=== PATIENT | female | born 1940 | race Caucasian/White ===

== ENCOUNTER → 2016-07-24 | Outpatient (CLI) | payer OTHER ==
[~2016-07-24] MED LIST: CALC500T64 PO; CALCTAB5 PO; CHOL1CAP57 PO; CLIN300C2 PO; CRAN1CAP15 PO; DIGE1CAP7 PO; HYOS1TAB PO; MULTTAB58 PO; OMEGA XL PO; [UNRECOGNIZED DRUG - OTHER]; [UNRECOGNIZED DRUG - OTHER] PO
[2016-07-24 12:43] LABS: BASO % 1.4 %; BASO ABS # 0.08 K/uL (0-0.2); COMPLETE YES; EOS % 3.4 %; HEMATOCRIT 43.1 % (37-47); IG% 0.2 %; LYMPH % 31.7 %; LYMPH ABS # 1.87 K/uL (1.2-3.4); MEAN CELL VOLUME 91.1 fL (80-100); MEAN CORPUSCULAR HGB CONC 32.9 g/dl (32-36); MEAN PLATELET VOLUME 10.2 fL (7.4-10.4); NEUT % 54.3 %; PLATELET COUNT 299 K/uL (130-400); RED BLOOD COUNT 4.73 M/uL (4.2-5.4)
[2016-07-24 14:28] LABS: ALB/GLOB RATIO 1.2 (0.9-2); ALKALINE PHOSPHATASE 74 U/L (45-117); ALT/SGPT 25 U/L (12-78); AST/SGOT 18 U/L (15-37); BLOOD UREA NITROGEN 11 mg/dl (7-18); BUN/CREATININE RATIO 10.8 (10-20); CALCIUM 9.3 mg/dl (8.5-10.1); CARBON DIOXIDE 25 mmol/L (21-32); CHLORIDE 112 mmol/L (98-107); GLUCOSE 99 mg/dl (70-99); POTASSIUM 4.5 mmol/L (3.5-5.1); SODIUM 145 mmol/L (136-145)
--- NOTE | 2016-07-31 10:29 | CODING QUERY MEDICAL NECESSITY ---
CQSUPPORTING DIAGNOSIS NEEDED A supporting diagnosis is required for the test/procedure performed on this patient in order for us to be reimbursed by the patient's insurance. Please provide a supporting diagnosis for the following test/procedure listed below next to the test name along with your signature. *If there is no additional diagnosis for this patient that would support the following test/procedure please document that below next to the test/procedure. Test(s)/Procedure(s) that require a supporting diagnosis: DOS 07/24/16 VITAMIN D VITAMIN B12 Provider Signature: Date: Thank you Shanda [facility] Once completed, please kindly fax back to [phone] For questions please call [phone]
== END | disposition home or self-care (01) ==
LOC: C.LABPVFM 09:51
PROVIDERS: ATTEND Family Medicine
DX: K21.9 Gastro-esophageal reflux disease without esophagitis (principal); R53.83 Other fatigue; E55.9 Vitamin D deficiency, unspecified; M25.50 Pain in unspecified joint

== ENCOUNTER → 2016-11-09 | Outpatient (CLI) | payer OTHER ==
[2016-11-09 12:47] LABS: BASO % 1.4 %; BASO ABS # 0.07 K/uL (0-0.2); COMPLETE YES; EOS % 2.5 %; HEMATOCRIT 43.5 % (37-47); IG% 0.2 %; LYMPH % 34.4 %; LYMPH ABS # 1.67 K/uL (1.2-3.4); MEAN CORPUSCULAR HEMOGLOBIN 29.5 pg (25-34); MEAN CORPUSCULAR HGB CONC 32.4 g/dl (32-36); MONO % 9.7 %; NEUT % 51.8 %; PLATELET COUNT 325 K/uL (130-400); RED BLOOD COUNT 4.78 M/uL (4.2-5.4); WHITE BLOOD COUNT 4.86 K/uL (4.8-10.8)
[2016-11-09 13:09] LABS: ALT/SGPT 20 U/L (12-78); AST/SGOT 17 U/L (15-37); BLOOD UREA NITROGEN 14 mg/dl (7-18); BUN/CREATININE RATIO 11.4 (10-20); CALCIUM 9.3 mg/dl (8.5-10.1); CARBON DIOXIDE 25 mmol/L (21-32); CHLORIDE 109 mmol/L (98-107); GLUCOSE 100 mg/dl (70-99); POTASSIUM 4.1 mmol/L (3.5-5.1); SODIUM 140 mmol/L (136-145)
[2016-11-09 13:20] LABS: ALB/GLOB RATIO 1.2 (0.9-2); ALKALINE PHOSPHATASE 76 U/L (45-117)
[2016-11-13 03:57] LABS: EPSTEIN BARR VIR CAPSID IGG <18.00 U/ML
--- NOTE | 2016-11-20 13:11 | CODING QUERY MEDICAL NECESSITY ---
SUPPORTING DIAGNOSIS NEEDED A supporting diagnosis is required for the test/procedure performed on this patient in order for us to be reimbursed by the patient's insurance. Please provide a supporting diagnosis for the following test/procedure listed below next to the test name along with your signature. *If there is no additional diagnosis for this patient that would support the following test/procedure please document that below next to the test/procedure. Test(s)/Procedure(s) that require a supporting diagnosis: * VITAMIN B12 DIAGNOSIS: Provider Signature: Date: Thank you Jacqueline [place] [facility] Once completed, please kindly fax back to [phone] For questions please call [phone]
== END | disposition home or self-care (01) ==
LOC: C.LABPVFM 15:14
PROVIDERS: ATTEND Neuromusculoskeletal Medicine & OMM
DX: R53.83 Other fatigue (principal); E55.9 Vitamin D deficiency, unspecified; R59.1 Generalized enlarged lymph nodes

== ENCOUNTER 2016-12-03 13:49 | Emergency (ER) | payer OTHER ==
[~2016-12-03] VITALS: Ht 160 cm; Wt 88.0 kg
[~2016-12-03 13:49] MED LIST changes: -CLIN300C2 PO; -HYOS1TAB PO; -[UNRECOGNIZED DRUG - OTHER]
[2016-12-03 13:58] VITALS: TEMP 36.5; Ht 160 cm; Wt 88.0 kg
[2016-12-03] MEDS ORDERED: SODIUM CHLORIDE 0.9% 1000ML 1,000 ML IV STA (14:35)
[2016-12-03] MEDS ORDERED: OPTIRAY 320 IV PRN (14:45)
[2016-12-03 15:04] LABS: BASO % 1.1 %; BASO ABS # 0.07 K/uL (0-0.2); COMPLETE YES; EOS % 2.5 %; HEMATOCRIT 41.5 % (37-47); IG% 0.2 %; LYMPH % 30.2 %; LYMPH ABS # 1.96 K/uL (1.2-3.4); MEAN CELL VOLUME 89.6 fL (80-100); MEAN CORPUSCULAR HGB CONC 33.5 g/dl (32-36); MEAN PLATELET VOLUME 9.2 fL (7.4-10.4); MONO % 9.3 %; NEUT % 56.7 %; PLATELET COUNT 273 K/uL (130-400); RED BLOOD COUNT 4.63 M/uL (4.2-5.4); WHITE BLOOD COUNT 6.48 K/uL (4.8-10.8)
[2016-12-03 15:35] LABS: ALT/SGPT 19 U/L (12-78); AST/SGOT 15 U/L (15-37); BLOOD UREA NITROGEN 13 mg/dl (7-18); BUN/CREATININE RATIO 12.8 (10-20); CALCIUM 9.2 mg/dl (8.5-10.1); CARBON DIOXIDE 24 mmol/L (21-32); CHLORIDE 109 mmol/L (98-107); GLUCOSE 87 mg/dl (70-99); SODIUM 142 mmol/L (136-145)
[2016-12-03 15:38] LABS: ALKALINE PHOSPHATASE 75 U/L (45-117)
[2016-12-03] MEDS ORDERED: HYOS1TAB PO (15:46)
[2016-12-03] MEDS ORDERED: [UNRECOGNIZED DRUG - OTHER] (15:46)
[2016-12-03] MEDS ORDERED: CLIN300C2 PO (15:46)
--- NOTE | 2016-12-03 16:41 | DIAGNOSTIC IMAGING REPORT ---
CT OF THE ABDOMEN AND PELVIS WITH CONTRAST CLINICAL HISTORY: Right lower quadrant abdominal pain. COMPARISON STUDY: CT of the abdomen and pelvis July 07, 2013 and abdominal ultrasound January 26, 2015. TECHNIQUE: Following IV administration of 120 mL of Optiray-320, axial images of the abdomen and pelvis were obtained from the lung bases to the proximal femurs. Images were reviewed in the axial, sagittal, and coronal planes. IV contrast was administered without complication. A dose lowering technique was utilized adhering to the principles of ALARA. CT DOSE: 913.07 mGy.cm FINDINGS: A 1.4 cm hypodense splenic lesion is unchanged since CT of July 07, 2013. This is benign given stability. There is no biliary ductal dilatation status post cholecystectomy. No pancreatic ductal dilatation is present. The adrenal glands are unremarkable. There are bilateral parapelvic cysts. The caliber and wall thickness of small and large bowel are normal. The appendix is normal. There is colonic diverticulosis without evidence for acute diverticulitis. No lymphadenopathy is present. There are no suspicious osseous lesions. Bilateral fat-containing inguinal hernias are present. There is no ascites. No abscess is present. IMPRESSION: 1. No acute process within the abdomen or pelvis. Normal appendix. 2. Colonic diverticulosis without evidence for acute diverticulitis. Electronically signed by: Rony Becerril M.D. 12/03/2016 4:40 PM Dictated Date/Time: 12/03/2016 4:33 PM
[2016-12-03 16:42] VITALS: BP 126/78; PULSE 67; O2SAT 96
[2016-12-03 16:54] LABS: URINE APPEARANCE CLEAR (CLEAR); URINE BILIRUBIN NEG (NEG); URINE COLOR YELLOW; URINE NITRITE NEG (NEG); URINE PH 6.5 (4.5-7.5); URINE SPECIFIC GRAVITY 1.009 (1.000-1.030); UROBILINOGEN NEG (NEG); ZZUR CULT IF INDIC CLEAN CATCH NO
[2016-12-03 17:00] LABS: MANUAL MICROSCOPIC REQUIRED? YES; REVIEW REQ? NO
[2016-12-03] MEDS ORDERED: MAGNESIUM CITRATE 296 ML/BTL PO ONE (17:00)
[2016-12-03 17:11] LABS: URINE BACTERIA NEG (NEG); URINE RBC 0-4 /hpf (0-4)
--- NOTE | 2016-12-03 19:51 | EMERGENCY ROOM VISIT NOTE ---
History Report prepared by Nickolas: Hany Montes Under the Supervision of: Dr. Mauro Munoz D.O. First contact with patient: 13:57 Chief Complaint: ABDOMINAL PAIN Stated Complaint: ABDOMINAL PAIN- UNPREDICTABLE BOWEL MOVEMENTS Nursing Triage Summary: abdominal pain and constipation History of Present Illness The patient is a 76 year old female who presents to the Emergency Room with complaints of constant abdominal pain starting three days ago. The patient states that she has been constipated recently, and she states that three days ago she preformed a fleet enema, and she had only a small bowel movement. She states her last bowel movement before that was four days prior to that. She states that she had a bowel movement yesterday as well. She states that she has been having a dry cough and nausea with the constipation, and she has been taking MiraLAX every night and a muscle relaxer. The patient states that she has similar episodes about once per month for the past couple of years. She has a history of a cholecystectomy, and she states that she still has her appendix. Pt denies headache, change in vision, fevers, chest pain, shortness of breath, vomiting, diarrhea, pain with urination, and melena. Source of History: patient Onset: three days ago Position: abdomen Timing: constant Associated Symptoms: + cough, + nausea Note: Associated symptoms: constipation Review of Systems See HPI for pertinent positives & negatives. A total of 10 systems reviewed and were otherwise negative. Past Medical & Surgical Medical Problems: (1) Cholecystectomy (2) Pulmonary emboli Surgical Problems: (1) H/O: hysterectomy Social History Smoking Status: Never Smoker Marital Status: Housing Status: lives with family Current/Historical Medications Scheduled Clindamycin Hcl (Cleocin), 300 MG PO QID Scheduled PRN Hyoscyamine Sulfate (Levsin), 0.125 MG PO for Muscle Spasms Allergies Coded Allergies: Clarithromycin (Verified Allergy, Unknown, GI UPSET, 12/03/16) Metronidazole (Verified Allergy, Unknown, GI UPSET, 12/03/16) Penicillins (Verified Allergy, Unknown, AMPICILLIN, 12/03/16) Tetracycline (Verified Allergy, Unknown, 12/03/16) Physical Exam Vital Signs Date Time Temp Pulse Resp B/P (MAP) Pulse Ox O2 Delivery O2 Flow Rate FiO2 12/03/16 16:42 67 18 126/78 96 Room Air 12/03/16 13:58 36.5 91 16 139/98 98 Room Air Physical Exam GENERAL: Ambulating throughout the room, in minimal distress, non-toxic. EYE EXAM: normal conjunctiva OROPHARYNX: no exudate, no erythema, lips, buccal mucosa, and tongue normal and mucous membranes are moist NECK: supple, no nuchal rigidity, no adenopathy, non-tender LUNGS: Clear to auscultation. Normal chest wall mechanics HEART: no murmurs, S1 normal and S2 normal ABDOMEN: Minimal tenderness in the right lower quadrant. Abdomen soft, normo- active bowel sounds, no masses, no rebound or guarding. BACK: Back is symmetrical on inspection and there is no deformity, no midline tenderness, no CVA tenderness. SKIN: no rashes and no bruising UPPER EXTREMITIES: upper extremities are grossly normal. LOWER EXTREMITIES: No pitting edema. NEURO EXAM: Normal sensorium, cranial nerves II-XII grossly intact, normal speech, no gross weakness of arms, no gross weakness of legs. Gross sensation intact. Medical Decision & Procedures ER Provider Diagnostic Interpretation: Radiology results as stated below per my review and the radiologist's interpretation: CT OF THE ABDOMEN AND PELVIS WITH CONTRAST CLINICAL HISTORY: Right lower quadrant abdominal pain. COMPARISON STUDY: CT of the abdomen and pelvis July 07, 2013 and abdominal ultrasound January 26, 2015. TECHNIQUE: Following IV administration of 120 mL of Optiray-320, axial images of the abdomen and pelvis were obtained from the lung bases to the proximal femurs. Images were reviewed in the axial, sagittal, and coronal planes. IV contrast was administered without complication. A dose lowering technique was utilized adhering to the principles of ALARA. CT DOSE: 913.07 mGy.cm FINDINGS: A 1.4 cm hypodense splenic lesion is unchanged since CT of July 07, 2013. This is benign given stability. There is no biliary ductal dilatation status post cholecystectomy. No pancreatic ductal dilatation is present. The adrenal glands are unremarkable. There are bilateral parapelvic cysts. The caliber and wall thickness of small and large bowel are normal. The appendix is normal. There is colonic diverticulosis without evidence for acute diverticulitis. No lymphadenopathy is present. There are no suspicious osseous lesions. Bilateral fat-containing inguinal hernias are present. There is no ascites. No abscess is present. IMPRESSION: 1. No acute process within the abdomen or pelvis. Normal appendix. 2. Colonic diverticulosis without evidence for acute diverticulitis. Electronically signed by: Rony Becerril M.D. 12/03/2016 4:40 PM Dictated Date/Time: 12/03/2016 4:33 PM Laboratory Results 12/03/16 14:50 Red Blood Count 4.63, Mean Corpuscular Volume 89.6, Mean Corpuscular Hemoglobin 30.0, Mean Corpuscular Hemoglobin Concent 33.5, Mean Platelet Volume 9.2, Neutrophils (%) (Auto) 56.7, Lymphocytes (%) (Auto) 30.2, Monocytes (%) (Auto) 9.3, Eosinophils (%) (Auto) 2.5, Basophils (%) (Auto) 1.1, Neutrophils # (Auto) 3.68, Lymphocytes # (Auto) 1.96, Monocytes # (Auto) 0.60, Eosinophils # (Auto) 0.16, Basophils # (Auto) 0.07 12/03/16 14:50 Test 12/03/16 14:50 12/03/16 15:50 White Blood Count 6.48 K/uL (4.8-10.8) Red Blood Count 4.63 M/uL (4.2-5.4) Hemoglobin 13.9 g/dL (12.0-16.0) Hematocrit 41.5 % (37-47) Mean Corpuscular Volume 89.6 fL (80-100) Mean Corpuscular Hemoglobin 30.0 pg (25-34) Mean Corpuscular Hemoglobin Concent 33.5 g/dl (32-36) Platelet Count 273 K/uL (130-400) Mean Platelet Volume 9.2 fL (7.4-10.4) Neutrophils (%) (Auto) 56.7 % Lymphocytes (%) (Auto) 30.2 % Monocytes (%) (Auto) 9.3 % Eosinophils (%) (Auto) 2.5 % Basophils (%) (Auto) 1.1 % Neutrophils # (Auto) 3.68 K/uL (1.4-6.5) Lymphocytes # (Auto) 1.96 K/uL (1.2-3.4) Monocytes # (Auto) 0.60 K/uL (0.11-0.59) Eosinophils # (Auto) 0.16 K/uL (0-0.5) Basophils # (Auto) 0.07 K/uL (0-0.2) RDW Standard Deviation 44.6 fL (36.4-46.3) RDW Coefficient of Variation 13.5 % (11.5-14.5) Immature Granulocyte % (Auto) 0.2 % Immature Granulocyte # (Auto) 0.01 K/uL (0.00-0.02) Anion Gap 9.0 mmol/L (3-11) Est Creatinine Clear Calc Drug Dose 50.3 ml/min Estimated GFR () 63.4 Estimated GFR (Non- 54.7 BUN/Creatinine Ratio 12.8 (10-20) Calcium Level 9.2 mg/dl (8.5-10.1) Total Bilirubin 0.5 mg/dl (0.2-1) Direct Bilirubin < 0.1 mg/dl (0-0.2) Aspartate Amino Transf (AST/SGOT) 15 U/L (15-37) Alanine Aminotransferase (ALT/SGPT) 19 U/L (12-78) Alkaline Phosphatase 75 U/L (45-117) Total Protein 6.6 gm/dl (6.4-8.2) Albumin 3.6 gm/dl (3.4-5.0) Lipase 147 U/L (73-393) Urine Color YELLOW Urine Appearance CLEAR (CLEAR) Urine pH 6.5 (4.5-7.5) Urine Specific [place] 1.009 (1.000-1.030) Urine Protein NEG (NEG) Urine Glucose (UA) NEG (NEG) Urine Ketones NEG (NEG) Urine Occult Blood NEG (NEG) Urine Nitrite NEG (NEG) Urine Bilirubin NEG (NEG) Urine Urobilinogen NEG (NEG) Urine Leukocyte Esterase NEG (NEG) Urine WBC (Auto) /hpf (0-5) Urine RBC (Auto) /hpf (0-4) Urine Hyaline Casts (Auto) /lpf (0-5) Urine Epithelial Cells (Auto) /lpf (0-5) Urine Bacteria (Auto) (NEG) Urine RBC 0-4 /hpf (0-4) Urine WBC 1-5 /hpf (0-5) Urine Epithelial Cells 0-5 /lpf (0-5) Urine Bacteria NEG (NEG) Laboratory results per my review. Medications Administered Medications (Trade) Dose Ordered Sig/Franco Route Start Time Stop Time Status Last Admin Dose Admin Sodium Chloride 1,000 ml @ 999 mls/hr Q1H1M STAT IV 12/03/16 14:35 12/03/16 15:35 DC 12/03/16 14:53 999 MLS/HR Magnesium Citrate (Citrate Of Magnesia Soln) 296 ml ONE ONCE PO 12/03/16 17:00 12/03/16 17:01 DC 12/03/16 17:00 296 ML ED Course ED COURSE: Vital signs were reviewed and showed situational hypertension. The patients medical record was reviewed The above diagnostic studies were performed and reviewed. ED treatments and interventions as stated above. 1440: The patient was evaluated in room B9. A complete history and physical examination was performed. 1435: Sodium Chloride 1000 ml @ 999 mls/hr IV 1700: Magnesium Citrate 296ml PO 1705: Upon reevaluation, the patient is doing well.I discussed my findings with the patient and she understands and agrees with the treatment plan. Based on the patients age, coexisting illnesses, exam and lab findings the decision to treat as an outpatient was made. The patient remained stable while under my care. The patient appeared well at the time of discharge. Medical Decision Differential diagnoses includes but is not limited to gastritis, peptic ulcer disease, GERD, gallbladder disease, pancreatitis, small bowel obstruction, acute coronary syndrome, pericarditis, ischemic bowel, irritable bowel disease, irritable bowel syndrome, appendicitis, diverticulitis, malignancy, hernia, urinary tract infection, torsion, /ectopic , perforation, trauma, infectious. Patient is a 76-year-old female who presents to ER for abdominal pain in the right lower quadrant. She notes that she gets these pains about once a month. Symptoms started Saturday after using 2 fleets enemas. Patient did have a small bowel movement. Does have a previous cholecystectomy. CBC along with all BMP, LFTs, bilirubin and lipase is unremarkable. UA was negative. CT of abdomen and pelvis was unremarkable. A she was updated regards to her findings. She is discharged with mag citrate and discharged to follow-up with PCP. She did decline any pain meds that she is feeling better in the ER. Discussed with Pt concerning signs and symptoms to watch out for. Pt was instructed to follow up with their PCP and discussed with the patient their option to return to the ED at anytime for persistent or worsening symptoms. The appropriate anticipatory guidance and out-patient management, including indications for return to the emergency department, were explained at length to the patient and understood. Medication Reconcilliation Current Medication List: was personally reviewed by me Blood Pressure Screening Patient's blood pressure: Elevated blood pressure Blood pressure disposition: Elevated BP felt to be situational Impression Primary Impression: Diffuse abdominal pain Additional Impression: Constipation Scribe Attestation The scribe's documentation has been prepared under my direction and personally reviewed by me in its entirety. I confirm that the note above accurately reflects all work, treatment, procedures, and medical decision making performed by me. Departure Information Dispostion Home / Self-Care Referrals No Doctor, Assigned (PCP) Forms Call Back Authorization, HOME CARE DOCUMENTATION FORM, IMPORTANT VISIT INFORMATION Patient Instructions Abdominal Pain - [facility], ED Constipation, [facility] Additional Instructions Please follow up with your primary care doctor with in the next 24 hours. Any worsening of your symptoms, please return to the ED immediately. This includes any fevers greater than 100.4, worsening pain, chest pain, shortness breath, persistent nausea, vomiting, unable to eat or drink, or any other concerning signs or symptoms from your standpoint. Please take the bottle of mag citrate along with 2 glasses of water. If No bowel movement within 12 hours please take 250 g of MiraLAX and mix with 64 ounces of Gatorade. Please drink 8 ounces every 15-30 minutes until it is completely gone and or you have a bowel movement. Problem Qualifiers Additional Impression: Constipation Constipation type: unspecified constipation type Qualified Codes: K59.00 - Constipation, unspecified
== END 2016-12-03 17:10 | disposition home or self-care (01) ==
LOC: C.EDB 13:50
DX: K59.00 Constipation, unspecified (principal); Z90.49 Acquired absence of other specified parts of digestive tract; Z86.711 Personal history of pulmonary embolism; Z90.710 Acquired absence of both cervix and uterus

== ENCOUNTER → 2017-03-05 | Outpatient (CLI) | payer OTHER ==
[~2017-03-05] MED LIST changes: -CALC500T64 PO; -CALCTAB5 PO; -CHOL1CAP57 PO; +CLIN300C2 PO; -CRAN1CAP15 PO; -DIGE1CAP7 PO; +HYOS1TAB PO; -MULTTAB58 PO; -OMEGA XL PO; -[UNRECOGNIZED DRUG - OTHER] PO
== END | disposition home or self-care (01) ==
LOC: C.LABPVFM 09:32
PROVIDERS: ATTEND Family Medicine
DX: S40.262A Insect bite (nonvenomous) of left shoulder, initial encounter (principal); W57.XXXA Bitten or stung by nonvenomous insect and other nonvenomous arthropods, initial encounter

== ENCOUNTER → 2017-07-11 | Outpatient (CLI) | payer OTHER ==
[2017-07-11 18:28] LABS: ALBUMIN 3.7 gm/dl (3.4-5.0); ALT/SGPT 20 U/L (12-78); AST/SGOT 17 U/L (15-37); BLOOD UREA NITROGEN 14 mg/dl (7-18); CARBON DIOXIDE 26 mmol/L (21-32); CREATININE 1.19 mg/dl (0.60-1.20); GLUCOSE 117 mg/dl (70-99); SODIUM 142 mmol/L (136-145)
[2017-07-11 18:31] LABS: ALKALINE PHOSPHATASE 70 U/L (45-117)
== END | disposition home or self-care (01) ==
LOC: C.LABPVFM 12:03
PROVIDERS: ATTEND Family Medicine
DX: R03.0 Elevated blood-pressure reading, without diagnosis of hypertension (principal)

== ENCOUNTER 2017-09-27 16:25 | Emergency (ER) | payer OTHER ==
[~2017-09-27] VITALS: Ht 161.3 cm; Wt 83.8 kg
[2017-09-27 16:31] VITALS: TEMP 36.4; Ht 161.3 cm; Wt 83.8 kg
[2017-09-27] MEDS ORDERED: MECLIZINE HCL 25 MG TAB PO STA (17:33)
[2017-09-27] MEDS ORDERED: SODIUM CHLORIDE 0.9% 1000ML 1,000 ML IV ONE (17:36)
[2017-09-27 17:55] LABS: BASO % 1.1 %; BASO ABS # 0.07 K/uL (0-0.2); EOS % 2.7 %; EOS ABS # 0.18 K/uL (0-0.5); HEMATOCRIT 42.2 % (37-47); HEMOGLOBIN 14.2 g/dL (12.0-16.0); IG# 0.01 K/uL (0.00-0.02); LYMPH % 23.3 %; LYMPH ABS # 1.55 K/uL (1.2-3.4); MEAN CELL VOLUME 89.6 fL (80-100); MEAN CORPUSCULAR HEMOGLOBIN 30.1 pg (25-34); MEAN CORPUSCULAR HGB CONC 33.6 g/dl (32-36); MEAN PLATELET VOLUME 9.7 fL (7.4-10.4); MONO % 10.1 %; MONO ABS # 0.67 K/uL (0.11-0.59); NEUT % 62.6 %; NEUT ABS # 4.17 K/uL (1.4-6.5); PLATELET COUNT 272 K/uL (130-400); RED CELL DISTRIBUTION WIDTH CV 13.7 % (11.5-14.5); RED CELL DISTRIBUTION WIDTH SD 45.3 fL (36.4-46.3); WHITE BLOOD COUNT 6.65 K/uL (4.8-10.8)
[2017-09-27] MEDS ORDERED: OPTIRAY 320 IV PRN (18:00)
[2017-09-27 18:19] VITALS: O2SAT 98
[2017-09-27 18:22] LABS: ALBUMIN 3.7 gm/dl (3.4-5.0); ALKALINE PHOSPHATASE 71 U/L (45-117); ALT/SGPT 23 U/L (12-78); AST/SGOT 17 U/L (15-37); BLOOD UREA NITROGEN 14 mg/dl (7-18); CALCIUM 8.8 mg/dl (8.5-10.1); CARBON DIOXIDE 24 mmol/L (21-32); CREATININE 1.07 mg/dl (0.60-1.20); GLUCOSE 94 mg/dl (70-99); SODIUM 140 mmol/L (136-145); TOTAL PROTEIN 6.7 gm/dl (6.4-8.2)
--- NOTE | 2017-09-27 19:13 | DIAGNOSTIC IMAGING REPORT ---
CT OF THE HEAD WITHOUT CONTRAST CLINICAL HISTORY: Weakness. Dizziness. COMPARISON STUDY: Head CT June 03, 2015. TECHNIQUE: Helical axial images of the head were obtained without IV contrast. Automated exposure control was utilized for the study. A dose lowering technique was utilized adhering to the principles of ALARA. FINDINGS: No acute intracranial hemorrhage, midline shift or mass effect is present. Ventricular system is normal. Basilar cisterns are patent. There are no extra-axial collections. There are no findings to suggest acute dural sinus thrombosis or acute territorial infarct. Mild white matter hypodensity suggests small vessel disease. There are no significant calvarial abnormalities. Visualized portions of the sinuses and mastoid air cells are clear. IMPRESSION: No acute intracranial findings. Electronically signed by: Rony Becerril M.D. 09/27/2017 7:12 PM Dictated Date/Time: 09/27/2017 7:10 PM
--- NOTE | 2017-09-27 19:18 | DIAGNOSTIC IMAGING REPORT ---
CT ANGIOGRAPHY OF THE NECK WITH CONTRAST CLINICAL HISTORY: Dizziness. Neck pain. Weakness. COMPARISON STUDY: Carotid ultrasound May 04, 2013. Technique: CT angiography of the carotid and vertebral arteries was obtained using [employer] 320 IV and 3D reconstruction on an independent workstation. NASCET criteria was utilized. A dose lowering technique was utilized adhering to the principles of ALARA. Findings: Lung apices are clear. There is no cervical lymphadenopathy. A subcentimeter right lobe thyroid nodule is noted. Epiglottis is normal. No mucosal lesion is identified although these may be occult by CT. Parotid and submandibular glands are normal. The bilateral common carotid, internal carotid and vertebral arteries are patent. There is no stenosis or dissection within the major vessels of the neck. The CTA of the head will be reported separately. IMPRESSION: Unremarkable CTA of the neck. No stenosis or dissection. Electronically signed by: Rony Becerril M.D. 09/27/2017 7:17 PM Dictated Date/Time: 09/27/2017 7:12 PM
--- NOTE | 2017-09-27 19:22 | DIAGNOSTIC IMAGING REPORT ---
CTA ANGIOGRAPHY OF THE HEAD CLINICAL HISTORY: Dizziness. Weakness. COMPARISON STUDY: CTA of the head March 15, 2012. TECHNIQUE: Helical axial images of the head were obtained following uneventful intravenous administration of 115 cc of Optiray 320. A dose lowering technique was utilized adhering to the principles of ALARA. CT DOSE: 1056.17 mGy.cm FINDINGS: Please note that the CTA of the neck will be reported separately. The bilateral M1, 2, A1 and A2 segments are patent. Posterior circulation is intact. No intracranial aneurysm or dissection is noted. There is no abrupt vessel cut off. No intraluminal thrombus is identified. The CT of the head will be reported separately. Ventricular system is normal. Basilar cisterns are patent. There are no extra-axial collections. IMPRESSION: Unremarkable CTA of the head. Electronically signed by: Rony Becerril M.D. 09/27/2017 7:21 PM Dictated Date/Time: 09/27/2017 7:18 PM
[2017-09-27] MEDS ORDERED: KETOROLAC TROMETHAMINE 30 MG/ML VIAL IV STA (19:51)
[2017-09-27] MEDS ORDERED: ONDANSETRON INJ 2 MG/ML 2 ML VIAL IV STA (20:34)
--- NOTE | 2017-09-27 21:48 | DIAGNOSTIC IMAGING REPORT ---
MRI OF THE BRAIN WITHOUT CONTRAST CLINICAL HISTORY: Headache, dizzy and vomiting. COMPARISON STUDY: MRI of the brain September 11, [address]/CTA of the head performed earlier today. TECHNIQUE: Utilizing a 1.5 Molly magnet and dedicated coil, multiplanar, multiecho imaging of the brain was performed without IV contrast. FINDINGS: There are no foci of restricted diffusion to suggest acute infarct. No acute intracranial hemorrhage, midline shift or mass effect is present. Brain volume is normal for age. Ventricular system is unremarkable. Basilar cisterns are patent. There are no extra-axial collections. Flow-voids for the major intracranial vessels are present. No intracranial masses are identified on this unenhanced exam. White matter T2 hyperintense foci suggest mild small vessel disease. Orbits are unremarkable. Sinuses are clear. IMPRESSION: No acute intracranial findings. Electronically signed by: Rony Becerril M.D. 09/27/2017 9:46 PM Dictated Date/Time: 09/27/2017 9:43 PM
--- NOTE | 2017-09-27 22:05 | EMERGENCY ROOM VISIT NOTE ---
History Report prepared by Nickolas: María Elena Zhu Under the Supervision of: Dr. Nile Chavez M.D. First contact with patient: 17:14 Chief Complaint: DIZZY Stated Complaint: REFERRED BY DR FOR CAT SCAN, DIZZINESS,NECK PAIN History of Present Illness The patient is a 77 year old female who presents to the Emergency Room with complaints of intermittent dizziness starting a month ago. The patient states that 3 weeks ago she went to her PCP for a fullness feeling in her ears that intermittently is a shooting pain. She states that with the ear pain, she has had positional dizziness and a headache. She describes the headache as a pressure. She reports the her PCP did not do anything. She notes that she saw her chiropractor shortly after who recommended she see a therapist for vestibular therapy. The patient states that she had her first session 2 days ago. She states that the therapy made her vomit, but after seemed to help her dizziness. She states that yesterday she took it easy, but this morning she woke up without any balance. She notes that she has tried taking Tylenol with some relief. She notes that she was given medications for vertigo, but since it is mainly positional, she has not taken them. The patient complains of neck pain , nausea, pain in her right eye, seeing prisms in her bilateral eyes, and intermittent complete vision loss in her right eye. She notes that she last had vision loss last a month ago and it lasted for 15 minutes. The patient denies recent falls, numbness, weakness, fever, vomiting, loss of appetite, and use of a blood thinner. Source of History: patient Onset: a month ago Quality: other (dizziness) Timing: intermittent Modifying Factors (Worsening): other (positional) Modifying Factors (Relieving): tylenol, other (vestibular therapy) Associated Symptoms: + headache, + neck pain, + nausea, No fevers, No vomiting, No weakness, No numbness Note: The patient complains of ear pain, pain in her right eye, seeing prisms in her bilateral eyes, and intermittent complete vision loss in her right eye. The patient denies loss of appetite. Review of Systems See HPI for pertinent positives and negatives. A total of ten systems were reviewed and were otherwise negative. Past Medical & Surgical Medical Problems: (1) Cholecystectomy (2) Pulmonary emboli Surgical Problems: (1) H/O: hysterectomy Family History No pertinent family history Social History Smoking Status: Never Smoker Marital Status: Housing Status: lives with family Current/Historical Medications Scheduled Clindamycin Hcl (Cleocin), 300 MG PO QID Scheduled PRN Hyoscyamine Sulfate (Levsin), 0.125 MG PO for Muscle Spasms Allergies Coded Allergies: Penicillins (Verified Allergy, Unknown, AMPICILLIN, 12/03/16) Tetracycline (Verified Allergy, Unknown, 12/03/16) Clarithromycin (Unverified Adverse Reaction, Unknown, GI UPSET, 09/27/17) Metronidazole (Unverified Adverse Reaction, Unknown, GI UPSET, 09/27/17) Physical Exam Vital Signs Date Time Temp Pulse Resp B/P (MAP) Pulse Ox O2 Delivery O2 Flow Rate FiO2 09/27/17 22:47 72 16 130/78 96 09/27/17 21:37 62 18 150/83 98 Room Air 09/27/17 20:00 63 17 163/80 98 Room Air 09/27/17 19:46 61 16 153/83 96 Room Air 09/27/17 18:41 63 09/27/17 18:19 98 Room Air 09/27/17 18:19 75 143/79 99 71 147/82 79 135/83 09/27/17 16:31 36.4 75 17 156/95 97 Room Air Physical Exam GENERAL: Awake, alert, well-appearing, in no distress HENT: Normocephalic, atraumatic. Oropharynx unremarkable. EYES: Normal conjunctiva. Sclera non-icteric. NECK: Supple. No nuchal rigidity. RESPIRATORY: Clear to auscultation. No wheezes. Normal respiratory effort. CARDIAC: Normal rate. Normal rhythm. Extremities warm and well perfused. GI: Soft, non-distended. No tenderness to palpation. No rebound or guarding. No masses. RECTAL: Deferred. MUSCULOSKELETAL: Atraumatic. Chest examination reveals no tenderness. The back is symmetrical on inspection without obvious abnormality. There is no CVA tenderness to palpation. LOWER EXTREMITIES: Calves are equal size bilaterally and non-tender. No edema NEURO: Normal sensorium. No sensory or motor deficits noted. SKIN: Warm and dry. No rash or jaundice noted. Medical Decision & Procedures ER Provider Diagnostic Interpretation: Radiology results as stated below per my review and radiologist interpretation: CT ANGIOGRAPHY OF THE NECK WITH CONTRAST CLINICAL HISTORY: Dizziness. Neck pain. Weakness. COMPARISON STUDY: Carotid ultrasound May 04, 2013. Technique: CT angiography of the carotid and vertebral arteries was obtained using Optiray 320 IV and 3D reconstruction on an independent workstation. NASCET criteria was utilized. A dose lowering technique was utilized adhering to the principles of ALARA. Findings: Lung apices are clear. There is no cervical lymphadenopathy. A subcentimeter right lobe thyroid nodule is noted. Epiglottis is normal. No mucosal lesion is identified although these may be occult by CT. Parotid and submandibular glands are normal. The bilateral common carotid, internal carotid and vertebral arteries are patent. There is no stenosis or dissection within the major vessels of the neck. The CTA of the head will be reported separately. IMPRESSION: Unremarkable CTA of the neck. No stenosis or dissection. Electronically signed by: Rony Becerril M.D. 09/27/2017 7:17 PM Dictated Date/Time: 09/27/2017 7:12 PM CTA ANGIOGRAPHY OF THE HEAD CLINICAL HISTORY: Dizziness. Weakness. COMPARISON STUDY: CTA of the head March 15, 2012. TECHNIQUE: Helical axial images of the head were obtained following uneventful intravenous administration of 115 cc of Optiray 320. A dose lowering technique was utilized adhering to the principles of ALARA. CT DOSE: 1056.17 mGy.cm FINDINGS: Please note that the CTA of the neck will be reported separately. The bilateral M1, 2, A1 and A2 segments are patent. Posterior circulation is intact. No intracranial aneurysm or dissection is noted. There is no abrupt vessel cut off. No intraluminal thrombus is identified. The CT of the head will be reported separately. Ventricular system is normal. Basilar cisterns are patent. There are no extra-axial collections. IMPRESSION: Unremarkable CTA of the head. Electronically signed by: Rony Becerril M.D. 09/27/2017 7:21 PM Dictated Date/Time: 09/27/2017 7:[address] OF THE HEAD WITHOUT CONTRAST CLINICAL HISTORY: Weakness. Dizziness. COMPARISON STUDY: Head CT June 03, 2015. TECHNIQUE: Helical axial images of the head were obtained without IV contrast. Automated exposure control was utilized for the study. A dose lowering technique was utilized adhering to the principles of ALARA. FINDINGS: No acute intracranial hemorrhage, midline shift or mass effect is present. Ventricular system is normal. Basilar cisterns are patent. There are no extra-axial collections. There are no findings to suggest acute dural sinus thrombosis or acute territorial infarct. Mild white matter hypodensity suggests small vessel disease. There are no significant calvarial abnormalities. Visualized portions of the sinuses and mastoid air cells are clear. IMPRESSION: No acute intracranial findings. Electronically signed by: Rony Becerril M.D. 09/27/2017 7:12 PM Dictated Date/Time: 09/27/2017 7:10 PM MRI OF THE BRAIN WITHOUT CONTRAST CLINICAL HISTORY: Headache, dizzy and vomiting. COMPARISON STUDY: MRI of the brain September 11, [address]/CTA of the head performed earlier today. TECHNIQUE: Utilizing a 1.5 Molly magnet and dedicated coil, multiplanar, multiecho imaging of the brain was performed without IV contrast. FINDINGS: There are no foci of restricted diffusion to suggest acute infarct. No acute intracranial hemorrhage, midline shift or mass effect is present. Brain volume is normal for age. Ventricular system is unremarkable. Basilar cisterns are patent. There are no extra-axial collections. Flow-voids for the major intracranial vessels are present. No intracranial masses are identified on this unenhanced exam. White matter T2 hyperintense foci suggest mild small vessel disease. Orbits are unremarkable. Sinuses are clear. IMPRESSION: No acute intracranial findings. Electronically signed by: Rony Becerril M.D. 09/27/2017 9:46 PM Dictated Date/Time: 09/27/2017 9:43 PM Laboratory Results 09/27/17 17:44 Red Blood Count 4.71, Mean Corpuscular Volume 89.6, Mean Corpuscular Hemoglobin 30.1, Mean Corpuscular Hemoglobin Concent 33.6, Mean Platelet Volume 9.7, Neutrophils (%) (Auto) 62.6, Lymphocytes (%) (Auto) 23.3, Monocytes (%) (Auto) 10.1, Eosinophils (%) (Auto) 2.7, Basophils (%) (Auto) 1.1, Neutrophils # (Auto ) 4.17, Lymphocytes # (Auto) 1.55, Monocytes # (Auto) 0.67, Eosinophils # (Auto ) 0.18, Basophils # (Auto) 0.07 09/27/17 17:44 Test 09/27/17 17:44 09/27/17 18:25 White Blood Count 6.65 K/uL (4.8-10.8) Red Blood Count 4.71 M/uL (4.2-5.4) Hemoglobin 14.2 g/dL (12.0-16.0) Hematocrit 42.2 % (37-47) Mean Corpuscular Volume 89.6 fL (80-100) Mean Corpuscular Hemoglobin 30.1 pg (25-34) Mean Corpuscular Hemoglobin Concent 33.6 g/dl (32-36) Platelet Count 272 K/uL (130-400) Mean Platelet Volume 9.7 fL (7.4-10.4) Neutrophils (%) (Auto) 62.6 % Lymphocytes (%) (Auto) 23.3 % Monocytes (%) (Auto) 10.1 % Eosinophils (%) (Auto) 2.7 % Basophils (%) (Auto) 1.1 % Neutrophils # (Auto) 4.17 K/uL (1.4-6.5) Lymphocytes # (Auto) 1.55 K/uL (1.2-3.4) Monocytes # (Auto) 0.67 K/uL (0.11-0.59) Eosinophils # (Auto) 0.18 K/uL (0-0.5) Basophils # (Auto) 0.07 K/uL (0-0.2) RDW Standard Deviation 45.3 fL (36.4-46.3) RDW Coefficient of Variation 13.7 % (11.5-14.5) Immature Granulocyte % (Auto) 0.2 % Immature Granulocyte # (Auto) 0.01 K/uL (0.00-0.02) Erythrocyte Sedimentation Rate 11 mm/hr (0-21) Anion Gap 7.0 mmol/L (3-11) Est Creatinine Clear Calc Drug Dose 45.6 ml/min Estimated GFR () 58.0 Estimated GFR (Non- 50.0 BUN/Creatinine Ratio 13.2 (10-20) Calcium Level 8.8 mg/dl (8.5-10.1) Total Bilirubin 0.4 mg/dl (0.2-1) Direct Bilirubin 0.1 mg/dl (0-0.2) Aspartate Amino Transf (AST/SGOT) 17 U/L (15-37) Alanine Aminotransferase (ALT/SGPT) 23 U/L (12-78) Alkaline Phosphatase 71 U/L (45-117) Troponin I < 0.015 ng/ml (0-0.045) C-Reactive Protein < 0.29 mg/dl (0-0.29) Total Protein 6.7 gm/dl (6.4-8.2) Albumin 3.7 gm/dl (3.4-5.0) Thyroid Stimulating Hormone (TSH) 1.800 uIu/ml (0.300-4.500) Urine Color YELLOW Urine Appearance CLEAR (CLEAR) Urine pH 5.5 (4.5-7.5) Urine Specific Ramona 1.009 (1.000-1.030) Urine Protein NEG (NEG) Urine Glucose (UA) NEG (NEG) Urine Ketones NEG (NEG) Urine Occult Blood NEG (NEG) Urine Nitrite NEG (NEG) Urine Bilirubin NEG (NEG) Urine Urobilinogen NEG (NEG) Urine Leukocyte Esterase NEG (NEG) Laboratory results reviewed by me Medications Administered Medications (Trade) Dose Ordered Sig/Franco Route Start Time Stop Time Status Last Admin Dose Admin Meclizine HCl (Antivert Tab) 25 mg NOW STAT PO 09/27/17 17:33 09/27/17 17:36 DC 09/27/17 18:29 25 MG Sodium Chloride 1,000 ml @ 999 mls/hr Q1H1M ONCE IV 09/27/17 17:36 09/27/17 18:36 DC 09/27/17 18:29 999 MLS/HR Ketorolac Tromethamine (Toradol Inj) 15 mg NOW STAT IV 09/27/17 19:51 09/27/17 19:52 DC 09/27/17 20:09 15 MG Ondansetron HCl (Zofran Inj) 4 mg NOW STAT IV 09/27/17 20:34 09/27/17 20:36 DC 09/27/17 20:48 4 MG ECG Per My Interpretation Indication: other (dizziness) Rate (beats per minute): 60 Rhythm: normal sinus Findings: RBBB (incomplete), other (no ST segment elevations, normal axis) Comparison ECG Date: 07/13/2015 Change: no significant change ED Course 1716: The patient was evaluated in room B11A. A complete history and physical exam was performed. 1733: Ordered Meclizine HCl 25 mg PO. 1735: Ordered NSS 1000 ml @ 999 mls/hr IV. 1950: Ordered Toradol Inj 15 mg IV. 2012: I reevaluated the patient and she became dizzy in Ct. She still is complaining of a headache. 2029: I reevaluated the patient and she became nauseous. She did vomit a this time. 2032: I discussed the patient's case with Dr. Hunter- [facility] Hospitalist. He would like an MRI done on the patient. 2033: Ordered Zofran Inj 4 mg IV. 2151: I reevaluated the patient and she was able to ambulate to the restroom her self with one assist. No further nausea or vomiting. Discussed options going forward. Discussed results and discharge instructions: She verbalized understanding and agreement. The patient is ready for discharge. Medical Decision Differential diagnosis: Etiologies such as benign positional vertigo, dehydration, hypovolemia, anemia, tumor, infection, hypoglycemia, electrolyte abnormalities, cardiac sources, intracerebral event, toxicologic, neurologic, as well as others were entertained. Patient presents with complaint of headache and dizziness but somewhat positional over the past 3-4 weeks. Seen by her primary care physician several times and referred for vestibular therapy. This completes several days ago but feels more unsteady. Denies significant trauma. Denies falls. States occasionally her vision is off and states transient episode of monocular vision loss 2-3 times several weeks ago. Inflammatory markers are not elevated. No eye pain at this time. Some diffuse pain of the back of her head. Not on antiplatelet or anticoagulation. CT the head and CTA's was completed. I do not believe this represents temporal arteritis. Basic labs and EKG were completed as well. Seems somewhat positional and seems to be a more peripheral vertiginous process. CTs and CTAs are unremarkable. Laboratory studies are unremarkable. Believe this is more of a peripheral process again given Antivert. Given some Toradol for pain here. Patient has difficulty ambulating and began to vomit here. Discussed with hospitalist and will obtain MRI for further differentiation of possible small posterior fossa stroke but otherwise he is unsure that further workup is acutely necessary as an inpatient. MRI was completed without acute findings. Patient was able to ambulate with some assist to the bathroom a second time after MRI. MRI results are reassuring. She does have a walker utilize at home. Again rediscussed options with the patient and patient feels workup will going home now. We will discharge the patient and recommend close outpatient follow-up. Discussed return precautions with the patient and her . Discussed the use of [id number] pain medicines for headache along with regularly using her already prescribed for vertigo medicine. Recommended she have a ophthalmologic evaluation which she was in agreement with. We will proceed with discharge. Medication Reconcilliation Current Medication List: was personally reviewed by me Blood Pressure Screening Patient's blood pressure: Elevated blood pressure Blood pressure disposition: Referred to PCP Consults Time Called: 2028 Consulting Physician: Dr. Palak [facility]ARC[facility] Hospitalist Returned Call: 2032 I discussed the patient's case with Dr. Palak [facility] Hospitalist. He would like an MRI done on the patient. Impression Primary Impression: Dizziness Additional Impression: Vertigo Scribe Attestation The scribe's documentation has been prepared under my direction and personally reviewed by me in its entirety. I confirm that the note above accurately reflects all work, treatment, procedures, and medical decision making performed by me. Departure Information Dispostion Home / Self-Care Referrals Martine Hernandez M.D. (PCP) Patient Instructions My [facility] Additional Instructions Please continue to maintain hydration status. Please use the antivertigo medicine regularly along with Tylenol or Motrin to assist with pain control. Would recommend close outpatient follow-up with her primary doctor on Saturday or Saturday. If you have any new concerns or symptoms please represent for reevaluation. Please be very careful to avoid falls and utilize your walker for stability. Would also recommend ophthalmological follow-up as well. Problem Qualifiers
[2017-09-27 22:47] VITALS: BP 130/78; PULSE 72; O2SAT 96
== END 2017-09-27 22:47 | disposition home or self-care (01) ==
LOC: C.EDB 16:28
DX: R42 Dizziness and giddiness (principal); R51 Headache; R03.0 Elevated blood-pressure reading, without diagnosis of hypertension; Z86.711 Personal history of pulmonary embolism; Z88.0 Allergy status to penicillin; Z88.1 Allergy status to other antibiotic agents

== ENCOUNTER 2020-01-13 12:32 | Observation (INO) ==
[2020-01-13] MEDS ORDERED: PANTOprazole 80 MG in DEXTROSE 5% 100 ML IV ONE (13:22)
[2020-01-13] MEDS ORDERED: PANTOPRAZOLE BOLUS/DRIP 1 EA IV STA (13:22)
[2020-01-13 13:23] LABS: Basophils # (auto) 0.05 K/uL (0-0.2); Basophils % (auto) 0.8 %; Eosinophils # (auto) 0.13 K/uL (0-0.5); Hematocrit (blood only) 38.1 % (37-47); Hemoglobin 12.5 g/dL (12.0-16.0); Immature Granulocytes # (auto) 0.01 K/uL (0.00-0.02); Immature Granulocytes % (auto) 0.2 %; Lymphocytes # (auto) 1.65 K/uL (1.2-3.4); Mean Corpuscular Hemoglobin 29.8 pg (25-34); Mean Corpuscular Hgb Conc 32.8 g/dL (32-36); Mean Corpuscular Volume 90.7 fL (80-100); Mean Platelet Volume 9.5 fL (7.4-10.4); Monocytes # (auto) 0.64 K/uL (0.11-0.59); Monocytes % (auto) 9.7 %; Neutrophils # (auto) 4.11 K/uL (1.4-6.5); Neutrophils % (auto) 62.3 %; Platelet Count 289 K/uL (130-400); RDW Coefficient of Variation 13.7 % (11.5-14.5); RDW Standard Deviation 44.9 fL (36.4-46.3); White Blood Count 6.59 K/uL (4.8-10.8)
[2020-01-13] MEDS ORDERED: SODIUM CHLORIDE 0.9% 1000ML 1,000 ML IV ONE (13:25)
--- NOTE | 2020-01-13 13:25 | Emergency Department Note ---
Impression & Plan Acute GI bleeding, High serum chloride, Gastric mass ED Provider Note NAME: LEANNA KENNEDY AGE: 79 SEX: F : 1940 ARRIVES VIA: Walk-In INFORMANT: Patient ED PROVIDER(S): Mauro Munoz DO CHIEF COMPLAINT: Black stools HPI: Patient is a 79-year-old female who presents ER for black tarry stools. This is been present for the past 3 days. She denies any blood thinners. No headache or change in vision. No chest pain or shortness of breath. She admits to right lower quadrant abdominal pain as well as a diffuse crampy pain. Pain is an 8 out of 10. No other exacerbating or remitting factors. No dysuria urgency or frequency. Admits to previous colonoscopy over [address] Crow Roe. ROS: See above HPI for pertinent positives & negatives. A total of 10 systems reviewed and were otherwise negative. PAST MEDICAL HISTORY:See Below PAST SURGICAL HISTORY:See Below FAMILY HISTORY:See Below SOCIAL HISTORY:See Below HOME MEDICATIONS:See Below ALLERGIES:See Below VITALS:See Below PHYSICAL EXAMINATION: GENERAL: Sitting up in bed, alert, well appearing, well nourished, no distress, non-toxic EYE EXAM: normal conjunctiva. OROPHARYNX: no exudate, no erythema, lips, buccal mucosa, and tongue normal and mucous membranes are moist NECK: supple, no nuchal rigidity, no adenopathy, non-tender LUNGS: Clear to auscultation. Normal chest wall mechanics HEART: no murmurs, S1 normal and S2 normal ABDOMEN: abdomen soft, non-tender, normo-active bowel sounds, no masses, no rebound or guarding. RECTAL: Heme positive black stool SKIN: no rashes and no bruising UPPER EXTREMITIES: upper extremities are grossly normal. LOWER EXTREMITIES: No pitting edema. NEURO EXAM: Normal sensorium, cranial nerves II-XII grossly intact, normal speech, no gross weakness of arms, no gross weakness of legs. MEDICAL DECISION MAKING: Patient is a 79-year-old female who presents the ER for dark tarry stools that has been present for the past 72 hours. She denies any blood thinners. Does have a diffuse crampy lower abdominal pain. IV was established blood work was obtained. Labs show no significant leukocytosis or anemia. INR was unremarkable. BMP with elevated chloride. LFTs bilirubin and troponin was unremarkable. Lipase was normal. Stool was heme positive dark tarry. Patient was placed on Protonix drip and bolus. CT abdomen pelvis showed abnormal mass of the stomach. Patient was updated bedside. Discussed with hospitalist for further evaluation. Discussed with Dr. Crow Roe gastroenterology as well who evaluate the patient at bedside. Triage Nursing notes reviewed. Prior medical records reviewed Vital Signs: reviewed and remarkable for tachy and HTN Differential diagnosis: Differential diagnosis includes etiologies such as diverticulitis, div erticulosis, AVM, coagulopathy, colitis, inflammatory bowel disease, malignancy, Tasneem-Jones tear, esophagitis, peptic ulcer disease, variceal bleed, gastritis, epistaxis, fissure, hemorrhoids, as well as others were entertained. ER treatment provided: See below Diagnostics interpreted by me: ECG: none Cardiac Monitoring: An order was placed for continuous cardiac monitoring. The monitor shows a rate of 88 with sinus rhythm. Laboratory studies: As stated above and show below. Imaging studies: CT abdomen pelvis shows abnormal mass in the gastric region Consultation(s): Discussed with Dr. Crow Roe who evaluated patient at bedside Discussed with Dr. Sebastián Claros for further evaluation ED COURSE: Procedures: none Critical Care: None Past Med/Surg History Medical History (Updated 01/13/20 @ 19:04 by Mauro Munoz DO) Epigastric pain Heart murmur Pulmonary emboli Secondary hyperparathyroidism Surgical History H/O: hysterectomy Family History Grandmother Myocardial infarction Other No pertinent family history Denies family history of Ovarian cancer Prostate cancer Breast cancer Colorectal cancer Social History Smoking Status: Never smoker Hx Alcohol Use: No Hx Substance Use: No Feels Safe at Home: Yes Dental Care, Regularly: No Seatbelt Use: always Allergies Allergies Allergy/AdvReac Type Severity Reaction Status Date / Time Penicillins Allergy Unknown AMPICILLIN Verified 01/13/20 14:54 tetracycline Allergy Unknown Verified 01/13/20 14:54 clarithromycin AdvReac Unknown GI UPSET Unverified 01/13/20 14:54 metronidazole AdvReac Unknown GI UPSET Unverified 01/13/20 14:54 Ampicillin CAPS Allergy Unknown Unknown Uncoded 01/13/20 14:54 Flagyl Allergy Unknown Unknown Uncoded 01/13/20 14:54 Home Meds Home Medications Medication Instructions Recorded Confirmed multivitamin 1 tab PO DAILY 01/29/18 01/13/20 turmeric 400 mg capsule 400 mg PO TID cap 10/14/18 01/13/20 cholecalciferol (vitamin D3) 125 5,000 units PO DAILY 01/09/19 01/13/20 mcg (5,000 unit) capsule Colloidal Silver 0 mg PO DAILY 01/13/20 01/13/20 calcium carbonate [Calcium 500] 1,000 mg PO DAILY 01/13/20 01/13/20 magnesium oxide 500 mg PO DAILY 01/13/20 01/13/20 potassium gluconate 595 mg PO DAILY 01/13/20 01/13/20 Results & Data (ED) Vital Signs Vital Signs - 24 hr 01/13/20 12:36 01/13/20 13:28 01/13/20 13:40 Temperature 36.7 C Temperature Source Oral Pulse Rate 94 H 73 Pulse Rate from SpO2 Sensor 73 Respiratory Rate 20 21 Respiratory Effort / Characteristics Non-Labored Spontaneous Respiratory Depth Normal Respiratory Pattern Regular Blood Pressure 146/81 H 137/79 Blood Pressure Mean 102 104 Pulse Oximetry 97 97 97 Oxygen Delivery Method Room Air Room Air Room Air Sepsis Recent Fever Within 48 Hours No Sepsis New/Unexplained Change in Mental Status N/A Sepsis Action Taken by Nursing No Action Required 01/13/20 13:45 01/13/20 14:00 01/13/20 14:49 Temperature Temperature Source Pulse Rate 74 67 70 Pulse Rate from SpO2 Sensor 74 68 70 Respiratory Rate 24 16 17 Respiratory Effort / Characteristics Respiratory Depth Respiratory Pattern Blood Pressure 114/77 121/84 Blood Pressure Mean 89 92 Pulse Oximetry 96 96 99 Oxygen Delivery Method Room Air Room Air Room Air Sepsis Recent Fever Within 48 Hours Sepsis New/Unexplained Change in Mental Status Sepsis Action Taken by Nursing 01/13/20 15:00 01/13/20 15:30 01/13/20 16:00 Temperature Temperature Source Pulse Rate 62 64 67 Pulse Rate from SpO2 Sensor 64 64 68 Respiratory Rate 19 16 14 Respiratory Effort / Characteristics Respiratory Depth Respiratory Pattern Blood Pressure 132/73 131/80 141/92 H Blood Pressure Mean 91 91 101 Pulse Oximetry 98 97 99 Oxygen Delivery Method Room Air Room Air Room Air Sepsis Recent Fever Within 48 Hours Sepsis New/Unexplained Change in Mental Status Sepsis Action Taken by Nursing 01/13/20 16:30 01/13/20 17:00 01/13/20 17:30 Temperature Temperature Source Pulse Rate 61 63 60 Pulse Rate from SpO2 Sensor 61 63 61 Respiratory Rate 18 20 14 Respiratory Effort / Characteristics Respiratory Depth Respiratory Pattern Blood Pressure 140/79 140/80 136/75 Blood Pressure Mean 99 97 99 Pulse Oximetry 98 95 97 Oxygen Delivery Method Room Air Room Air Room Air Sepsis Recent Fever Within 48 Hours Sepsis New/Unexplained Change in Mental Status Sepsis Action Taken by Nursing 01/13/20 18:00 01/13/20 18:30 Temperature Temperature Source Pulse Rate 71 62 Pulse Rate from SpO2 Sensor 70 62 Respiratory Rate 18 19 Respiratory Effort / Characteristics Respiratory Depth Respiratory Pattern Blood Pressure 127/77 Blood Pressure Mean 94 Pulse Oximetry 97 95 Oxygen Delivery Method Room Air Room Air Sepsis Recent Fever Within 48 Hours Sepsis New/Unexplained Change in Mental Status Sepsis Action Taken by Nursing Laboratory Data Result diagrams: 01/13/20 13:11 01/13/20 13:11 Lab Results 01/13/20 01/13/20 01/13/20 Range/Units 13:11 13:11 13:11 WBC 6.59 (4.8-10.8) K/uL RBC 4.20 (4.2-5.4) M/uL Hgb 12.5 (12.0-16.0) g/dL Hct 38.1 (37-47) % MCV 90.7 (80-100) fL MCH 29.8 (25-34) pg MCHC 32.8 (32-36) g/dL RDW Std Deviation 44.9 (36.4-46.3) fL RDW Coeff of Arleen 13.7 (11.5-14.5) % Plt Count 289 (130-400) K/uL MPV 9.5 (7.4-10.4) fL Immature Gran % (Auto) 0.2 % Neut % (Auto) 62.3 % Lymph % (Auto) 25.0 % Linn % (Auto) 9.7 % Eos % (Auto) 2.0 % Baso % (Auto) 0.8 % Neut # (Auto) 4.11 (1.4-6.5) K/uL Lymph # (Auto) 1.65 (1.2-3.4) K/uL Linn # (Auto) 0.64 H (0.11-0.59) K/uL Eos # (Auto) 0.13 (0-0.5) K/uL Baso # (Auto) 0.05 (0-0.2) K/uL Immature Gran # (Auto) 0.01 (0.00-0.02) K/uL PT 10.8 (9.0-12.0) Seconds INR 1.0 (0.9-1.1) APTT 25.8 (21.0-31.0) Seconds PTT Ratio 0.9 Sodium 141 (136-145) mmol/L Potassium 3.9 (3.5-5.1) mmol/L Chloride 110 H (98-107) mmol/L Carbon Dioxide 27 (21-32) mmol/L Anion Gap 4.0 (3-11) BUN 18 (7-18) mg/dl Creatinine 1.16 (0.6-1.2) mg/dl Est Cr Clr Drug Dosing 40.9 ml/min Est GFR ( Amer) 51.9 Est GFR (Non-Af Amer) 44.7 BUN/Creatinine Ratio 15.7 (10-20) Glucose 112 H (70-99) mg/dl Calcium 9.5 (8.5-10.1) mg/dl Total Bilirubin 0.3 (0.2-1) mg/dl AST 22 (15-37) U/L ALT 22 (12-78) U/L Alkaline Phosphatase 69 (45-117) U/L Troponin I (0-0.045) ng/ml Total Protein 6.6 (6.4-8.2) gm/dl Albumin 3.6 (3.4-5.0) gm/dl Globulin 3.0 (2.5-4.0) gm/dl Albumin/Globulin Ratio 1.2 (0.9-2) Lipase 154 (73-393) U/L POC Stool Occult Blood (Negative) Blood Type Antibody Screen 01/13/20 01/13/20 01/13/20 Range/Units 13:52 13:52 Unknown WBC (4.8-10.8) K/uL RBC (4.2-5.4) M/uL Hgb (12.0-16.0) g/dL Hct (37-47) % MCV (80-100) fL MCH (25-34) pg MCHC (32-36) g/dL RDW Std Deviation (36.4-46.3) fL RDW Coeff of Arleen (11.5-14.5) % Plt Count (130-400) K/uL MPV (7.4-10.4) fL Immature Gran % (Auto) % Neut % (Auto) % Lymph % (Auto) % Linn % (Auto) % Eos % (Auto) % Baso % (Auto) % Neut # (Auto) (1.4-6.5) K/uL Lymph # (Auto) (1.2-3.4) K/uL Linn # (Auto) (0.11-0.59) K/uL Eos # (Auto) (0-0.5) K/uL Baso # (Auto) (0-0.2) K/uL Immature Gran # (Auto) (0.00-0.02) K/uL PT (9.0-12.0) Seconds INR (0.9-1.1) APTT (21.0-31.0) Seconds PTT Ratio Sodium (136-145) mmol/L Potassium (3.5-5.1) mmol/L Chloride (98-107) mmol/L Carbon Dioxide (21-32) mmol/L Anion Gap (3-11) BUN (7-18) mg/dl Creatinine (0.6-1.2) mg/dl Est Cr Clr Drug Dosing ml/min Est GFR ( Amer) Est GFR (Non-Af Amer) BUN/Creatinine Ratio (10-20) Glucose (70-99) mg/dl Calcium (8.5-10.1) mg/dl Total Bilirubin (0.2-1) mg/dl AST (15-37) U/L ALT (12-78) U/L Alkaline Phosphatase (45-117) U/L Troponin I < 0.015 (0-0.045) ng/ml Total Protein (6.4-8.2) gm/dl Albumin (3.4-5.0) gm/dl Globulin (2.5-4.0) gm/dl Albumin/Globulin Ratio (0.9-2) Lipase (73-393) U/L POC Stool Occult Blood Positive A (Negative) Blood Type A Positive Antibody Screen NEGATIVE Administered Medications Pantoprazole Sodium 40 mg/ (Dextrose) 100 mls @ 20 mls/hr IV Q5H LINH Stop: 02/12/20 13:37 Last Admin: 01/13/20 14:05 Dose: 8 mg/hr, 20 mls/hr Documented by: [id number] Discontinued Medications Pantoprazole Sodium (Protonix Bolus/Drip) 0 mls @ 1 mls/hr IV ONE STA Stop: 01/13/20 13:23 Last Admin: 01/13/20 13:44 Dose: Not Given Documented by: [id number] Pantoprazole Sodium 80 mg/ (Dextrose) 120 mls @ 400 mls/hr IV NOW ONE Stop: 01/13/20 13:39 Last Infusion: 01/13/20 14:02 Dose: 0 mls/hr Documented by: [id number] Admin: 01/13/20 13:44 Dose: 400 mls/hr Documented by: [id number] Sodium Chloride (Nss 1000ml) 1,000 mls @ 999 mls/hr IV .Q1H1M ONE Stop: 01/13/20 14:25 Last Infusion: 01/13/20 14:45 Dose: 0 mls/hr Documented by: [id number] Admin: 01/13/20 13:44 Dose: 999 mls/hr Documented by: [id number] Ioversol (Ioversol 100ml) 94 ml IV ONCE ONE Stop: 01/13/20 14:33 Last Admin: 01/13/20 14:34 Dose: 94 ml Documented by: [id number] Discharge Plan Visit Data Chief Complaint: GI Assessment Stated Complaint: BLACK STOOLS/CRAMPING IN ABD ED Provider: Mauro Munoz Discharge Problem: Acute GI bleeding, High serum chloride, Gastric mass Forms Stand Alone Forms: [facility] Prescriptions Prescriptions: No Action turmeric 400 mg capsule 400 mg PO TID RF: 0 cholecalciferol (vitamin D3) 5,000 unit capsule 5,000 units PO DAILY RF: 0 calcium carbonate [Calcium 500] 500 mg calcium (1,250 mg) Tablet 1,000 mg PO DAILY RF: 0 magnesium oxide 500 mg Tablet 500 mg PO DAILY RF: 0 potassium gluconate 595 mg (99 mg) Tablet 595 mg PO DAILY RF: 0 Colloidal Silver 0 mg PO DAILY RF: 0 multivitamin Tablet 1 tab PO DAILY RF: 0
[2020-01-13 13:40] LABS: Albumin Level 3.6 gm/dl (3.4-5.0); BUN Creatinine Ratio 15.7 (10-20); Calcium 9.5 mg/dl (8.5-10.1); Creatinine Clr Calc Pharmacy 40.9 ml/min; Est GFR (African American) 51.9; Est GFR (Non-African American) 44.7; Potassium 3.9 mmol/L (3.5-5.1)
[2020-01-13 13:43] LABS: Albumin Globulin Ratio 1.2 (0.9-2); Bilirubin,Total 0.3 mg/dl (0.2-1); Total Protein 6.6 gm/dl (6.4-8.2)
[2020-01-13] MEDS: PANTOprazole 40 MG in DEXTROSE 5% 100 ML IV SCH ×2 (14:05→19:41)
[2020-01-13 14:15] LABS: Partial Thromboplastin Ratio 0.9; Partial Thromboplastin Time 25.8 Seconds (21.0-31.0); Prothrombin Time 10.8 Seconds (9.0-12.0)
[2020-01-13] MEDS ORDERED: IOVERSOL 100ml IV ONE (14:32)
--- NOTE | 2020-01-13 14:56 | CT Scan Report ---
CT OF THE ABDOMEN AND PELVIS WITH CONTRAST CLINICAL HISTORY: Right lower quadrant abdominal pain. GI bleed. COMPARISON STUDY: CT of the abdomen and pelvis December 03, 2016. TECHNIQUE: Following IV administration of 94 mL of Optiray-320, axial images of the abdomen and pelvi s were obtained from the lung bases to the proximal femurs. Images were reviewed in the axial, sagitt al, and coronal planes. IV contrast was administered without complication. Automated exposure contro l was utilized for the study. A dose lowering technique was utilized adhering to the principles of A ANABELL. CT DOSE: 926.13 mGy.cm FINDINGS: Lung bases are unremarkable. No pneumatosis, free air or portal venous gas is present. The common bile duct is stable following cholecystectomy. There is no peripancreatic infiltration. The sp yaya, adrenal glands and pancreas are unremarkable. There is a diverticulum of the second portion of the duodenum. Bilateral renal parapelvic cysts are noted. A subcentimeter hypodense right renal lesio n is too small to characterize but favors a cyst. There is no evidence for a bowel obstruction. The a ppendix is normal. There is colonic diverticulosis without evidence for acute diverticulitis. Note is made of a suspected 3.6 cm lesion within the gastric fundus shown on axial image 126 of 486. No abdo jai or pelvic lymphadenopathy is present. There are fat-containing bilateral inguinal hernias. No s uspicious osseous lesions are noted. There is no ascites. There is no abscess within the abdomen or p yuliana. Major vasculature is patent. IMPRESSION: 1. 3.6 cm lesion within the gastric fundus. This could reflect a submucosal lesion such as a GI angela al tumor. However, other masses could appear similar. GI consultation for consideration for endoscopy /endoscopic ultrasound is recommended. 2. No acute process within the abdomen or pelvis. Normal appendix. 3. Colonic diverticulosis without evidence for acute diverticulitis. ACT 112: Negative or not required by law. Electronically signed by: Rony Becerril M.D. 01/13/2020 2:55 PM
--- NOTE | 2020-01-13 16:14 | Consultation Report ---
DATE OF CONSULTATION: 01/13/2020 GASTROINTESTINAL CONSULT NOTE REASON FOR EVALUATION: Melena and an abnormal CT scan of the stomach. HISTORY OF PRESENT ILLNESS: The patient is a 79-year-old who presented to the Emergency Room today with a 3-day history of black tarry stools. She has had 1-2 stools per day. She is not taking any aspirin or nonsteroidals or blood thinners. She did feel a little bit tired. Her CT scan performed in the ER shows a 3.6 cm lesion in the fundus of the stomach of unclear etiology. She reports no significant abdominal pain other than in the right lower quadrant. She does have a history of diverticulosis in the past. Her last colonoscopy was more than 5 years ago. She does not remember when her last EGD was. She has no loss of appetite. No weight loss. She has been started on IV Protonix. PAST MEDICAL HISTORY: Remarkable for heart murmur, hyperparathyroidism. She has had a pulmonary embolism and cholecystectomy. HOME MEDICATIONS: Turmeric, multiple vitamin, vitamin D, calcium and MiraLax. ALLERGIES: PENICILLIN, TETRACYCLINE, CLARITHROMYCIN, METRONIDAZOLE, AMPICILLIN AND FLAGYL. FAMILY HISTORY: Grandmother had a heart attack. SOCIAL HISTORY: The patient is , lives with her , does not smoke, does not drink. REVIEW OF SYSTEMS: Positive for transient loss of vision in one eye. PHYSICAL EXAMINATION: GENERAL: The patient appears in no acute distress. VITAL SIGNS: Normal. She is afebrile. ABDOMEN: Shows laparoscopic cholecystectomy scars. There is some mild tenderness in the right lower quadrant. No mass or rebound. Liver is not enlarged. RECTAL: Per the ER doctor shows heme-positive black stool. LABORATORY DATA: Shows hemoglobin of 12.5, hematocrit of 38.1. MCV is normal at 90.7. IMPRESSION AND PLAN: The patient appears to be having a rather acute gastrointestinal bleed, probably from an upper gastrointestinal source, most likely from the lesion seen in the upper part of the stomach. I have recommended continuing the Protonix and keep her n.p.o. after midnight. We will schedule an EGD for tomorrow afternoon. In the meantime, because of this episode of amaurosis, plan on checking a carotid ultrasound to make sure she is not having either emboli to the brain, narrow carotid or a blockage.
--- NOTE | 2020-01-13 16:28 | History & Physical Report ---
Date of Service January 13, 2020 Assessment & Plan (1) UGIB (upper gastrointestinal bleed): * Patient with black/tarry stools for the past 3 days. * CT of abdomen/pelvis demonstrates 3.6 cm lesion in the fundus of the stomach. * Continue Protonix drip. * Trend H&H. * Transfuse if needed. * Plan for upper endoscopy tomorrow per GI recommendations. * Hold on anticoagulation secondary to current bleeding issues. (2) Gastric lesion: * Plan for upper endoscopy per GI assessment. (3) Visual disturbance of one eye: * In conversation with the patient, she experienced visual scotoma of the RIGHT sided eye. She did not lose complete vision. This lasted for a few seconds and then completely resolved. Shortly after, she developed a mild headache. * With lack of symptoms at this time, imaging of the brain is not necessary at this point. * Patient may have experienced atypical migraine type headache. * Patient undergo bilateral carotid ultrasounds per GI recommendations. This will suffice at this point. (4) Black stools: * Secondary to UGIB. * Continue Protonix drip Admission and Anticipated Discharge Date Admission Date: 01/13/2020 History of Present Illness Primary Care Provider: MIGUEL Mei Patient is a 79-year-old female with a significant past medical history of hypertension, depression, anxiety, irritable bowel syndrome, and fibromyalgia. Patient reports that she takes only herbal medications for her underlying medical conditions. 3 days ago, the patient noticed black/tarry stools. They have persisted for the past few days. She does report that she has had not much of an appetite over the last few days as well. She also reports some pain to the RIGHT side of lower abdomen which she describes as cramping in nature. She has never experienced these symptoms in the past. She denies any smoking history. She rates her current discomfort as a 3/10. Patient denies any headaches, dizziness, lightheadedness, chest pain, palpitations, shortness of breath, nausea, vomiting, or bright red blood per rectum. In the emergency department, CT the abdomen pelvis was obtained which demonstrated 3.6 cm lesion in the fundus of the stomach. Patient was started on Protonix drip. GI was consulted. Patient did undergo upper endoscopy tomorrow. H&H stable at this time. Of note, the patient describes an episode 2 days ago where she lost nasal vision of the RIGHT eye when she was experiencing visual scotomas while in the computer. She reports that she did not lose complete vision of the affected eye. She reports seeing floaters at this time as well. After a few minutes, this completely resolved. Shortly afterwards, the patient described a mild headache. She is not experiencing lower headaches in the past. Allergies Allergy/AdvReac Type Severity Reaction Status Date / Time Penicillins Allergy Unknown AMPICILLIN Verified 01/13/20 14:54 tetracycline Allergy Unknown Verified 01/13/20 14:54 clarithromycin AdvReac Unknown GI UPSET Unverified 01/13/20 14:54 metronidazole AdvReac Unknown GI UPSET Unverified 01/13/20 14:54 Ampicillin CAPS Allergy Unknown Unknown Uncoded 01/13/20 14:54 Flagyl Allergy Unknown Unknown Uncoded 01/13/20 14:54 Home Medications Home Medications Medication Instructions Recorded Confirmed Type multivitamin 1 tab PO DAILY 01/29/18 01/13/20 History turmeric 400 mg capsule 400 mg PO TID cap 10/14/18 01/13/20 History cholecalciferol (vitamin D3) 125 5,000 units PO DAILY 01/09/19 01/13/20 History mcg (5,000 unit) capsule Colloidal Silver 0 mg PO DAILY 01/13/20 01/13/20 History calcium carbonate [Calcium 500] 1,000 mg PO DAILY 01/13/20 01/13/20 History magnesium oxide 500 mg PO DAILY 01/13/20 01/13/20 History potassium gluconate 595 mg PO DAILY 01/13/20 01/13/20 History Past Med/Surg History Medical History (Updated 01/13/20 @ 19:04 by Mauro Munoz DO) Epigastric pain Heart murmur Pulmonary emboli Secondary hyperparathyroidism Surgical History H/O: hysterectomy Family History Grandmother Myocardial infarction Other No pertinent family history Denies family history of Ovarian cancer Prostate cancer Breast cancer Colorectal cancer Social History Smoking Status: Never smoker Hx Alcohol Use: No Hx Substance Use: No Preferred Language: Ukrainian Communication Ability: Effective Research Dietitian Required: No Beliefs That Will Affect Care: None Current Living Situation: Spouse Other Information That Helps Us Care for You: No Feels Safe at Home: Yes Safety Concerns: Feels Safe At This Time Dental Care, Regularly: No Seatbelt Use: always Assistive Devices: Denture - Upper, Denture - Lower and Glasses Assistive Devices Comment: hearing aids at home Review of Systems Review of Systems: A complete 10 point review of systems was reviewed with the patient with pertinent positives and negatives as per history of present ill ness. All else were negative. Physical Exam Physical Exam: VITAL SIGNS - Vital signs and nursing notes were reviewed. GENERAL - 79-year-old female appearing her stated age who is in no acute distress. Communicates well with provider and answers questions appropriately. HEAD - NC/AT. EYES - PERRL with EOMI bilaterally. Sclera anicteric. Palpebral conjunctiva pink and moist with no injection noted. EARS - No deformities of external structures noted on gross examination bilaterally. NOSE - Midline and without cyanosis. No epistaxis or purulent drainage noted. MOUTH/OROPHARYNX - Without perioral cyanosis. Buccal mucosa pink and moist and without leukoplakia. NECK - Neck with FROM. No nuchal rigidity. LUNGS - Chest wall symmetric without accessory muscle use, intercostals retractions, or central cyanosis. Normal vesicular breath sounds CTA B/L. No wheezes, rales, or rhonchi appreciated. CARDIAC - RRR with S1/S2. No murmur, rubs, or gallops appreciated. ABDOMEN - Abdominal contour obese without pulsations or visible masses. Negative Homeland's or Ru[place]'s Signs. BS normoactive all four quadrants. Mild tenderness to palpation appreciated in the RIGHT lower quadrant. No guarding. No Rebound Tenderness. Negative Vovsing's. Negative Nelson's. No palpable masses, hepatosplenomegaly, or ascites noted. EXTREMITIES - No clubbing or peripheral cyanosis. No pretibial edema present. +3/5 radial and dorsalis pedis pulses palpated throughout. +5/5 strength noted in UE/LE bilaterally. NEUROLOGIC - Cranial nerves II through XII grossly intact. Sensory intact to light touch throughout. PSYCH - A&Ox3 and cooperates fully with examiner. Pt is very pleasant and interacts well with examiner. Results & Data Results & Data ([facility]) Vital Signs (Past 12 Hours) Vital Signs Temp Pulse Resp BP Pulse Ox 01/13/20 15:00 62 19 132/73 98 01/13/20 14:49 70 17 121/84 99 01/13/20 14:00 67 16 114/77 96 01/13/20 13:45 74 24 96 01/13/20 13:40 73 21 137/79 97 01/13/20 13:28 97 01/13/20 12:36 36.7 C 94 H 20 146/81 H 97 Supervising Physician Co-Signing Physician Notes I personally saw and examined the patient. I verified all jefferson points and agree with BLAIRE Lopez with the following exceptions and/or additions: 79 year old female with melena but stable hemoglobin. Concerning CT for GI stromal tumor. ROS: Left homonymous hemianopia described by patient occurring 2 days ago, lasted for 3 minutes although she finds it hard to say it was both her eyes (keeps saying she had right eye vision loss) from her description she had complete vision loss of the left hand side with both eyes open. No prior history of migraines to suggest this is a cause as above. She has additional episodes of blurring, prism vision in both eyes which is not one sided. No extremity weakness or change in sensation, change in speech O/E Abdomen SNT, BS normal. No focal extremity weakness or sensory loss, CN 2 - > 12 intact A/P UGI bleed - as above, EGD planned for tomorrow. Transient left homonymous hemianopia - MRI brain w/wo IV contrast, this is not urgent and EGD should take priority. Carotid US ordered by GI. Monitor on telemetry for a. fib. Consider neurology consult although given very transient nature and occurred 2 days previously I do not feel she needs a complete workup at this time. PG Care Time/CCT Total # of Minutes Spent Total Time Spent with Patient: Total time spent is greater than 50% in coordination of care (as documented) at patient's floor/unit and/or counseling patient: Coding Level of Care Code 61058 Initial Inpt Care Lvl 3 Diagnoses UGIB (upper gastrointestinal bleed) K92.2 Gastric lesion K31.9 Visual disturbance of one eye H53.9 Black stools K92.1 Time Spent (min) 35
[2020-01-13] MEDS ORDERED: ONDANSETRON INJ 2 MG/ML 2 ML VIAL IV PRN (22:04)
[2020-01-13] MEDS ORDERED: SODIUM CHLORIDE 0.9% 1000ML 1,000 ML IV SCH (22:04)
[2020-01-13 22:28] LABS: Hematocrit (blood only) 37.7 % (37-47); Hemoglobin 12.5 g/dL (12.0-16.0)
[2020-01-14 02:28] LABS: Basophils # (auto) 0.04 K/uL (0-0.2); Basophils % (auto) 0.7 %; Eosinophils # (auto) 0.29 K/uL (0-0.5); Eosinophils % (auto) 4.9 %; Hematocrit (blood only) 32.7 % (37-47); Hemoglobin 10.9 g/dL (12.0-16.0); Immature Granulocytes # (auto) 0.01 K/uL (0.00-0.02); Immature Granulocytes % (auto) 0.2 %; Lymphocytes # (auto) 2.07 K/uL (1.2-3.4); Lymphocytes % (auto) 35.1 %; Mean Corpuscular Hemoglobin 30.4 pg (25-34); Mean Corpuscular Hgb Conc 33.3 g/dL (32-36); Mean Corpuscular Volume 91.3 fL (80-100); Mean Platelet Volume 9.1 fL (7.4-10.4); Monocytes # (auto) 0.65 K/uL (0.11-0.59); Neutrophils # (auto) 2.83 K/uL (1.4-6.5); Neutrophils % (auto) 48.1 %; Platelet Count 256 K/uL (130-400); RDW Coefficient of Variation 13.7 % (11.5-14.5); RDW Standard Deviation 45.4 fL (36.4-46.3); Red Blood Count 3.58 M/uL (4.2-5.4); White Blood Count 5.89 K/uL (4.8-10.8)
[2020-01-14 02:44] LABS: BUN Creatinine Ratio 14.2 (10-20); Calcium 8.6 mg/dl (8.5-10.1); Creatinine Clr Calc Pharmacy 45.8 ml/min; Est GFR (African American) 59.9; Est GFR (Non-African American) 51.7; Magnesium 2.3 mg/dl (1.8-2.4); Potassium 3.5 mmol/L (3.5-5.1)
[2020-01-14 02:45] LABS: Phosphorus 3.2 mg/dl (2.5-4.9)
[2020-01-14] MEDS: PANTOprazole 40 MG in DEXTROSE 5% 100 ML IV SCH ×3 (03:15→13:18)
[2020-01-14 06:29] LABS: Hematocrit (blood only) 33.5 % (37-47); Hemoglobin 11.3 g/dL (12.0-16.0)
--- NOTE | 2020-01-14 07:08 | Ultrasound Report ---
ULTRASOUND OF THE CAROTID ARTERIES CLINICAL HISTORY: amaurosis COMPARISON STUDY: CT angiography performed September 2017 TECHNIQUE: Real-time, grayscale, and color Doppler sonography of the carotid arteries was performed. Imaging reviewed in the transverse and longitudinal planes. NASCET criteria was utilized for stenosis calcification. FINDINGS: There is minimal atherosclerotic plaque present . The peak systolic velocity within the right internal carotid artery is 50 cm/sec. The systolic velocity ratio of right internal to common carotid artery is 0.7. The peak systolic velocity within the left internal carotid artery is 65 cm/sec. The systolic velocity ratio left internal to common carotid artery is 1.1. Antegrade flow is seen in the vertebral arteries. The external carotid arteries are patent. Blood pressure in the right arm measured 147 mm/Hg. Blood pressure in the left arm measured 134 mm/H g. IMPRESSION: No evidence of hemodynamically significant carotid stenosis. ACT 112: Negative or not required by law. Electronically signed by: Gustavo Doshi M.D. 01/14/2020 7:07 AM
--- NOTE | 2020-01-14 07:46 | Hospitalist Progress Note ---
Date of Service January 14, 2020 Assessment & Plan (1) UGIB (upper gastrointestinal bleed): related to 3.6cm lesion of gastric fundus GI scoped today and visualized stigmata of recent bleeding on mass Cont PPI, sucralfate Hx of PE but not on anticoag, no aspirin ingestion, no NSAIDs, INR 1 (2) Anemia: Hg 11.3, normal MCV Hg 13.8 (-2019) monitor daily CBC (3) Gastric lesion: no specimen was collected during EGD defer to GI for biopsy and further recs regarding mass (4) Visual disturbance of one eye: resolved bilateral carotid dopplers without stenosis MRI without acute process (5) DVT prophylaxis: npo holding lovenox 2' to active bleeding full code Admission and Anticipated Discharge Date Admission Date: January 13, 2020 Subjective Patient hasn't had any more melena today -- had three days leading up to hospitalization. No nausea, no vomiting. Endorsed headache. Asking for tylenol. Denies sob, cough, fevers. No history of GI bleeding. No NSAID use. Does endorse history of GERD. Going for EGD today. Review of Systems Constitutional: no fever, no chills, no fatigue, no weakness, no anorexia, no weight loss and no weight gain Ear, Nose, Mouth, Throat: no nasal congestion, no sore throat and no dysphagia Respiratory: no cough and no dyspnea Cardiovascular: no chest pain, no dyspnea on exertion, no orthopnea and no palpitations Gastrointestinal: no abdominal pain, no nausea, no vomiting, no hematemesis, no dysphagia, no constipation, no diarrhea/loose stools, no blood in stools and no melena Genitourinary: no dysuria, no urinary frequency, no hematuria and no flank pain Musculoskeletal: no back pain, no joint pain, no myalgia and no muscle weakness Integumentary: no rash, no lesions, no skin ulcer, no erythema, no dry skin and no pruritus Neurologic: + headache(s); no falls, no localized weakness, no generalized weakness, no numbness, no paresthesia and no tremor(s) Psychiatric: no depression, no suicidal ideation, no homicidal ideation and no anxiety Endocrine: no cold intolerance and no heat intolerance Hematologic / Lymphatic: no easy bleeding and no easy bruising Physical Exam Constitutional: well developed and well nourished; no acute distress Eyes: PERRL, conjunctivae normal, anicteric sclerae ENMT: Mouth: oral mucous membranes not dry Respiratory: normal respiratory effort; no respiratory distress and no labored breathing Auscultation: lungs clear to auscultation bilaterally; no crackles, no rales, no rhonchi and no wheezes Cardiovascular: Rate/Rhythm: regular rate and regular rhythm Heart Sounds: no murmur and no cardiac rub Vessels: normal peripheral pulses and radial pulses present; no JVD Extremities: no edema Gastrointestinal (Abdomen): Inspection/Auscultation: abdomen normal to inspection and normal bowel sounds; abdomen not distended Percussion/Palpation: abdomen soft; abdomen nontender, no guarding, abdomen not rigid and no hepatosplenomegaly Musculoskeletal: Head/Neck/Chest: normocephalic and head atraumatic Spine: no cervical spinal tenderness, no cervical muscular tenderness, no thoracic spinal tenderness and no lumbar spinal tenderness Skin: no rashes, warm and dry Neurologic: CN's II-XI intact bilaterally and moves all extremities Motor/Sensory: no tremor and no sensory deficit Psychiatric: Orientation: alert, oriented to person, oriented to place and oriented to time Apperance: appropriately groomed; not disheveled Affect: euthymic affect; no anxious affect and no tearful affect Genitourinary: no CVA tenderness no Wei catheter Results & Data Results & Data ([facility]) Vital Signs (Past 12 Hours) Vital Signs Temp Pulse Pulse Resp BP BP Pulse Ox 01/14/20 07:12 69 01/13/20 23:15 36.9 C 61 20 133/80 93 01/13/20 22:20 77 01/13/20 22:13 36.7 C 83 16 165/91 H 98 01/13/20 20:30 63 18 132/70 01/13/20 20:00 75 18 127/69 Laboratory Results Abnormal lab results 01/14/20 01/14/20 01/14/20 Range/Units 02:17 02:17 06:05 RBC 3.58 L (4.2-5.4) M/uL Hgb 10.9 L 11.3 L (12.0-16.0) g/dL Hct 32.7 L 33.5 L (37-47) % [place] # (Auto) 0.65 H (0.11-0.59) K/uL Chloride 113 H (98-107) mmol/L 01/14/20 Range/Units 10:13 RBC (4.2-5.4) M/uL Hgb 11.3 L (12.0-16.0) g/dL Hct 34.1 L (37-47) % [place] # (Auto) (0.11-0.59) K/uL Chloride (98-107) mmol/L Medications Administered Current Inpatient Medications Sodium Chloride (1/2 Nss) 1,000 mls @ 80 mls/hr IV .[id number] LINH Stop: 02/13/20 06:59 Last Admin: 01/14/20 07:52 Dose: 80 mls/hr Documented by: Ondansetron HCl (Ondansetron Inj 2 Mg/Ml 2 Ml Vial) 4 mg IV Q6H PRN PRN Reason: Nausea Stop: 02/12/20 22:03 Pantoprazole Sodium (Pantoprazole 40 Mg Tab) 40 mg PO BID [facility] Stop: 02/13/20 20:59 Sucralfate (Sucralfate 1 Gm Tab) 1 gm PO QID LINH Stop: 02/13/20 16:59 Last Admin: 01/14/20 16:51 Dose: 1 gm Documented by: PG Care Time/CCT Total # of Minutes Spent Total Time Spent with Patient: Total time spent is greater than 50% in coordination of care (as documented) at patient's floor/unit and/or counseling patient: Coding Level of Care Code 85073 Subseq Hosp Care Lvl 3 Diagnoses UGIB (upper gastrointestinal bleed) K92.2 Anemia D62 Anemia type: other cause Other causes of anemia: acute posthemorrhagic Gastric lesion K31.9 Visual disturbance of one eye H53.9 DVT prophylaxis Z29.9 (1) Anemia Anemia type: other cause Other causes of anemia: acute posthemorrhagic Qualified Code(s): D62 - Acute posthemorrhagic anemia
[2020-01-14] MEDS: SODIUM CHLORIDE 0.45 % 1,000 ML IV SCH ×2 (07:52→23:11)
--- NOTE | 2020-01-14 08:09 | Gastroenterology Progress Note ---
Date of Service January 14, 2020 Assessment & Plan (1) Acute GI bleeding: (2) Gastric mass: Continue NPO, IVFs, and Protonix drip. Hgb 11.3, Hct 33.5 this morning. Plan is EGD today. Please refer to supervising physician addendum for further recommendations. Admission and Anticipated Discharge Date Admission Date: January 13, 2020 Supervising Physician Co-Signing Physician Notes I have seen and examined the patient. I agree with note above by MIGUEL Hathaway except as noted below. HPI Melena and some upper abd pain. PE Abdomen pos bs, soft, no guarding nor rebound A/P GI bleed mass in funduos on CT---EGD today. Subjective Patient awake and sitting at her bedside performing ADLs this morning. Denies complaints. Denies abdominal pain, nausea, or vomiting. States she has had no bowel movement since time of admission. Review of Systems Review of Systems: All systems reviewed & are unremarkable except as noted in Subjective Physical Exam Constitutional: WD/WN, vitals as above Eyes: no eyelid abnormality and no conjunctival abnormality wears corrective lenses ENMT: Ears: no external ear abnormality Nose: no external nose abnormality Neck: normal visual inspection and trachea midline Respiratory: normal respiratory effort, lungs clear to auscultation Cardiovascular: RRR, no murmur, no edema Gastrointestinal (Abdomen): normal bowel sounds, soft, nontender, no hepatosplenomegaly Musculoskeletal: Extremities: extremities normal to inspection Skin: no rashes, warm and dry Neurologic: PERRL, EOMI, accommodation nl, no face palsy, no dysarthria Psychiatric: A+Ox3, euthymic affect Results & Data ([facility]) Vital Signs (Past 12 Hours) Vital Signs Temp Pulse Pulse Resp BP BP Pulse Ox 01/14/20 08:06 37.0 C 70 18 122/74 96 01/14/20 07:12 69 01/13/20 23:15 36.9 C 61 20 133/80 93 01/13/20 22:20 77 01/13/20 22:13 36.7 C 83 16 165/91 H 98 01/13/20 20:30 63 18 132/70 Laboratory Results - last 24 hr 01/13/20 01/13/20 01/13/20 13:11 13:11 13:11 WBC 6.59 RBC 4.20 Hgb 12.5 Hct 38.1 MCV 90.7 MCH 29.8 MCHC 32.8 RDW Std Deviation 44.9 RDW Coeff of Arleen 13.7 Plt Count 289 MPV 9.5 Immature Gran % (Auto) 0.2 Neut % (Auto) 62.3 Lymph % (Auto) 25.0 [place] % (Auto) 9.7 Eos % (Auto) 2.0 Baso % (Auto) 0.8 Neut # (Auto) 4.11 Lymph # (Auto) 1.65 [place] # (Auto) 0.64 H Eos # (Auto) 0.13 Baso # (Auto) 0.05 Immature Gran # (Auto) 0.01 PT 10.8 INR 1.0 APTT 25.8 PTT Ratio 0.9 Sodium 141 Potassium 3.9 Chloride 110 H Carbon Dioxide 27 Anion Gap 4.0 BUN 18 Creatinine 1.16 Est Cr Clr Drug Dosing 40.9 Est GFR ( Amer) 51.9 Est GFR (Non-Af Amer) 44.7 BUN/Creatinine Ratio 15.7 Glucose 112 H Calcium 9.5 Phosphorus Magnesium Total Bilirubin 0.3 AST 22 ALT 22 Alkaline Phosphatase 69 Troponin I Total Protein 6.6 Albumin 3.6 Globulin 3.0 Albumin/Globulin Ratio 1.2 Lipase 154 POC Stool Occult Blood COVID-19 Eval Order SARS-CoV-2, RNA, NAAT Blood Type Antibody Screen 01/13/20 01/13/20 01/13/20 13:52 13:52 22:16 WBC RBC Hgb 12.5 Hct 37.7 MCV MCH MCHC RDW Std Deviation RDW Coeff of Arleen Plt Count MPV Immature Gran % (Auto) Neut % (Auto) Lymph % (Auto) [place] % (Auto) Eos % (Auto) Baso % (Auto) Neut # (Auto) Lymph # (Auto) [place] # (Auto) Eos # (Auto) Baso # (Auto) Immature Gran # (Auto) PT INR APTT PTT Ratio Sodium Potassium Chloride Carbon Dioxide Anion Gap BUN Creatinine Est Cr Clr Drug Dosing Est GFR ( Amer) Est GFR (Non-Af Amer) BUN/Creatinine Ratio Glucose Calcium Phosphorus Magnesium Total Bilirubin AST ALT Alkaline Phosphatase Troponin I < 0.015 Total Protein Albumin Globulin Albumin/Globulin Ratio Lipase POC Stool Occult Blood COVID-19 Eval Order SARS-CoV-2, RNA, NAAT Blood Type A Positive Antibody Screen NEGATIVE 01/13/20 01/13/20 01/13/20 22:30 22:30 Unknown WBC RBC Hgb Hct MCV MCH MCHC RDW Std Deviation RDW Coeff of Arleen Plt Count MPV Immature Gran % (Auto) Neut % (Auto) Lymph % (Auto) [place] % (Auto) Eos % (Auto) Baso % (Auto) Neut # (Auto) Lymph # (Auto) [place] # (Auto) Eos # (Auto) Baso # (Auto) Immature Gran # (Auto) PT INR APTT PTT Ratio Sodium Potassium Chloride Carbon Dioxide Anion Gap BUN Creatinine Est Cr Clr Drug Dosing Est GFR ( Amer) Est GFR (Non-Af Amer) BUN/Creatinine Ratio Glucose Calcium Phosphorus Magnesium Total Bilirubin AST ALT Alkaline Phosphatase Troponin I Total Protein Albumin Globulin Albumin/Globulin Ratio Lipase POC Stool Occult Blood Positive A COVID-19 Eval Order Covid19 IDNow atMILC SARS-CoV-2, RNA, NAAT NEGATIVE Blood Type Antibody Screen 01/14/20 01/14/20 01/14/20 02:17 02:17 06:05 WBC 5.89 RBC 3.58 L Hgb 10.9 L 11.3 L Hct 32.7 L 33.5 L MCV 91.3 MCH 30.4 MCHC 33.3 RDW Std Deviation 45.4 RDW Coeff of Arleen 13.7 Plt Count 256 MPV 9.1 Immature Gran % (Auto) 0.2 Neut % (Auto) 48.1 Lymph % (Auto) 35.1 [place] % (Auto) 11.0 Eos % (Auto) 4.9 Baso % (Auto) 0.7 Neut # (Auto) 2.83 Lymph # (Auto) 2.07 [place] # (Auto) 0.65 H Eos # (Auto) 0.29 Baso # (Auto) 0.04 Immature Gran # (Auto) 0.01 PT INR APTT PTT Ratio Sodium 143 Potassium 3.5 Chloride 113 H Carbon Dioxide 26 Anion Gap 4.0 BUN 15 Creatinine 1.03 Est Cr Clr Drug Dosing 45.8 Est GFR ( Amer) 59.9 Est GFR (Non-Af Amer) 51.7 BUN/Creatinine Ratio 14.2 Glucose 89 Calcium 8.6 Phosphorus 3.2 Magnesium 2.3 Total Bilirubin AST ALT Alkaline Phosphatase Troponin I Total Protein Albumin Globulin Albumin/Globulin Ratio Lipase POC Stool Occult Blood COVID-19 Eval Order SARS-CoV-2, RNA, NAAT Blood Type Antibody Screen 01/13/2020: CT A/P with IV contrast demonstrated 1. 3.6 cm lesion within the gastric fundus. This could reflect a submucosal lesion such as a GI stromal tumor. However, other masses could appear similar. GI consultation for consideration for endoscopy/endoscopic ultrasound is recommended. 2. No acute process within the abdomen or pelvis. Normal appendix. 3. Colonic diverticulosis without evidence for acute diverticulitis. 01/13/2020: Carotid ultrasound obtained due to episode of amaurosis demonstrated No evidence of hemodynamically significant carotid stenosis.
[2020-01-14] MEDS ORDERED: GADOBUTROL 65ML VIAL IV ONE (09:17)
--- NOTE | 2020-01-14 09:26 | Magnetic Resonance Report ---
MRI OF THE BRAIN WITHOUT AND WITH IV CONTRAST CLINICAL HISTORY: Left homonymous hemianopia HEADACHE COMPARISON STUDY: September 2017 TECHNIQUE: MRI of the brain was performed from the vertex to the skull base utilizing various T1 and T2 weighted sequences. Following the IV administration of 8.5 mL of Gadavist contrast, additional enh anced images were obtained. FINDINGS: Sagittal T1, axial diffusion, proton density and T2 weighted axial, coronal FLAIR, and pre and post a xial T1-weighted images were acquired. These were supplemented with post gadolinium coronal T1 weight ed images. No intra or extra-axial mass lesions are visualized. Axial diffusion-weighted images reveal no evidence of acute or subacute infarction. There is no evidence of ventricular dilatation. Proton density T2-weighted and FLAIR images reveal scattered foci of increased T2 signal within the w jillian matter, likely on a small vessel basis. There are no abnormal flow voids. There is no evidence of pathologic enhancement. There is a stable 15 mm focus of decreased marrow signal within the parietal calvarial vertex IMPRESSION: 1. No acute intracranial findings 2. No evidence of acute or subacute infarction 3. No evidence of intracranial mass ACT 112: Negative or not required by law. Electronically signed by: Gustavo Doshi M.D. 01/14/2020 9:24 AM
[2020-01-14 10:19] LABS: Hematocrit (blood only) 34.1 % (37-47); Hemoglobin 11.3 g/dL (12.0-16.0)
[2020-01-14 14:18] LABS: Hematocrit (blood only) 37.9 % (37-47); Hemoglobin 12.2 g/dL (12.0-16.0)
--- NOTE | 2020-01-14 14:35 | Anesthesiology Consultation ---
Date of Service January 14, 2020 Assessment & Plan (1) Encounter for pre-operative examination: Chart Review Chart Review: Acceptable Risk for Surgery and Patient NOT seen in Pre Admission Testing Consults Requested none ASA ASA3 Proposed Anesthesia Anesthesia Type: MAC Risk / Benefits Reviewed With: PT / POA / Parent / Guardian, Accepts Plan and In formed Consent Obtained History Surgery Operation Date: 01/14/20 16:45 Proposed Procedures p Esophagogastroduodenoscopy Dr Hendrix - Brendon Hendrix Height/Weight Height: 5 ft 3 in Weight: 85 kg Allergies Allergy/AdvReac Type Severity Reaction Status Date / Time Penicillins Allergy Unknown AMPICILLIN Verified 01/13/20 14:54 tetracycline Allergy Unknown Verified 01/13/20 14:54 clarithromycin AdvReac Unknown GI UPSET Unverified 01/13/20 14:54 metronidazole AdvReac Unknown GI UPSET Unverified 01/13/20 14:54 Ampicillin CAPS Allergy Unknown Unknown Uncoded 01/13/20 14:54 Flagyl Allergy Unknown Unknown Uncoded 01/13/20 14:54 Medications Home Medications Medication Instructions Recorded Confirmed Last Taken multivitamin 1 tab PO DAILY 01/29/18 01/13/20 Unknown turmeric 400 mg capsule 400 mg PO TID cap 10/14/18 01/13/20 Unknown cholecalciferol (vitamin D3) 125 5,000 units PO DAILY 01/09/19 01/13/20 Unknown mcg (5,000 unit) capsule Colloidal Silver 0 mg PO DAILY 01/13/20 01/13/20 Unknown calcium carbonate [Calcium 500] 1,000 mg PO DAILY 01/13/20 01/13/20 Unknown magnesium oxide 500 mg PO DAILY 01/13/20 01/13/20 Unknown potassium gluconate 595 mg PO DAILY 01/13/20 01/13/20 Unknown Active Medications Generic Name Dose Route Start Last Admin Trade Name Freq PRN Reason Stop Dose Admin Pantoprazole Sodium 40 mg/ 100 mls @ 20 mls/hr 01/13/20 13:38 01/14/20 13:18 Dextrose IV 02/12/20 13:37 8 mg/hr Q5H LINH 20 mls/hr Administration 8 MG/HR Sodium Chloride 1,000 mls @ 80 mls/hr 01/14/20 07:00 01/14/20 07:52 1/2 Nss IV 02/13/20 06:59 80 mls/hr .[id number] LINH Administration NPO Date Last Intake of Fluids: 01/13/20 Time Last Intake of Fluids: 08:00 Date Last Intake of Solids: 01/13/20 Time Last Intake of Solids: 08:00 Past Medical History Medical History (Updated 01/14/20 @ 14:34 by Shai Steward MD) Epigastric pain Heart murmur Pulmonary emboli Pulmonary embolism Secondary hyperparathyroidism Exercise / Class Metabolic Activity II 4-5 Yardwork/Stairs/Walk up hill Past Family History Family History Grandmother Myocardial infarction Other No pertinent family history Denies family history of Ovarian cancer Prostate cancer Breast cancer Colorectal cancer Past Surgical History Surgical History H/O: hysterectomy Past Anesthesia History No Hx of Anesthesia Complications and No Family Hx of Anesthesia Complications History of PONV No Hx of PONV and No Hx of Motion Sickness Social History Smoking Status: Never smoker Hx Alcohol Use: No Hx Substance Use: No Physical Exam Vital Signs Last Vital Signs Temp 36.6 C 01/14/20 14:28 Pulse 71 01/14/20 14:28 Resp 18 01/14/20 14:28 BP 142/82 H 01/14/20 14:28 Pulse Ox 99 01/14/20 14:28 ENMT Mouth: no dentition abnormality Thyromental Distance: > or= 3.5 Finger Breadths Mallampati Class: II Neck normal visual inspection Respiratory normal respiratory effort Auscultation: lungs clear to auscultation bilaterally Cardiovascular Rate/Rhythm: regular rate and regular rhythm Psychiatric Orientation: alert Testing Laboratory Results 01/14/20 14:04 01/14/20 02:17 PT 10.8 Seconds (9.0-12.0) 01/13/20 13:11 INR 1.0 (0.9-1.1) 01/13/20 13:11 APTT 25.8 Seconds (21.0-31.0) 01/13/20 13:11 Blood Type A Positive 01/13/20 13:52 Antibody Screen NEGATIVE 01/13/20 13:52
--- NOTE | 2020-01-14 14:40 | History & Physical Report ---
Date of Service January 14, 2020 Assessment & Plan (1) Acute GI bleeding: EGD for melena and mass in fundus of stomach on CT. Proc and risks explained to patient which include but not limited to med reaction, bleeding, perforation, and aspiration. Admission and Anticipated Discharge Date Admission Date: January 13, 2020 History of Present Illness Primary Care Provider: MIGUEL Mei cc bleeding HPI NO stools overnight or today. Minor upper abd pain. Allergies Allergy/AdvReac Type Severity Reaction Status Date / Time Penicillins Allergy Unknown AMPICILLIN Verified 01/13/20 14:54 tetracycline Allergy Unknown Verified 01/13/20 14:54 clarithromycin AdvReac Unknown GI UPSET Unverified 01/13/20 14:54 metronidazole AdvReac Unknown GI UPSET Unverified 01/13/20 14:54 Ampicillin CAPS Allergy Unknown Unknown Uncoded 01/13/20 14:54 Flagyl Allergy Unknown Unknown Uncoded 01/13/20 14:54 Home Medications Home Medications Medication Instructions Recorded Confirmed Type multivitamin 1 tab PO DAILY 01/29/18 01/13/20 History turmeric 400 mg capsule 400 mg PO TID cap 10/14/18 01/13/20 History cholecalciferol (vitamin D3) 125 5,000 units PO DAILY 01/09/19 01/13/20 History mcg (5,000 unit) capsule Colloidal Silver 0 mg PO DAILY 01/13/20 01/13/20 History calcium carbonate [Calcium 500] 1,000 mg PO DAILY 01/13/20 01/13/20 History magnesium oxide 500 mg PO DAILY 01/13/20 01/13/20 History potassium gluconate 595 mg PO DAILY 01/13/20 01/13/20 History Past Med/Surg History Medical History (Updated 01/14/20 @ 14:34 by Shai Steward MD) Epigastric pain Heart murmur Pulmonary emboli Pulmonary embolism Secondary hyperparathyroidism Surgical History H/O: hysterectomy Family History Grandmother Myocardial infarction Other No pertinent family history Denies family history of Ovarian cancer Prostate cancer Breast cancer Colorectal cancer Social History Smoking Status: Never smoker Hx Alcohol Use: No Hx Substance Use: No Preferred Language: Cypriot Communication Ability: Effective Water Safety Instructor Required: No Beliefs That Will Affect Care: None Current Living Situation: Spouse Other Information That Helps Us Care for You: No Feels Safe at Home: Yes Safety Concerns: Feels Safe At This Time Dental Care, Regularly: No Seatbelt Use: always Assistive Devices: Denture - Upper, Denture - Lower and Glasses Assistive Devices Comment: hearing aids at home Physical Exam Respiratory: normal respiratory effort, lungs clear to auscultation Cardiovascular: RRR, no murmur, no edema Gastrointestinal (Abdomen): normal bowel sounds, soft, nontender, no hepatosplenomegaly Results & Data ([facility]) Vital Signs (Past 12 Hours) Vital Signs Temp Pulse Pulse Resp BP Pulse Ox 01/14/20 14:28 36.6 C 71 18 142/82 H 99 01/14/20 12:02 36.8 C 66 18 147/83 H 95 01/14/20 08:06 37.0 C 70 18 122/74 96 01/14/20 07:12 69 Code Status & VTE Plan VTE Prophylaxis Plan VTE Prophylaxis will be ordered: No
[2020-01-14] MEDS ORDERED: LIDOCAINE HCL 2% 2 ML VIAL/AMP(20MG/ML) INFIL ONE (14:59)
[2020-01-14] MEDS ORDERED: PROPOFOL IV EMULSION 10 MG/ML 20 ML VIAL IV ONE (14:59)
--- NOTE | 2020-01-14 14:59 | Post Operative Brief Note ---
Immediate Post Op Note v1 Date of Surgery January 14, 2020 Pre & Post Diagnosis Operation Date: 01/14/20 16:45 Pre-Op Diagnosis: GIB, GASTRIC LESION Post-Op Diagnosis: bleeding lesion stomach with APC Submucosal lesion in fundus of stomach with denuded mucosa with stigmata of recent bleeding. APC used to prevent bleeding. Will need resection at some point. If no further bleeding may benefit from EUS with EMR as outpt. PPI and Carafate now. I identified the patient and participated in the time-out.: Yes Procedure Operation Date: 01/14/20 16:45 Actual Procedures p EGD Hemostasis(Not Applicable) - Brendon Hendrix Surgeon Brendon Hendrix Refrigerator Crater see report Estimated Blood Loss 2 Findings See Below
--- NOTE | 2020-01-14 15:16 | GI REPORT ---
Patient Name: Alyx Feliciano Procedure Date: 01/14/2020 2:36 PM Date of : 1940 Admit Type: Inpatient Age: 79 Gender: Female Attending MD: Brendon Hendrix MD Procedure: Upper GI endoscopy Providers: Brendon Hendrix MD Referring MD: Elida Maxwell Md Indications: Acute post hemorrhagic anemia, Melena, Abnormal CT of the GI tract (fundus mass on CT). Medicines: Monitored Anesthesia Care Complications: No immediate complications. Estimated blood loss: Minimal. Estimated Blood Loss: Estimated blood loss was minimal. Procedure: Pre-Anesthesia Assessment: - The risks and benefits of the procedure and the sedation options and risks were discussed with the patient. All questions were answered and informed consent was obtained. - Patient identification and proposed procedure were verified prior to the procedure by the physician, the nurse and the panelboard operator. The procedure was verified in the procedure room. After obtaining informed consent, the endoscope was passed under direct vision. Throughout the procedure, the patient's blood pressure, pulse, and oxygen saturations were monitored continuously. The Endoscope was introduced through the mouth, and advanced to the second part of duodenum. The upper GI endoscopy was accomplished without difficulty. The patient tolerated the procedure well. Procedure and risks explained to patient which include but not limited to medication reaction, bleeding, perforation, aspiration , and missed lesions. Judicious gas insufflation was used and gas removal done on the way out. The lumen was always visualized when advancing the scope. Prep was good. Washes and suctioning used as needed to get good visualization of the mucosa. Retroflexion to look at the fundus and cardia of the stomach and GE junction was done. Findings: The Z-line was regular and was found 38 cm from the incisors. The esophagus was normal. A large, submucosal mass with no active bleeding but stigmata of recent bleeding was found in the gastric fundus. Coagulation for bleeding prevention using argon plasma at 1.4 liters/minute and 35 doll was successful. Estimated blood loss was minimal. The examined duodenum was normal. The exam was otherwise without abnormality. Impression: - Z-line regular, 38 cm from the incisors. - Normal esophagus. - Rule out malignancy, gastric submucosal tumor in the gastric fundus. Stigmata of recent bleeding noted. Treated with argon plasma coagulation (APC). - Normal examined duodenum. - The examination was otherwise normal. - No specimens collected. Recommendation: - Return patient to [facility] for [facility] care. - PPI and carafate for now. Will need to do EUS and EMR versus surgical resection as an outpt. Brendon Hendrix M.D. Brendon Hendrix MD 01/14/2020 3:15:35 PM This report has been signed electronically. Note Initiated On: 01/14/2020 2:36 PM Number of Addenda: 0 I attest to the content of the Intraoperative Record and orders documented therein, exceptions below {[id number]}
--- NOTE | 2020-01-14 15:33 | Anesthesiology Progress Note ---
Date of Service January 14, 2020 Anesthesia Post Procedure Vital Signs Vital Signs: Temp Pulse Pulse Resp BP BP Pulse Ox 01/14/20 15:19 70 16 126/84 97 01/14/20 15:04 80 16 113/64 95 01/14/20 14:28 36.6 C 71 18 142/82 H 99 01/14/20 12:02 36.8 C 66 18 147/83 H 95 01/14/20 08:06 37.0 C 70 18 122/74 96 01/14/20 07:12 69 01/13/20 23:15 36.9 C 61 20 133/80 93 01/13/20 22:20 77 01/13/20 22:13 36.7 C 83 16 165/91 H 98 01/13/20 20:30 63 18 132/70 01/13/20 20:00 75 18 127/69 01/13/20 19:30 61 18 140/82 01/13/20 19:00 64 24 148/74 H 01/13/20 18:30 62 19 127/77 95 01/13/20 18:00 71 18 97 01/13/20 17:30 60 14 136/75 97 01/13/20 17:00 63 20 140/80 95 01/13/20 16:30 61 18 140/79 98 01/13/20 16:00 67 14 141/92 H 99 Pain Intensity Lower Abdomen: Pain Intensity: 6 Transfer of Care Handoff Completed per policy Notes Mental Status: alert / awake / arousable and participated in evaluation Patient Amnestic to Procedure: Yes Nausea / Vomiting: adequately controlled Pain: adequately controlled Airway Patency, RR, SpO2: stable & adequate BP & HR: stable & adequate Hydration State: stable & adequate Anesthetic Complications: no major complications apparent and Pt Satisfied with anesthetic care
[2020-01-14] MEDS ORDERED: ACETAMINOPHEN 10MG/ML PEDIATRIC DOSING IV ONE (15:39)
[2020-01-14] MEDS ORDERED: ACETAMINOPHEN IV ONE (16:00)
[2020-01-14] MEDS: SUCRALFATE 1 GM TAB PO SCH ×2 (16:51→21:16)
[2020-01-14 18:07] LABS: Hematocrit (blood only) 35.5 % (37-47); Hemoglobin 11.7 g/dL (12.0-16.0)
[2020-01-14] MEDS: PANTOprazole 40 MG TAB PO SCH (21:16)
[2020-01-15 06:19] LABS: Basophils # (auto) 0.03 K/uL (0-0.2); Basophils % (auto) 0.5 %; Eosinophils # (auto) 0.26 K/uL (0-0.5); Eosinophils % (auto) 4.7 %; Hematocrit (blood only) 35.6 % (37-47); Hemoglobin 11.5 g/dL (12.0-16.0); Immature Granulocytes # (auto) 0.01 K/uL (0.00-0.02); Immature Granulocytes % (auto) 0.2 %; Lymphocytes # (auto) 1.53 K/uL (1.2-3.4); Lymphocytes % (auto) 27.5 %; Mean Corpuscular Hemoglobin 29.5 pg (25-34); Mean Corpuscular Hgb Conc 32.3 g/dL (32-36); Mean Corpuscular Volume 91.3 fL (80-100); Mean Platelet Volume 9.8 fL (7.4-10.4); Monocytes % (auto) 10.8 %; Neutrophils # (auto) 3.13 K/uL (1.4-6.5); Neutrophils % (auto) 56.3 %; Platelet Count 286 K/uL (130-400); RDW Coefficient of Variation 13.7 % (11.5-14.5); RDW Standard Deviation 45.6 fL (36.4-46.3); White Blood Count 5.56 K/uL (4.8-10.8)
[2020-01-15 06:54] LABS: Albumin Globulin Ratio 1.2 (0.9-2); Albumin Level 3.1 gm/dl (3.4-5.0); BUN Creatinine Ratio 8.8 (10-20); Bilirubin,Total 0.5 mg/dl (0.2-1); Calcium 8.5 mg/dl (8.5-10.1); Est GFR (African American) 57.2; Est GFR (Non-African American) 49.3; Globulin 2.6 gm/dl (2.5-4.0); Magnesium 2.2 mg/dl (1.8-2.4); Phosphorus 2.9 mg/dl (2.5-4.9); Potassium 3.5 mmol/L (3.5-5.1); Total Protein 5.7 gm/dl (6.4-8.2)
[2020-01-15] MEDS: PANTOprazole 40 MG TAB PO SCH (08:54)
[2020-01-15] MEDS: SUCRALFATE 1 GM TAB PO SCH (08:54)
--- NOTE | 2020-01-15 08:54 | Gastroenterology Progress Note ---
Date of Service January 15, 2020 Assessment & Plan (1) Acute GI bleeding: (2) Gastric mass: EGD demonstrated a large, submucosal mass with no active bleeding but stigmata of recent bleeding was found in the gastric fundus. Coagulation for bleeding prevention using argon plasma at 1.4 liters/minute and 35 doll was successful. Patient will likely require EUS for further evaluation [place] [facility]. GI OV follow-up appointment scheduled for next week. Hgb 11.5/Hct 35.6 this morning. Reports no bowel movement since admission. Tolerating clear liquids without difficulty. Will advance diet as tolerated. Please refer to supervising physician addendum for further recommendations. Admission and Anticipated Discharge Date Admission Date: January 13, 2020 Subjective Patient awake and sitting at her bedside eating breakfast this morning. Tolerating clear liquids without difficulty. Denies complaints. Denies abdominal pain, nausea, or vomiting. States she has had no bowel movement since time of admission. Anxious for follow-up. Review of Systems Review of Systems: All systems reviewed & are unremarkable except as noted in Subjective Physical Exam Constitutional: WD/WN, vitals as above Eyes: no eyelid abnormality and no conjunctival abnormality ENMT: Ears: no external ear abnormality Nose: no external nose abnormality Neck: normal visual inspection and trachea midline Respiratory: normal respiratory effort, lungs clear to auscultation Cardiovascular: RRR, no murmur, no edema Gastrointestinal (Abdomen): normal bowel sounds, soft, nontender, no he patosplenomegaly Musculoskeletal: Extremities: extremities normal to inspection Skin: no rashes, warm and dry Neurologic: PERRL, EOMI, accommodation nl, no face palsy, no dysarthria Psychiatric: A+Ox3, euthymic affect Results & Data ([facility]) Vital Signs (Past 12 Hours) Vital Signs Temp Pulse Pulse Resp BP Pulse Ox 01/15/20 07:39 67 01/15/20 07:22 36.7 C 66 18 125/76 97 01/15/20 04:00 36.9 C 74 18 129/80 96 01/15/20 00:00 62 Laboratory Results - last 24 hr 01/14/20 01/14/20 01/14/20 10:13 14:04 17:58 WBC RBC Hgb 11.3 L 12.2 11.7 L Hct 34.1 L 37.9 35.5 L MCV MCH MCHC RDW Std Deviation RDW Coeff of Arleen Plt Count MPV Immature Gran % (Auto) Neut % (Auto) Lymph % (Auto) [place] % (Auto) Eos % (Auto) Baso % (Auto) Neut # (Auto) Lymph # (Auto) [place] # (Auto) Eos # (Auto) Baso # (Auto) Immature Gran # (Auto) Sodium Potassium Chloride Carbon Dioxide Anion Gap BUN Creatinine Est Cr Clr Drug Dosing Est GFR ( Amer) Est GFR (Non-Af Amer) BUN/Creatinine Ratio Glucose Calcium Phosphorus Magnesium Total Bilirubin AST ALT Alkaline Phosphatase Total Protein Albumin Globulin Albumin/Globulin Ratio 01/15/20 01/15/20 05:47 05:47 WBC 5.56 RBC 3.90 L Hgb 11.5 L Hct 35.6 L MCV 91.3 MCH 29.5 MCHC 32.3 RDW Std Deviation 45.6 RDW Coeff of Arleen 13.7 Plt Count 286 MPV 9.8 Immature Gran % (Auto) 0.2 Neut % (Auto) 56.3 Lymph % (Auto) 27.5 [place] % (Auto) 10.8 Eos % (Auto) 4.7 Baso % (Auto) 0.5 Neut # (Auto) 3.13 Lymph # (Auto) 1.53 [place] # (Auto) 0.60 H Eos # (Auto) 0.26 Baso # (Auto) 0.03 Immature Gran # (Auto) 0.01 Sodium 143 Potassium 3.5 Chloride 114 H Carbon Dioxide 26 Anion Gap 3.0 BUN 9 D Creatinine 1.07 Est Cr Clr Drug Dosing 44.0 Est GFR ( Amer) 57.2 Est GFR (Non-Af Amer) 49.3 BUN/Creatinine Ratio 8.8 L Glucose 86 Calcium 8.5 Phosphorus 2.9 Magnesium 2.2 Total Bilirubin 0.5 AST 29 ALT 20 Alkaline Phosphatase 61 Total Protein 5.7 L Albumin 3.1 L Globulin 2.6 Albumin/Globulin Ratio 1.2
--- NOTE | 2020-01-15 09:33 | Hospitalist Progress Note ---
Date of Service January 15, 2020 Assessment & Plan (1) Gastric lesion: no specimen was collected during EGD GI planning EUS for further eval of mass GI scheduled outpatient appointment next week (2) UGIB (upper gastrointestinal bleed): Hx of PE but not on anticoag, no aspirin ingestion, no NSAIDs, INR 1 01-12 CT a/p with 3.6cm lesion of gastric fundus 01-13 GI scoped and visualized stigmata of recent bleeding on mass. Performed coagulation with argon plasma. Post-EGD allowed clear liquids, PPI, sucralfate 01-14 tolerating clear liquids, advancing diet (3) Anemia: baseline Hg 13.8 01-13 Hg 11.3, normal MCV 01-14 Hg 11.5, stable monitor daily CBC (4) Visual disturbance of one eye: resolved bilateral carotid dopplers without stenosis MRI without acute process (5) DVT prophylaxis: npo holding lovenox 2' to active bleeding full code Admission and Anticipated Discharge Date Admission Date: January 13, 2020 Subjective Patient feels well, tolerating liquids this morning. Tolerated solids with lunch. Eager to go home. Denies melena, nausea, vomiting. No abd pain, no headache. Denies dizziness and sob. Review of Systems Constitutional: no fever, no chills, no fatigue, no weakness, no anorexia, no weight loss and no weight gain Ear, Nose, Mouth, Throat: no nasal congestion, no sore throat and no dysphagia Respiratory: no cough and no dyspnea Cardiovascular: no chest pain, no dyspnea on exertion, no orthopnea and no palpitations Gastrointestinal: no abdominal pain, no nausea, no vomiting, no hematemesis, no dysphagia, no constipation, no diarrhea/loose stools, no blood in stools and no melena Genitourinary: no dysuria, no urinary frequency, no hematuria and no flank pain Musculoskeletal: no back pain, no joint pain, no myalgia and no muscle weakness Integumentary: no rash, no lesions, no skin ulcer, no erythema, no dry skin and no pruritus Neurologic: no falls, no localized weakness, no generalized weakness, no numbness, no paresthesia, no tremor(s) and no headache(s) Psychiatric: no depression, no suicidal ideation, no homicidal ideation and no anxiety Endocrine: no cold intolerance and no heat intolerance Hematologic / Lymphatic: no easy bleeding and no easy bruising Physical Exam Constitutional: well developed and well nourished; no acute distress Eyes: PERRL, conjunctivae normal, anicteric sclerae ENMT: Mouth: oral mucous membranes not dry Respiratory: normal respiratory effort; no respiratory distress and no labored breathing Auscultation: lungs clear to auscultation bilaterally; no crackles, no rales, no rhonchi and no wheezes Cardiovascular: Rate/Rhythm: regular rate and regular rhythm Heart Sounds: no murmur and no cardiac rub Vessels: normal peripheral pulses and radial pulses present; no JVD Extremities: no edema Gastrointestinal (Abdomen): Inspection/Auscultation: abdomen normal to inspection and normal bowel sounds; abdomen not distended Percussion/Palpation: abdomen soft; abdomen nontender, no guarding, abdomen not rigid and no hepatosplenomegaly Musculoskeletal: Head/Neck/Chest: normocephalic and head atraumatic Spine: no cervical spinal tenderness, no cervical muscular tenderness, no thoracic spinal tenderness and no lumbar spinal tenderness Skin: no rashes, warm and dry Neurologic: CN's II-XI intact bilaterally and moves all extremities Motor/Sensory: no tremor and no sensory deficit Psychiatric: Orientation: alert, oriented to person, oriented to place and oriented to time Apperance: appropriately groomed; not disheveled Affect: euthymic affect; no anxious affect and no tearful affect Genitourinary: no CVA tenderness Results & Data Results & Data ([facility]) Vital Signs (Past 12 Hours) Vital Signs Temp Pulse Pulse Resp BP Pulse Ox 01/15/20 07:39 67 01/15/20 07:22 36.7 C 66 18 125/76 97 01/15/20 04:00 36.9 C 74 18 129/80 96 01/15/20 00:00 62 Laboratory Results Abnormal lab results 01/14/20 01/15/20 01/15/20 Range/Units 17:58 05:47 05:47 RBC 3.90 L (4.2-5.4) M/uL Hgb 11.7 L 11.5 L (12.0-16.0) g/dL Hct 35.5 L 35.6 L (37-47) % [place] # (Auto) 0.60 H (0.11-0.59) K/uL Chloride 114 H (98-107) mmol/L BUN/Creatinine Ratio 8.8 L (10-20) Total Protein 5.7 L (6.4-8.2) gm/dl Albumin 3.1 L (3.4-5.0) gm/dl PG Care Time/CCT Total # of Minutes Spent Total Time Spent with Patient: Total time spent is greater than 50% in coordination of care (as documented) at patient's floor/unit and/or counseling patient: Coding Level of Care Code 86565 Subseq Hosp Care Lvl 3 Diagnoses Gastric lesion K31.9 UGIB (upper gastrointestinal bleed) K92.2 Anemia D62 Anemia type: other cause Other causes of anemia: acute posthemorrhagic Visual disturbance of one eye H53.9 DVT prophylaxis Z29.9 (1) Anemia Anemia type: other cause Other causes of anemia: acute posthemorrhagic Qualified Code(s): D62 - Acute posthemorrhagic anemia
--- NOTE | 2020-01-15 14:18 | Discharge Summary ---
Date of Service January 15, 2020 Admission HPI Per Admitting Provider cc bleeding HPI NO stools overnight or today. Minor upper abd pain. Principal Diagnosis Upper GI bleed related to gastric mass Discharge Exam Constitutional well developed and well nourished; no acute distress Eyes PERRL, conjunctivae normal, anicteric sclerae ENMT Mouth: oral mucous membranes not dry Respiratory normal respiratory effort; no respiratory distress and no labored breathing Auscultation: lungs clear to auscultation bilaterally; no crackles, no rales, no rhonchi and no wheezes Cardiovascular Rate/Rhythm: regular rate and regular rhythm Heart Sounds: no murmur and no cardiac rub Vessels: normal peripheral pulses and radial pulses present; no JVD Extremities: no edema Gastrointestinal (Abdomen) Inspection/Auscultation: abdomen normal to inspection and normal bowel sounds; abdomen not distended Percussion/Palpation: abdomen soft; abdomen nontender, no guarding, abdomen not rigid and no hepatosplenomegaly Musculoskeletal Head/Neck/Chest: normocephalic and head atraumatic Spine: no cervical spinal tenderness, no cervical muscular tenderness, no thoracic spinal tenderness and no lumbar spinal tenderness Skin no rashes, warm and dry Neurologic CN's II-XI intact bilaterally and moves all extremities Motor/Sensory: no tremor and no sensory deficit Psychiatric Orientation: alert, oriented to person, oriented to place and oriented to time Apperance: appropriately groomed; not disheveled Affect: euthymic affect; no anxious affect and no tearful affect Genitourinary no CVA tenderness Discharge Data Allergies Allergy/AdvReac Type Severity Reaction Status Date / Time Penicillins Allergy Unknown AMPICILLIN Verified 01/13/20 14:54 tetracycline Allergy Unknown Verified 01/13/20 14:54 clarithromycin AdvReac Unknown GI UPSET Unverified 01/13/20 14:54 metronidazole AdvReac Unknown GI UPSET Unverified 01/13/20 14:54 Ampicillin CAPS Allergy Unknown Unknown Uncoded 01/13/20 14:54 Flagyl Allergy Unknown Unknown Uncoded 01/13/20 14:54 Consultations 01/13/20 14:59 ED Decision to Admit Stat Procedures Performed Operation Date: 01/14/20 16:45 Actual Procedures p EGD Hemostasis(Not Applicable) - Brendon Hendrix Ordered Studies 01/13/20 13:25 CT abd pelvis IV con only Stat 01/13/20 15:40 US carotid doppler BI Urgent 01/14/20 07:02 MR brain wo/w con Routine Hospital Course (1) Gastric lesion: no specimen was collected during EGD GI planning EUS for further eval of mass GI scheduled outpatient appointment next week (2) UGIB (upper gastrointestinal bleed): Hx of PE but not on anticoag, no aspirin ingestion, no NSAIDs, INR 1 01-12 CT a/p with 3.6cm lesion of gastric fundus 01-13 GI scoped and visualized stigmata of recent bleeding on mass. Performed coagulation with argon plasma. Post-EGD allowed clear liquids, PPI, sucralfate 01-14 tolerating clear liquids, advancing diet (3) Anemia: baseline Hg 13.8 - Hg 11.3, normal MCV 01-14 Hg 11.5, stable monitor daily CBC (4) Visual disturbance of one eye: resolved bilateral carotid dopplers without stenosis MRI without acute process (5) DVT prophylaxis: npo holding lovenox 2' to active bleeding full code Total Time Total Time Spent Total Time Spent (In Minutes): 40 Total Time Includes: Examination of the Patient, Discharge Planning, Medication Reconciliation and Communication With Other Providers Discharge Plan Discharge Items Patient Disposition: Home - Self-Care Reason For Visit: GIB, GASTRIC LESION Discharge Diagnosis: 1. gastric mass 2. melena related to upper GI bleed 3. anemia related to GI bleed 4. visual disturbance Activity: Resume your previous activity Non-emergency contact: Primary Care Provider Call non-emergency contact if: you have any medication questions and your symptoms worsen Follow-up/Referrals: Aleida Green CRNP [Primary Care Provider] - 01/19/20 2:00 pm (within 1 week for repeat CBC) Brendon Hendrix [Physician] - (Your appointment for next week that was already scheduled) Diet: Regular Addtl Attending Provider Instructions: 1. Start taking pantoprazole 40mg twice daily 2. Start taking sucralfate 1 gram by mouth four times daily 3. Continue these new medications until instructed by Dr. Hendrix to stop 4. See your primary care physician for further treatment of your anemia Pending Studies at Discharge: No Stand-Alone Forms: My MC10, Smoking Cessation Medications and DC Order Prescriptions: New pantoprazole 40 mg Tablet,Delayed Release (Dr/Ec) 40 mg PO BID Qty: 60 RF: 0 sucralfate 1 gram Tablet 1 g PO QID Qty: 120 RF: 0 Continued turmeric 400 mg capsule 400 mg PO TID RF: 0 cholecalciferol (vitamin D3) 5,000 unit capsule 5,000 units PO DAILY RF: 0 calcium carbonate [Calcium 500] 500 mg calcium (1,250 mg) Tablet 1,000 mg PO DAILY RF: 0 magnesium oxide 500 mg Tablet 500 mg PO DAILY RF: 0 potassium gluconate 595 mg (99 mg) Tablet 595 mg PO DAILY RF: 0 Colloidal Silver 0 mg PO DAILY RF: 0 multivitamin Tablet 1 tab PO DAILY RF: 0 Discharge Orders: Discharge Order (Routine); Ordered 01/15/20 Ordered By: Elida Barrera Admission Data Admit Date/Time: 01/13/20 17:48 Attending Provider: Elida Barrera Admit Provider: Sebastián Claros Primary Care Provider: Aleida Green Other Providers: Sebastián Claros Other Interventions: Discharge Summary Assessment (RN) Last Done: 01/15/20 11:58 Coding Level of Care Code D/C Day Management >30 mins Diagnoses Gastric lesion K31.9 UGIB (upper gastrointestinal bleed) K92.2 Anemia D62 Anemia type: other cause Other causes of anemia: acute posthemorrhagic Visual disturbance of one eye H53.9 DVT prophylaxis Z29.9
== END 2020-01-15 13:50 | disposition home or self-care (01) ==
LOC: ED 12:32 → 2N 17:48 → SUATTDRO 17:48 → INTOOBSV 17:48 → 2N 20:41

== ENCOUNTER 2023-01-28 13:52 | Observation (INO) ==
[2023-01-28] MEDS ORDERED: SODIUM CHLORIDE 0.9% 500 ML IV ONE (14:19)
[2023-01-28] MEDS ORDERED: ONDANSETRON INJ 2 MG/ML 2 ML VIAL IV STA ×2 (14:19→16:56)
[2023-01-28 14:40] LABS: iSTAT Hemoglobin 13.9 g/dl (12.0-16.0); iSTAT Ionized Calcium 1.21 mmol/l (1.12-1.32); iSTAT Potassium 3.9 mmol/L (3.3-5.0)
[2023-01-28] MEDS ORDERED: OPTIRAY 320 125ml IV ONE (14:54)
--- NOTE | 2023-01-28 15:11 | CT Scan Report ---
UNENHANCED CT OF THE BRAIN; CT ANGIOGRAM OF THE BRAIN CLINICAL HISTORY: Dizziness. COMPARISON STUDY: CT of the brain dated 08/16/2021. CT urogram of the brain dated 09/27/2017. TECHNIQUE: Unenhanced axial CT scan of the brain is performed. Subsequently, following the IV adminis tration of 115 cc of Optiray 320, CT angiogram of the brain was performed from the skull base to the vertex. Images are reviewed in the axial, sagittal, and coronal planes. 3-D MIPS images are created a nd assessed. IV contrast was administered without complication. A dose lowering technique was utiliz ed adhering to the principles of ALARA. FINDINGS: Brain parenchyma: There is age-related involutional change noting mild subcortical and periventricula r microangiopathic disease. There is no hemorrhage, mass effect, or evidence of acute territorial isc hemia by CT criteria. There is no evidence of enhancing mass lesion on the angiogram phase images. No extra-axial fluid collection is seen. Yuan-white matter differentiation is preserved. Ventricles, sulci, and cisterns: Prominent secondary to involutional change. CT angiogram of the brain: There is moderate atherosclerotic calcification of the cavernous carotid a rteries. The internal carotid arteries are widely patent, as are the anterior and middle cerebral art eries. The vertebrobasilar system and posterior cerebral arteries are widely patent. The left vertebr al artery is slightly dominant. There is no aneurysm, high-grade stenosis, or focal vessel cutoff marcelo ntified throughout the intracranial circulation. Dural sinuses: Clear as visualized. Orbits: The bony orbits are intact. The orbital contents are normal as visualized noting bilateral oc ular lens implant0. Sinuses and mastoids: The visualized paranasal sinuses are clear. The mastoid air cells are well pneu matized. Calvarium: The skeletal structures are osteopenic. The calvarium appears intact. IMPRESSION: 1. There is no hemorrhage, mass effect, or evidence of acute territorial ischemia by CT criteria. 2. Unremarkable CT angiogram of the brain. ACT 112: Negative or not required by law. Electronically signed by: Juan Martinez M.D. 01/28/2023 3:10 PM
[2023-01-28 15:15] LABS: Basophils # (auto) 0.08 K/uL (0.00-0.20); Basophils % (auto) 1.2 %; Eosinophils # (auto) 0.04 K/uL (0.00-0.50); Eosinophils % (auto) 0.6 %; Hematocrit (blood only) 42.8 % (37.0-47.0); Hemoglobin 14.1 g/dl (12.0-16.0); Immature Granulocytes # (auto) 0.02 K/uL (0.01-0.20); Immature Granulocytes % (auto) 0.3 %; Lymphocytes % (auto) 11.8 %; Mean Corpuscular Hemoglobin 29.8 pg (25.0-34.0); Mean Corpuscular Hgb Conc 32.9 g/dL (32.0-36.0); Mean Corpuscular Volume 90.5 fL (80.0-100.0); Mean Platelet Volume 9.8 fL (9.4-12.4); Monocytes % (auto) 5.9 %; Neutrophils # (auto) 5.42 K/uL (1.40-6.50); Neutrophils % (auto) 80.2 %; Platelet Count 259 K/uL (130-400); RDW Coefficient of Variation 13.3 % (11.5-14.5); RDW Standard Deviation 44.9 fL (36.4-46.3); Red Blood Count 4.73 M/uL (4.20-5.40); White Blood Count 6.76 K/ul (4.8-10.8)
[2023-01-28 15:37] LABS: BUN Creatinine Ratio 14.9 (10-20); Calcium 9.3 mg/dl (8.6-10.3); Creatinine Clr Calc Pharmacy 44.9 ml/min; Est GFR (Non-African American) 51.8 ml/min; Magnesium 2.4 mg/dl (1.7-2.4)
--- NOTE | 2023-01-28 16:02 | CT Scan Report ---
CT ANGIOGRAPHY OF THE NECK WITH CONTRAST CLINICAL HISTORY: Dizziness. COMPARISON STUDY: CTA of the neck September 27, 2017. Carotid ultrasound January 13, 2020. Technique: CT angiography of the carotid and vertebral arteries was obtained using Optiray and 3D rec onstruction on an independent workstation. NASCET criteria was utilized. Automated exposure control was utilized for the study. A dose lowering technique was utilized adhering to the principles of ALA RA. CT DOSE: 1023.22 mGy.cm Findings: Visualized portions of the lung apices are unremarkable. There is tortuosity of the proxima l bilateral vertebral arteries. No significant stenoses are identified. Left vertebral artery is alf nant. There is no dissection. The bilateral common carotid and cervical internal carotid arteries are patent. There is no aneurysm within the neck. There is no cervical spine fracture. IMPRESSION: Unremarkable CTA of the neck. No stenosis or dissection. ACT 112: Negative or not required by law. Electronically signed by: Rnoy Becerril M.D. 01/28/2023 4:00 PM
[2023-01-28] MEDS ORDERED: MECLIZINE 12.5 MG TAB PO STA (16:36)
[2023-01-28] MEDS ORDERED: KETOROLAC TROMETHAMINE 15 MG/ML VIAL IV STA (16:56)
[2023-01-28] MEDS ORDERED: ONDANSETRON HOME PACK 4MG OD TAB PO ONE (18:13)
--- NOTE | 2023-01-28 18:32 | Emergency Department Note ---
History of Present Illness General Chief complaint: Dizziness Time Seen by Provider: 01/28/23 14:04 History of Present Illness Provider complaint: Dizziness headache Onset (ago): hour(s) 6 82-year-old female presents emergency department for headache and dizziness. Patient states she woke up this morning at 8 AM and started feeling dizzy and felt like she had a headache. She reports some nausea. No vomiting. No fevers. No falls or traumas. Patient states she has been taking a new [id number] weight loss supplement and attempt to lose weight before her grandsons wedding this week. She reports no vomiting. No diarrhea. No melena or hematochezia. No chest pain or difficulty breathing. Home Medications Medication Instructions Recorded Confirmed Type cholecalciferol (vitamin D3) 125 5,000 units PO QAM 01/09/19 01/28/23 History mcg (5,000 unit) capsule multivitamin 1 tab PO TID 02/09/21 01/28/23 History melatonin 3 mg tablet 3 mg PO HS PRN Sleep 09/06/21 01/28/23 History Ultimate Bladder Support 1 cap PO DAILY 06/28/22 01/28/23 History meclizine 12.5 mg tablet 12.5 mg PO TID PRN dizziness #20 01/28/23 01/28/23 Rx tabs ondansetron 4 mg disintegrating 4 mg PO Q8H PRN nausea and 01/28/23 Rx tablet vomiting #30 tabs Allergies Allergy/AdvReac Type Severity Reaction Status Date / Time ampicillin Allergy Intermediate Rash Verified 01/28/23 21:19 Penicillins Allergy Intermediate Rash Verified 01/28/23 21:19 tetracycline Allergy Intermediate Rash Verified 01/28/23 21:19 clarithromycin AdvReac Mild GI UPSET Verified 01/28/23 21:19 metronidazole AdvReac Mild GI UPSET Verified 01/28/23 21:19 Past Med/Surg History Medical History History of anesthesia problem pt stated "she is concerned because her last colonoscopy took a long time and she had pain during the procedure and was aware of what was going on and does not want that to happen again" UTI (urinary tract infection) REASON FOR CURRENT ANX Osteoarthritis Chronic back pain follows with nurse wound care GIST (gastrointestinal stromal tumor), non-malignant (~2019) HX History of COVID-19 end of January 2021. fever/cough/night sweats/fatigue/weakness. no current problems. Pulmonary embolism x3 s/p hysterectomy (30+ years ago) treated with blood thinners. no current problems. Heart murmur NO CARDS Secondary hyperparathyroidism pt unaware, I searched old records did not find dx Surgical History History of cataract surgery RT/LEFT History of bladder surgery bladder sling insertion History of colonoscopy History of esophagogastroduodenoscopy (EGD) History of repair of rectocele History of open reduction and internal fixation (ORIF) procedure right foot History of carpal tunnel surgery of left wrist History of carpal tunnel surgery of right wrist History of cholecystectomy History of tonsillectomy History of [place] [facility] [place] H/O: hysterectomy vaginal hysterectomy Family History Grandmother Myocardial infarction Other No family history of adverse response to anesthesia No pertinent family history Denies family history of Ovarian cancer Prostate cancer Breast cancer Colorectal cancer Social History Smoking Status: Never smoker Tobacco Type: Cigarettes Second Hand Exposure: No; Do You Dip or Chew Tobacco: No; Hx Alcohol Use: No Hx Substance Use: No Preferred Language: Central African Communication Ability: Effective Hearing Ability: Use of Hearing Aid Fuel Management Handler Required: No Beliefs That Will Affect Care: None marital status: Current Living Situation: Spouse Current Living Situation Comment: home with current occupational status: retired How many Children do You have: 3 Other Information That Helps Us Care for You: No Feels Safe at Home: Yes Safety Concerns: Feels Safe At This Time Childhood Exposure to Second-Hand Smoke: Yes Diet: regular caffeine: Yes Dental Care, Regularly: No Physical Activity Frequency: Does not Exercise Seatbelt Use: always Sunscreen Use: No Assistive Devices: Cane and Glasses Physical Exam Vital Signs Vital Signs - 24 hr 01/28/23 14:01 01/28/23 14:01 01/28/23 14:03 Temperature 36.7 C Temperature Source Oral Pulse Rate 63 69 69 Pulse Rate [Apical] Pulse Rate from SpO2 Sensor 70 Respiratory Rate 18 16 Respiratory Effort / Characteristics Respiratory Depth Blood Pressure 132/83 Blood Pressure [Right Arm] Blood Pressure Mean 99 Blood Pressure Mean [Right Arm] Pulse Oximetry 96 99 Oxygen Delivery Method Room Air Sepsis Recent Fever Within 48 Hours No Sepsis New/Unexplained Change in Mental Status No Sepsis Action Taken by Nursing No Action Required 01/28/23 14:26 01/28/23 14:30 01/28/23 14:30 Temperature Temperature Source Pulse Rate 66 Pulse Rate [Apical] Pulse Rate from SpO2 Sensor 66 Respiratory Rate 22 Respiratory Effort / Characteristics Respiratory Depth Blood Pressure 133/79 Blood Pressure [Right Arm] Blood Pressure Mean 103 Blood Pressure Mean [Right Arm] Pulse Oximetry 99 97 Oxygen Delivery Method Sepsis Recent Fever Within 48 Hours Sepsis New/Unexplained Change in Mental Status Sepsis Action Taken by Nursing 01/28/23 15:32 01/28/23 16:32 01/28/23 17:00 Temperature Temperature Source Pulse Rate Pulse Rate [Apical] 85 60 Pulse Rate from SpO2 Sensor Respiratory Rate 18 19 Respiratory Effort / Characteristics Non-Labored Respiratory Depth Normal Blood Pressure Blood Pressure [Right Arm] 126/82 132/73 Blood Pressure Mean Blood Pressure Mean [Right Arm] 96 92 Pulse Oximetry 92 91 Oxygen Delivery Method Room Air Room Air Room Air Sepsis Recent Fever Within 48 Hours Sepsis New/Unexplained Change in Mental Status Sepsis Action Taken by Nursing 01/28/23 17:32 01/28/23 18:37 Temperature Temperature Source Pulse Rate 63 69 Pulse Rate [Apical] Pulse Rate from SpO2 Sensor Respiratory Rate 16 Respiratory Effort / Characteristics Respiratory Depth Blood Pressure 121/71 Blood Pressure [Right Arm] Blood Pressure Mean Blood Pressure Mean [Right Arm] Pulse Oximetry 94 Oxygen Delivery Method Room Air Sepsis Recent Fever Within 48 Hours Sepsis New/Unexplained Change in Mental Status Sepsis Action Taken by Nursing Physical Exam HENT: Exam performed. -Head: Normocephalic and atraumatic. -Right Ear: External ear normal. No mastoid erythema -Left Ear: External ear normal. No mastoid erythema -Mouth/Throat: The oropharynx is clear and moist. No trismus in the jaw. No dental abscesses or uvula swelling. No oropharyngeal exudate or tonsillar abscesses. EYES: Conjunctivae and EOM are normal. Pupils are equal, round, and reactive to light. Right eye exhibits no discharge. Left eye exhibits no discharge. No scleral icterus. Funduscopic exam showed no AV nicking or papilledema bilaterally. NECK: Normal range of motion. Neck supple. No JVD present. No spinous process tenderness present. No rigidity. No tracheal deviation and normal range of motion present. No Brudzinski's sign and no Kernig's sign noted. CV: Normal rate, regular rhythm, normal heart sounds and intact distal pulses. There is no peripheral edema. Palpable radial pulses bue. PULM/CHEST: Effort normal and breath sounds normal. No respiratory distress. No stridor. She has no wheezes. She has no rales. ABD: Soft nontender. No guarding or rigidity. MUSC/SKEL: Normal range of motion. There is no peripheral edema, tenderness or deformity. NEURO: She is alert and oriented to person, place, and time. She has normal strength. No cranial nerve deficit or sensory deficit. Coordination and gait normal. GCS eye subscore is 4. GCS verbal subscore is 5. GCS motor subscore is 6. Cerebellar tests wnl. No clonus. SKIN: Skin is warm and dry. She is not diaphoretic. PSYCH: She has a normal mood and affect. Behavior is normal. Judgment and thought content normal. Course Course 1404: The patient was evaluated in room C12. A complete history and physical exam was performed Cardiac monitoring: An order was placed for continuous cardiac monitoring. The monitor shows a rate of 70 with sinus rhythm interpreted by me 1700: Vital signs stable. Labs and imaging within normal limits. On reassessment the patient states she feels a little bit better but is still reporting some dizziness and headache. Patient will be given repeat dose of Zofran Toradol and meclizine. 1800: Vital signs stable. Labs and imaging within normal limits. Patient states her headache nausea and dizziness have resolved. Is thought that the patient's symptoms are most likely due to vertigo however there could be some component of this [id number] supplement that she is not taking for attempted weight loss. I advised her either way to stop taking the supplement and to take meclizine as needed for dizziness. Patient be discharged in stable condition is coming to pick patient back up. DISCHARGE - Plan of care discussed with patient and questions answered. The patient was given both verbal and printed discharge instructions. The patient verbalized understanding and ability to comply. The patient is to seek outpatient follow up as noted in the discharge instructions. The patient verbalized understanding and ability to comply. The patient is discharged in stable condition. The patient was instructed to return for worsening symptoms. 1956: The arrived to tile picker the patient and the patient started saying she was having dizziness and nausea again. The patient is crying stating she cannot go home because she is too dizzy and nauseous. Reglan and Benadryl ordered for the patient additionally. Discussed the case with [facility] hospitalist Dr. Snowden who will evaluate the patient for admission. Administered Medications Enoxaparin Sodium (Enoxaparin Inj 40 Mg/0.4 Ml Syr) 40 mg SQ QAM LINH Stop: 02/28/23 08:59 Last Admin: 01/29/23 10:40 Dose: 40 mg Documented By: LEIGHA Meclizine HCl (Meclizine Hcl 25 Mg Tab) 25 mg PO TID LINH Stop: 02/28/23 00:01 Last Admin: 01/29/23 09:03 Dose: 25 mg Documented By: Admin: 01/29/23 01:21 Dose: 25 mg Documented By: NAKUL Discontinued Medications Diphenhydramine HCl (Diphenhydramine 50 Mg/Ml Vial) 12.5 mg IV NOW STA Stop: 01/28/23 19:56 Last Admin: 01/28/23 20:47 Dose: 12.5 mg Documented By: LASHA Sodium Chloride (Nss) 500 mls @ 999 mls/hr IV .Q31M ONE Stop: 01/28/23 14:49 Last Infusion: 01/28/23 15:33 Dose: Infused Documented By: JUAN CARLOS Admin: 01/28/23 14:30 Dose: 999 mls/hr Documented By: ROCHELLE Ioversol (Optiray 320 125ml) 115 ml IV ONCE ONE Stop: 01/28/23 14:55 Last Admin: 01/28/23 14:54 Dose: 115 ml Documented By: ANA Ketorolac Tromethamine (Ketorolac Tromethamine 15 Mg/Ml Vial) 15 mg IV NOW STA Stop: 01/28/23 16:57 Last Admin: 01/28/23 17:04 Dose: 15 mg Documented By: JUAN CARLOS Meclizine HCl (Meclizine 12.5 Mg Tab) 12.5 mg PO NOW STA Stop: 01/28/23 16:37 Last Admin: 01/28/23 17:10 Dose: 12.5 mg Documented By: JUAN CARLOS Metoclopramide HCl (Metoclopramide Hcl Inj 5 Mg/Ml 2 Ml Vial) 5 mg IV ONE ONE Stop: 01/28/23 19:56 Last Admin: 01/28/23 20:48 Dose: 5 mg Documented By: LASHA Ondansetron HCl (Ondansetron Inj 2 Mg/Ml 2 Ml Vial) 4 mg IV NOW STA Stop: 01/28/23 14:20 Last Admin: 01/28/23 14:30 Dose: 4 mg Documented By: ROCHELLE Ondansetron HCl (Ondansetron Inj 2 Mg/Ml 2 Ml Vial) 4 mg IV NOW STA Stop: 01/28/23 16:57 Last Admin: 01/28/23 17:03 Dose: 4 mg Documented By: JUAN CARLOS Ondansetron HCl (Ondansetron Home Pack 4mg Od Tab) 1 each PO NOW ONE Stop: 01/28/23 18:14 Last Admin: 01/28/23 18:29 Dose: 1 each Documented By: JUAN CARLOS Medical Decision Making Laboratory Data Attestation: I reviewed the patient's lab results. 01/29/23 06:44 01/29/23 06:44 Lab Results 01/28/23 01/28/23 Range/Units 14:15 14:24 WBC 6.76 (4.8-10.8) K/ul RBC 4.73 (4.20-5.40) M/uL Hgb 14.1 (12.0-16.0) g/dl POC Hgb 13.9 (12.0-16.0) g/dl Hct 42.8 (37.0-47.0) % POC Hct 41 (37-47) % MCV 90.5 (80.0-100.0) fL MCH 29.8 (25.0-34.0) pg MCHC 32.9 (32.0-36.0) g/dL RDW Std Deviation 44.9 (36.4-46.3) fL RDW Coeff of Arleen 13.3 (11.5-14.5) % Plt Count 259 (130-400) K/uL MPV 9.8 (9.4-12.4) fL Immature Gran % (Auto) 0.3 % Neut % (Auto) 80.2 % Lymph % (Auto) 11.8 % [place] % (Auto) 5.9 % Eos % (Auto) 0.6 % Baso % (Auto) 1.2 % Neut # (Auto) 5.42 (1.40-6.50) K/uL Lymph # (Auto) 0.80 L (1.20-3.40) K/uL [place] # (Auto) 0.40 (0.11-0.59) K/uL Eos # (Auto) 0.04 (0.00-0.50) K/uL Baso # (Auto) 0.08 (0.00-0.20) K/uL Immature Gran # (Auto) 0.02 (0.01-0.20) K/uL POC Sodium 142 (135-144) mmol/L Sodium 142 (136-145) mmol/L POC Potassium 3.9 (3.3-5.0) mmol/L Potassium 4.0 (3.5-5.1) mmol/L POC Chloride 108 (101-112) mmol/L Chloride 109 H (98-107) mmol/L Carbon Dioxide 27 (21-32) mmol/L POC Total CO2 24 (24-31) mmol/L Anion Gap 6 (3-11) POC Anion Gap 16.0 (16-25) mmol/L POC BUN 15 (7-18) mg/dl BUN 15 (6-23) mg/dl Creatinine 1.01 (0.6-1.2) mg/dl POC Creatinine 1.0 (0.6-1.3) mg/dl Est Cr Clr Drug Dosing 44.9 ml/min Est GFR ( Amer) 60.0 ml/min Est GFR (Non-Af Amer) 51.8 ml/min BUN/Creatinine Ratio 14.9 (10-20) Glucose 108 H (70-99(Fasting)) mg/dl POC Glucose (other) 109 H (70-99) mg/dl Calcium 9.3 (8.6-10.3) mg/dl POC Ioniz Calcium Elvis 1.21 (1.12-1.32) mmol/l Magnesium 2.4 (1.7-2.4) mg/dl Imaging Data Attestation: I personally reviewed and interpreted this imaging study as follows: My Impression: CT head: No ICH Radiologist's Impression: Head CTA 01/28/23 14:[address] OF THE BRAIN; CT ANGIOGRAM OF THE BRAIN CLINICAL HISTORY: Dizziness. COMPARISON STUDY: CT of the brain dated 08/16/2021. CT urogram of the brain dated 09/27/2017. TECHNIQUE: Unenhanced axial CT scan of the brain is performed. Subsequently, following the IV administration of 115 cc of Optiray 320, CT angiogram of the brain was performed from the skull base to the vertex. Images are reviewed in the axial, sagittal, and coronal planes. 3-D MIPS images are created and assessed. IV contrast was administered without complication. A dose lowering technique was utilized adhering to the principles of ALARA. FINDINGS: Brain parenchyma: There is age-related involutional change noting mild subcortical and periventricular microangiopathic disease. There is no hemorrhage, mass effect, or evidence of acute territorial ischemia by CT criteria. There is no evidence of enhancing mass lesion on the angiogram phase images. No extra-axial fluid collection is seen. Yuan-white matter differentiation is preserved. Ventricles, sulci, and cisterns: Prominent secondary to involutional change. CT angiogram of the brain: There is moderate atherosclerotic calcification of the cavernous carotid arteries. The internal carotid arteries are widely patent, as are the anterior and middle cerebral arteries. The vertebrobasilar system and posterior cerebral arteries are widely patent. The left vertebral artery is slightly dominant. There is no aneurysm, high-grade stenosis, or focal vessel cutoff identified throughout the intracranial circulation. Dural sinuses: Clear as visualized. Orbits: The bony orbits are intact. The orbital contents are normal as visualized noting bilateral ocular lens implant0. Sinuses and mastoids: The visualized paranasal sinuses are clear. The mastoid air cells are well pneumatized. Calvarium: The skeletal structures are osteopenic. The calvarium appears intact. IMPRESSION: 1. There is no hemorrhage, mass effect, or evidence of acute territorial ischemia by CT criteria. 2. Unremarkable CT angiogram of the brain. ACT 112: Negative or not required by law. Electronically signed by: Juan Martinez M.D. 01/28/2023 3:[address] 01/28/23 14:[address] OF THE BRAIN; CT ANGIOGRAM OF THE BRAIN CLINICAL HISTORY: Dizziness. COMPARISON STUDY: CT of the brain dated 08/16/2021. CT urogram of the brain dated 09/27/2017. TECHNIQUE: Unenhanced axial CT scan of the brain is performed. Subsequently, following the IV administration of 115 cc of Optiray 320, CT angiogram of the brain was performed from the skull base to the vertex. Images are reviewed in the axial, sagittal, and coronal planes. 3-D MIPS images are created and assessed. IV contrast was administered without complication. A dose lowering technique was utilized adhering to the principles of ALARA. FINDINGS: Brain parenchyma: There is age-related involutional change noting mild subcortical and periventricular microangiopathic disease. There is no hemorrhage, mass effect, or evidence of acute territorial ischemia by CT criteria. There is no evidence of enhancing mass lesion on the angiogram phase images. No extra-axial fluid collection is seen. Yuan-white matter differentiation is preserved. Ventricles, sulci, and cisterns: Prominent secondary to involutional change. CT angiogram of the brain: There is moderate atherosclerotic calcification of the cavernous carotid arteries. The internal carotid arteries are widely patent, as are the anterior and middle cerebral arteries. The vertebrobasilar system and posterior cerebral arteries are widely patent. The left vertebral artery is slightly dominant. There is no aneurysm, high-grade stenosis, or focal vessel cutoff identified throughout the intracranial circulation. Dural sinuses: Clear as visualized. Orbits: The bony orbits are intact. The orbital contents are normal as visualized noting bilateral ocular lens implant0. Sinuses and mastoids: The visualized paranasal sinuses are clear. The mastoid air cells are well pneumatized. Calvarium: The skeletal structures are osteopenic. The calvarium appears intact. IMPRESSION: 1. There is no hemorrhage, mass effect, or evidence of acute territorial ischemia by CT criteria. 2. Unremarkable CT angiogram of the brain. ACT 112: Negative or not required by law. Electronically signed by: Juan Martinez M.D. 01/28/2023 3:10 PM Neck CTA 01/28/23 14:23 CT ANGIOGRAPHY OF THE NECK WITH CONTRAST CLINICAL HISTORY: Dizziness. COMPARISON STUDY: CTA of the neck September 27, 2017. Carotid ultrasound January 13, 2020. Technique: CT angiography of the carotid and vertebral arteries was obtained using Optiray and 3D reconstruction on an independent workstation. NASCET criteria was utilized. Automated exposure control was utilized for the study. A dose lowering technique was utilized adhering to the principles of ALARA. CT DOSE: 1023.22 mGy.cm Findings: Visualized portions of the lung apices are unremarkable. There is tortuosity of the proximal bilateral vertebral arteries. No significant stenoses are identified. Left vertebral artery is dominant. There is no dissection. The bilateral common carotid and cervical internal carotid arteries are patent. There is no aneurysm within the neck. There is no cervical spine fracture. IMPRESSION: Unremarkable CTA of the neck. No stenosis or dissection. ACT 112: Negative or not required by law. Electronically signed by: Rony Becerril M.D. 01/28/2023 4:00 PM ECG Data Attestation: I personally reviewed and interpreted this ECG as follows: Rate (beats per minute): 67 Rhythm: + normal sinus ECG Intervals/blocks: + Normal QRS, + Normal TN and + Normal QT-c ECG ST segments: + Normal ST segments MDM Narrative 1404: The patient was evaluated in room C12. A complete history and physical exam was performed Cardiac monitoring: An order was placed for continuous cardiac monitoring. The monitor shows a rate of 70 with sinus rhythm interpreted by me 1700: Vital signs stable. Labs and imaging within normal limits. On reassessment the patient states she feels a little bit better but is still reporting some dizziness and headache. Patient will be given repeat dose of Zofran Toradol and meclizine. 1800: Vital signs stable. Labs and imaging within normal limits. Patient states her headache nausea and dizziness have resolved. Is thought that the patient's symptoms are most likely due to vertigo however there could be some component of this [id number] supplement that she is not taking for attempted weight loss. I advised her either way to stop taking the supplement and to take meclizine as needed for dizziness. Patient be discharged in stable condition is coming to pick patient back up. DISCHARGE - Plan of care discussed with patient and questions answered. The patient was given both verbal and printed discharge instructions. The patient verbalized understanding and ability to comply. The patient is to seek outpatient follow up as noted in the discharge instructions. The patient verbalized understanding and ability to comply. The patient is discharged in stable condition. The patient was instructed to return for worsening symptoms. 195: The arrived to tile picker the patient and the patient started saying she was having dizziness and nausea again. The patient is crying stating she cannot go home because she is too dizzy and nauseous. Reglan and Benadryl ordered for the patient additionally. Discussed the case with [facility] hospitalist Dr. Snowden who will evaluate the patient for admission. Impression & Plan Vertigo, Adverse drug reaction Discharge Plan Visit Data Chief Complaint: Dizziness ED Provider: Boom Marquez Discharge Problem: Vertigo, Adverse drug reaction Patient Disposition: Admitted As Inpatient Discharge Instructions Interventions: ED Discharge Assessment Last Done: 01/28/23 23:13
--- NOTE | 2023-01-28 19:50 | Electrocardiogram Report ---
Test Reason : Blood Pressure : / mmHG Vent. Rate : 067 BPM Atrial Rate : 067 BPM P-R Int : 160 ms QRS Dur : 098 ms QT Int : 402 ms P-R-T Axes : 058 051 072 degrees QTc Int : 424 ms Normal sinus rhythm Normal ECG When compared with ECG of 08-FEB-2021 23:48, Nonspecific T wave abnormality no longer evident in Anterior leads Confirmed by Aristeo Fan ([id number]) on 01/28/2023 7:50:43 PM Referred By: Confirmed By:Obi Fan
[2023-01-28] MEDS ORDERED: METOCLOPRAMIDE HCL INJ 5 MG/ML 2 ML VIAL IV ONE (19:55)
[2023-01-28] MEDS ORDERED: diphenhydrAMINE 50 MG/ML VIAL IV STA (19:55)
--- NOTE | 2023-01-28 20:33 | History & Physical Report ---
Date of Service January 28, 2023 Assessment & Plan (1) Vertigo: Plan: 82yo female presenting with vertigo. Symptoms, physical, laboratory findings and imaging most exam consistent with BPPV. Patient unfortunately remains symptomatic despite multiple rounds of medications adminstered in the ER. She reports reluctance to return home because she is afraid of falling. -Observation to medical -Meclizine 25mg po TID -PT/OT Patient is hopeful that her symptoms will improve and she will be able to attend her grandson's wedding in [place] on 02/02/23 F/E/N - Saline lock. Electrolytes WNL, Regular diet as tolerated Ppx - Lovenox Code - DNR/DNI per discussion with patient Dispo -Observation to medical History of Present Illness Chief Complaint: vertigo Primary Care Provider: MIGUEL Mei Alyx Jodie is a pleasant 82yo female presenting with vertigo. Patient was in her usual state of health until this AM at 08:00 when she developed vertigo and dizziness. She reports the room spinning, difficulty with balance and ambulation. Her symptoms are provoked by movement and head turning. She has had multiple episodes of nausea with non-bloody/non-bilious vomiting as well. She denies fever, chills, chest pain, cough, SOB. Denies headache, visual changes, focal numbness/tingling or weakness. She does have pressure in her ears and head as well as tinnitus. She denies recent URI In the ER patient is afebrile, HD stable. She was administered multiple anti- emetic agents with some improvement in her symptoms. She was initially discharged but upon trying to get up from bed she became acutely dizzy and developed nausea and vomiting. She reports that she does not feel safe returning home and is afraid that she may lose her balance and fall. She had vertigo in the past which lasted 1 week She has been taking an "all natural" diet supplement this week because she is trying to lose some weight before her grandson's wedding this Saturday. ER Course: NSS x 500mL Zofran 4mg IV x 2 Toradol 15mg IV Meclizine 12.5mg po Benadryl 12.5mg IV Reglan 5mg IV Allergies Allergy/AdvReac Type Severity Reaction Status Date / Time ampicillin Allergy Intermediate Rash Verified 01/28/23 21:19 Penicillins Allergy Intermediate Rash Verified 01/28/23 21:19 tetracycline Allergy Intermediate Rash Verified 01/28/23 21:19 clarithromycin AdvReac Mild GI UPSET Verified 01/28/23 21:19 metronidazole AdvReac Mild GI UPSET Verified 01/28/23 21:19 Home Medications Medication Instructions Recorded Confirmed Type cholecalciferol (vitamin D3) 125 5,000 units PO QAM 01/09/19 01/28/23 History mcg (5,000 unit) capsule multivitamin 1 tab PO TID 02/09/21 01/28/23 History melatonin 3 mg tablet 3 mg PO HS PRN Sleep 09/06/21 01/28/23 History Ultimate Bladder Support 1 cap PO DAILY 06/28/22 01/28/23 History meclizine 12.5 mg tablet 12.5 mg PO TID PRN dizziness #20 01/28/23 01/28/23 Rx tabs ondansetron 4 mg disintegrating 4 mg PO Q8H PRN nausea and 01/28/23 Rx tablet vomiting #30 tabs Past Med/Surg History Medical History History of anesthesia problem pt stated "she is concerned because her last colonoscopy took a long time and she had pain during the procedure and was aware of what was going on and does not want that to happen again" UTI (urinary tract infection) REASON FOR CURRENT ANX Osteoarthritis Chronic back pain follows with childcare worker GIST (gastrointestinal stromal tumor), non-malignant (~2020) HX History of COVID-19 end of January 2021. fever/cough/night sweats/fatigue/weakness. no current problems. Pulmonary embolism x3 s/p hysterectomy (30+ years ago) treated with blood thinners. no current problems. Heart murmur NO CARDS Secondary hyperparathyroidism pt unaware, I searched old records did not find dx Surgical History History of cataract surgery RT/LEFT History of bladder surgery bladder sling insertion History of colonoscopy History of esophagogastroduodenoscopy (EGD) History of repair of rectocele History of open reduction and internal fixation (ORIF) procedure right foot History of carpal tunnel surgery of left wrist History of carpal tunnel surgery of right wrist History of cholecystectomy History of tonsillectomy History of gastric surgery 2020 at [facility] [place] to remove gastrointestinal stromal tumor H/O: hysterectomy vaginal hysterectomy Family History Grandmother Myocardial infarction Other No family history of adverse response to anesthesia No pertinent family history Denies family history of Ovarian cancer Prostate cancer Breast cancer Colorectal cancer Social History Smoking Status: Never smoker Tobacco Type: Cigarettes Second Hand Exposure: No; Do You Dip or Chew Tobacco: No; Hx Alcohol Use: No Hx Substance Use: No Preferred Language: Turkmen Communication Ability: Effective Hearing Ability: Use of Hearing Aid Disease Case Manager Required: No Beliefs That Will Affect Care: None marital status: Current Living Situation: Spouse Current Living Situation Comment: home with current occupational status: retired How many Children do You have: 3 Other Information That Helps Us Care for You: No Feels Safe at Home: Yes Safety Concerns: Feels Safe At This Time Childhood Exposure to Second-Hand Smoke: Yes Diet: regular caffeine: Yes Dental Care, Regularly: No Physical Activity Frequency: Does not Exercise Seatbelt Use: always Sunscreen Use: No Assistive Devices: Cane and Glasses Review of Systems Review of Systems: All systems reviewed & are unremarkable except as noted in HPI & below Physical Exam Physical Exam: General: patient resting comfortably, NAD, non-toxic in appearance, AA&O x 4 Skin: warm, dry, intact, no rashes or lesions HEENT: NC/AT, PERRL, EOMI, anicteric sclera, conjunctiva without injection, external ear normal to inspection and nontender, nares patent, moist mucus membranes, dentition intact, no oropharyngeal lesions, neck supple, trachea midline, no LAD, no thyromegaly, no JVD Heart: +S1/S2, regular, no m/r/g Lungs: equal air entry bilaterally, no rales/rhonchi/wheezes Abd: +BS, soft, NT/ND, no masses/organomegaly/ascites Ext: warm, 2+ pulses in UE/LE bilaterally, no clubbing/cyanosis or edema Neuro: nonfocal, patient AA&O x 4, speech intact, no facial droop, moving all extremities on command with equal strength 5/5 HINTS exam with corrective saccade, right horizontal nystagmus, negative test of skew Results & Data Results & Data Vital Signs (Past 12 Hours) Vital Signs Temp Pulse Pulse Resp BP BP Pulse Ox 01/28/23 18:37 69 16 121/71 94 01/28/23 17:32 63 01/28/23 17:00 60 19 132/73 91 01/28/23 16:32 01/28/23 15:32 85 18 126/82 92 01/28/23 14:30 133/79 01/28/23 14:30 66 22 97 01/28/23 14:26 99 01/28/23 14:03 69 01/28/23 14:01 69 16 99 01/28/23 14:01 36.7 C 63 18 132/83 96 O2 Del Method 01/28/23 18:37 Room Air 01/28/23 17:32 01/28/23 17:00 Room Air 01/28/23 16:32 Room Air 01/28/23 15:32 Room Air 01/28/23 14:30 01/28/23 14:30 01/28/23 14:26 01/28/23 14:03 01/28/23 14:01 01/28/23 14:01 Room Air Laboratory Results Laboratory Results WBC 6.76 K/ul (4.8-10.8) 01/28/23 14:15 RBC 4.73 M/uL (4.20-5.40) 01/28/23 14:15 Hgb 14.1 g/dl (12.0-16.0) 01/28/23 14:15 POC Hgb 13.9 g/dl (12.0-16.0) 01/28/23 14:24 Hct 42.8 % (37.0-47.0) 01/28/23 14:15 POC Hct 41 % (37-47) 01/28/23 14:24 MCV 90.5 fL (80.0-100.0) 01/28/23 14:15 MCH 29.8 pg (25.0-34.0) 01/28/23 14:15 MCHC 32.9 g/dL (32.0-36.0) 01/28/23 14:15 RDW Std Deviation 44.9 fL (36.4-46.3) 01/28/23 14:15 RDW Coeff of Arleen 13.3 % (11.5-14.5) 01/28/23 14:15 Plt Count 259 K/uL (130-400) 01/28/23 14:15 MPV 9.8 fL (9.4-12.4) 01/28/23 14:15 Immature Gran % (Auto) 0.3 % 01/28/23 14:15 Neut % (Auto) 80.2 % 01/28/23 14:15 Lymph % (Auto) 11.8 % 01/28/23 14:15 Russell % (Auto) 5.9 % 01/28/23 14:15 Eos % (Auto) 0.6 % 01/28/23 14:15 Baso % (Auto) 1.2 % 01/28/23 14:15 Neut # (Auto) 5.42 K/uL (1.40-6.50) 01/28/23 14:15 Lymph # (Auto) 0.80 K/uL (1.20-3.40) L 01/28/23 14:15 Russell # (Auto) 0.40 K/uL (0.11-0.59) 01/28/23 14:15 Eos # (Auto) 0.04 K/uL (0.00-0.50) 01/28/23 14:15 Baso # (Auto) 0.08 K/uL (0.00-0.20) 01/28/23 14:15 Immature Gran # (Auto) 0.02 K/uL (0.01-0.20) 01/28/23 14:15 POC Sodium 142 mmol/L (135-144) 01/28/23 14:24 Sodium 142 mmol/L (136-145) 01/28/23 14:15 POC Potassium 3.9 mmol/L (3.3-5.0) 01/28/23 14:24 Potassium 4.0 mmol/L (3.5-5.1) 01/28/23 14:15 POC Chloride 108 mmol/L (101-112) 01/28/23 14:24 Chloride 109 mmol/L (98-107) H 01/28/23 14:15 Carbon Dioxide 27 mmol/L (21-32) 01/28/23 14:15 POC Total CO2 24 mmol/L (24-31) 01/28/23 14:24 Anion Gap 6 (3-11) 01/28/23 14:15 POC Anion Gap 16.0 mmol/L (16-25) 01/28/23 14:24 POC BUN 15 mg/dl (7-18) 01/28/23 14:24 BUN 15 mg/dl (6-23) 01/28/23 14:15 Creatinine 1.01 mg/dl (0.6-1.2) 01/28/23 14:15 POC Creatinine 1.0 mg/dl (0.6-1.3) 01/28/23 14:24 Est Cr Clr Drug Dosing 44.9 ml/min 01/28/23 14:15 Est GFR ( Amer) 60.0 ml/min 01/28/23 14:15 Est GFR (Non-Af Amer) 51.8 ml/min 01/28/23 14:15 BUN/Creatinine Ratio 14.9 (10-20) 01/28/23 14:15 Glucose 108 mg/dl (70-99(Fasting)) H 01/28/23 14:15 POC Glucose (other) 109 mg/dl (70-99) H 01/28/23 14:24 Calcium 9.3 mg/dl (8.6-10.3) 01/28/23 14:15 POC Ioniz Calcium Elvis 1.21 mmol/l (1.12-1.32) 01/28/23 14:24 Phosphorus 3.7 mg/dl (2.5-4.9) 01/29/23 00:46 Magnesium 2.3 mg/dl (1.7-2.4) 01/29/23 00:46 Impressions Head CTA 01/28/23 14:[address] OF THE BRAIN; CT ANGIOGRAM OF THE BRAIN CLINICAL HISTORY: Dizziness. COMPARISON STUDY: CT of the brain dated 08/16/2021. CT urogram of the brain dated 09/27/2017. TECHNIQUE: Unenhanced axial CT scan of the brain is performed. Subsequently, following the IV administration of 115 cc of Optiray 320, CT angiogram of the brain was performed from the skull base to the vertex. Images are reviewed in the axial, sagittal, and coronal planes. 3-D MIPS images are created and assessed. IV contrast was administered without complication. A dose lowering technique was utilized adhering to the principles of ALARA. FINDINGS: Brain parenchyma: There is age-related involutional change noting mild subcortical and periventricular microangiopathic disease. There is no hemorrhage, mass effect, or evidence of acute territorial ischemia by CT cri teria. There is no evidence of enhancing mass lesion on the angiogram phase images. No extra-axial fluid collection is seen. Yuan-white matter differentiation is preserved. Ventricles, sulci, and cisterns: Prominent secondary to involutional change. CT angiogram of the brain: There is moderate atherosclerotic calcification of the cavernous carotid arteries. The internal carotid arteries are widely patent, as are the anterior and middle cerebral arteries. The vertebrobasilar system and posterior cerebral arteries are widely patent. The left vertebral artery is slightly dominant. There is no aneurysm, high-grade stenosis, or focal vessel cutoff identified throughout the intracranial circulation. Dural sinuses: Clear as visualized. Orbits: The bony orbits are intact. The orbital contents are normal as visualized noting bilateral ocular lens implant0. Sinuses and mastoids: The visualized paranasal sinuses are clear. The mastoid air cells are well pneumatized. Calvarium: The skeletal structures are osteopenic. The calvarium appears intact. IMPRESSION: 1. There is no hemorrhage, mass effect, or evidence of acute territorial ischemia by CT criteria. 2. Unremarkable CT angiogram of the brain. ACT 112: Negative or not required by law. Electronically signed by: Juan Martinez M.D. 01/28/2023 3:[address] 01/28/23 14:[address] OF THE BRAIN; CT ANGIOGRAM OF THE BRAIN CLINICAL HISTORY: Dizziness. COMPARISON STUDY: CT of the brain dated 08/16/2021. CT urogram of the brain dated 09/27/2017. TECHNIQUE: Unenhanced axial CT scan of the brain is performed. Subsequently, following the IV administration of 115 cc of Optiray 320, CT angiogram of the brain was performed from the skull base to the vertex. Images are reviewed in the axial, sagittal, and coronal planes. 3-D MIPS images are created and assessed. IV contrast was administered without complication. A dose lowering technique was utilized adhering to the principles of ALARA. FINDINGS: Brain parenchyma: There is age-related involutional change noting mild subcortical and periventricular microangiopathic disease. There is no hemorrhage, mass effect, or evidence of acute territorial ischemia by CT criteria. There is no evidence of enhancing mass lesion on the angiogram phase images. No extra-axial fluid collection is seen. Yuan-white matter d ifferentiation is preserved. Ventricles, sulci, and cisterns: Prominent secondary to involutional change. CT angiogram of the brain: There is moderate atherosclerotic calcification of the cavernous carotid arteries. The internal carotid arteries are widely patent, as are the anterior and middle cerebral arteries. The vertebrobasilar system and posterior cerebral arteries are widely patent. The left vertebral artery is slightly dominant. There is no aneurysm, high-grade stenosis, or focal vessel cutoff identified throughout the intracranial circulation. Dural sinuses: Clear as visualized. Orbits: The bony orbits are intact. The orbital contents are normal as visualized noting bilateral ocular lens implant0. Sinuses and mastoids: The visualized paranasal sinuses are clear. The mastoid air cells are well pneumatized. Calvarium: The skeletal structures are osteopenic. The calvarium appears intact. IMPRESSION: 1. There is no hemorrhage, mass effect, or evidence of acute territorial ischemia by CT criteria. 2. Unremarkable CT angiogram of the brain. ACT 112: Negative or not required by law. Electronically signed by: Juan Martinez M.D. 01/28/2023 3:10 PM Neck CTA 01/28/23 14:23 CT ANGIOGRAPHY OF THE NECK WITH CONTRAST CLINICAL HISTORY: Dizziness. COMPARISON STUDY: CTA of the neck September 27, 2017. Carotid ultrasound January 13, 2020. Technique: CT angiography of the carotid and vertebral arteries was obtained using Optiray and 3D reconstruction on an independent workstation. NASCET criteria was utilized. Automated exposure control was utilized for the study. A dose lowering technique was utilized adhering to the principles of ALARA. CT DOSE: 1023.22 mGy.cm Findings: Visualized portions of the lung apices are unremarkable. There is tortuosity of the proximal bilateral vertebral arteries. No significant stenoses are identified. Left vertebral artery is dominant. There is no dissection. The bilateral common carotid and cervical internal carotid arteries are patent. There is no aneurysm within the neck. There is no cervical spine fracture. IMPRESSION: Unremarkable CTA of the neck. No stenosis or dissection. ACT 112: Negative or not required by law. Electronically signed by: Rony Becerril M.D. 01/28/2023 4:00 PM ECG Additional Comments: [facility], [place] Electrocardiogram Report Signed Patient: ALYX KENNEDY Admit Date: 01/28/23 MR#: [id number] Att Phy: Acct ID: [id number] Debbie Phy: Aleida Green CRNP Date: 1940 Fam Phy: Age: 82 Location: ED Sex: F Room/Bed: cc: ~ DICTATED BY: Aristeo Fan MD Test Reason : Blood Pressure : / mmHG Vent. Rate : 067 BPM Atrial Rate : 067 BPM P-R Int : 160 ms QRS Dur : 098 ms QT Int : 402 ms P-R-T Axes : 058 051 072 degrees QTc Int : 424 ms Normal sinus rhythm Normal ECG When compared with ECG of 08-FEB-2021 23:48, Nonspecific T wave abnormality no longer evident in Anterior leads Confirmed by Aristeo Fan ([id number]) on 01/28/2023 7:50:43 PM Referred By: Confirmed By:Obi Fan Signed By: 01/28/23 1950 Dictated: 01/28/23 1408 Transcribed: Manager Of Pmo: The status of this report is Signed. Draft = Not yet reviewed or approved by Medical Physician. Signed = Reviewed and approved by Medical Phys PG Care Time/CCT Total # of Minutes Spent Total Time Spent with Patient: Total time spent is greater than 50% in coordination of care (as documented) at patient's floor/unit and/or counseling patient: Coding Level of Care Code 44896 INT INP/OBS CARE 2/55MIN Diagnoses Vertigo R42
[2023-01-29] MEDS ORDERED: ACETAMINOPHEN 325 MG TAB PO PRN (00:02)
[2023-01-29] MEDS ORDERED: ONDANSETRON INJ 2 MG/ML 2 ML VIAL IV PRN (00:02)
[2023-01-29] MEDS: MECLIZINE HCL 25 MG TAB PO SCH ×3 (01:21→13:42)
[2023-01-29 01:33] LABS: Magnesium 2.3 mg/dl (1.7-2.4); Phosphorus 3.7 mg/dl (2.5-4.9)
[2023-01-29 07:21] LABS: Hematocrit (blood only) 38.7 % (37.0-47.0); Hemoglobin 12.8 g/dl (12.0-16.0); Mean Corpuscular Hgb Conc 33.1 g/dL (32.0-36.0); Mean Corpuscular Volume 90.8 fL (80.0-100.0); Mean Platelet Volume 9.8 fL (9.4-12.4); Platelet Count 243 K/uL (130-400); RDW Coefficient of Variation 13.5 % (11.5-14.5); RDW Standard Deviation 45.1 fL (36.4-46.3); Red Blood Count 4.26 M/uL (4.20-5.40); White Blood Count 7.23 K/ul (4.8-10.8)
[2023-01-29 07:42] LABS: Calcium 8.8 mg/dl (8.6-10.3); Creatinine Clr Calc Pharmacy 42.8 ml/min; Est GFR (African American) 56.6 ml/min; Est GFR (Non-African American) 48.9 ml/min; Potassium 3.8 mmol/L (3.5-5.1)
[2023-01-29] MEDS ORDERED: ENOXAPARIN INJ 40 MG/0.4 ML SYR SQ SCH (09:00)
--- NOTE | 2023-01-29 12:19 | Discharge Summary ---
Date of Service January 29, 2023 Admission HPI Per Admitting Provider Alyx Feliciano is a pleasant 82yo female presenting with vertigo. Patient was in her usual state of health until this AM at 08:00 when she developed vertigo and dizziness. She reports the room spinning, difficulty with balance and ambulation. Her symptoms are provoked by movement and head turning. She has had multiple episodes of nausea with non-bloody/non-bilious vomiting as well. She denies fever, chills, chest pain, cough, SOB. Denies headache, visual changes, focal numbness/tingling or weakness. She does have pressure in her ears and head as well as tinnitus. She denies recent URI In the ER patient is afebrile, HD stable. She was administered multiple anti- emetic agents with some improvement in her symptoms. She was initially discharged but upon trying to get up from bed she became acutely dizzy and developed nausea and vomiting. She reports that she does not feel safe returning home and is afraid that she may lose her balance and fall. She had vertigo in the past which lasted 1 week She has been taking an "all natural" diet supplement this week because she is trying to lose some weight before her grandson's wedding this Saturday. ER Course: NSS x 500mL Zofran 4mg IV x 2 Toradol 15mg IV Meclizine 12.5mg po Benadryl 12.5mg IV Reglan 5mg IV Admission Exam Per Admitting Provider General: patient resting comfortably, NAD, non-toxic in appearance, AA&O x 4 Skin: warm, dry, intact, no rashes or lesions HEENT: NC/AT, PERRL, EOMI, anicteric sclera, conjunctiva without injection, external ear normal to inspection and nontender, nares patent, moist mucus membranes, dentition intact, no oropharyngeal lesions, neck supple, trachea midline, no LAD, no thyromegaly, no JVD Heart: +S1/S2, regular, no m/r/g Lungs: equal air entry bilaterally, no rales/rhonchi/wheezes Abd: +BS, soft, NT/ND, no masses/organomegaly/ascites Ext: warm, 2+ pulses in UE/LE bilaterally, no clubbing/cyanosis or edema Neuro: nonfocal, patient AA&O x 4, speech intact, no facial droop, moving all extremities on command with equal strength 5/5 HINTS exam with corrective saccade, right horizontal nystagmus, negative test of skew Principal Diagnosis benign positional vertigo. Resolved. Discharge Exam General: Awake, conversant Heart: S1, S2/regular rate and rhythm, no murmur rubs or gallops Lungs: Clear to auscultation bilaterally. Normal effort Abdomen: Soft/nontender/nondistended. No hepatosplenomegaly Extremities: No clubbing/cyanosis. No edema Behavior: Appropriate, cooperative Discharge Data Allergies Allergy/AdvReac Type Severity Reaction Status Date / Time ampicillin Allergy Intermediate Rash Verified 01/28/23 21:19 Penicillins Allergy Intermediate Rash Verified 01/28/23 21:19 tetracycline Allergy Intermediate Rash Verified 01/28/23 21:19 clarithromycin AdvReac Mild GI UPSET Verified 01/28/23 21:19 metronidazole AdvReac Mild GI UPSET Verified 01/28/23 21:19 Consultations 01/28/23 20:03 ED Decision to Admit Stat Ordered Studies 01/28/23 14:22 CT angio head w con Stat 01/28/23 14:23 CT angio neck with con Stat CT head/brain wo con Stat Hospital Course (1) Vertigo: 82yo female presenting with vertigo. Symptoms, physical, laboratory findings and imaging most exam consistent with BPPV. Patient unfortunately remains symptomatic despite multiple rounds of medications adminstered in the ER. Has completely resolved today She participated with physical therapy and was able to walk down the hallway without any further episodes of vertigo Stable for discharge Total Time Total Time Spent Total Time Spent (In Minutes): 35 Discharge Plan Discharge Items Patient Disposition: Home - Self-Care Reason For Visit: VERTIGO Discharge Diagnosis: Benign Positional Vertigo Activity: Resume your previous activity Non-emergency contact: Primary Care Provider Call non-emergency contact if: you have any medication questions and your symptoms worsen Follow-up/Referrals: Aleida Green CRNP [Primary Care Provider] - 02/07/23 10:30 am (Follow up scheduled on 02/07/23 @ 10:30) Diet: Regular Addtl Attending Provider Instructions: Advised to follow-up with PCP in 1 week Pending Studies at Discharge: No Stand-Alone Forms: My [facility] Medications and DC Order Prescriptions: New meclizine 12.5 mg tablet 12.5 mg PO TID PRN (Reason: dizziness) Qty: 20 0RF ondansetron 4 mg tablet,disintegrating 4 mg PO Q8H PRN (Reason: nausea and vomiting) Qty: 30 0RF Continued cholecalciferol (vitamin D3) 5,000 unit capsule 5,000 units PO QAM Ultimate Bladder Support 1 cap PO DAILY multivitamin Tablet 1 tab PO TID melatonin 3 mg Tablet 3 mg PO HS PRN (Reason: Sleep) Discharge Orders: Discharge Order (Routine); Ordered 01/29/23 Ordered By: Josie Egan/Other Patient Handouts: Vertigo Staying Safe Admission Data Admit Date/Time: 01/28/23 20:33 Attending Provider: Josie Bejarano Admit Provider: Nelly Snowden Primary Care Provider: Aleida Green. Other Providers: Nelly Snowden Other Interventions: Discharge Summary Assessment (RN) Last Done: 01/29/23 12:51 Coding Level of Care Code 22685 INP/OBS DISCH >30 MIN Diagnoses Vertigo R42
== END 2023-01-29 14:47 | disposition home or self-care (01) ==
LOC: ED 13:52 → 3N 13:52 → SUATTDRO 20:33 → 3N 23:13

== ENCOUNTER 2023-07-06 19:37 | Observation (INO) ==
[2023-07-06 21:55] LABS: Adenovirus PCR Not Detected (NotDetected); Bordetella parapertussis PCR Not Detected (NotDetected); Bordetella pertussis PCR Not Detected (NotDetected); Chlamydia pneumoniae PCR Not Detected (NotDetected); Coronavirus 229E PCR Not Detected (NotDetected); Coronavirus CoV-2 (COVID19)PCR Not Detected (NotDetected); Coronavirus HKU1 PCR Not Detected (NotDetected); Coronavirus NL63 PCR Not Detected (NotDetected); Coronavirus OC43PCR Not Detected (NotDetected); Human Metapneumovirus PCR Not Detected (NotDetected); Influenza A PCR Not Detected (NotDetected); Influenza B PCR Not Detected (NotDetected); Mycoplasma pneumoniae PCR Not Detected (NotDetected); Parainfluenza Virus 1 PCR Not Detected (NotDetected); Parainfluenza Virus 2 PCR Not Detected (NotDetected); Parainfluenza Virus 3 PCR Not Detected (NotDetected); Parainfluenza Virus 4 PCR Not Detected (NotDetected); Respiratory Syncytial VirusPCR Not Detected (NotDetected); Rhinovirus/Enterovirus PCR Not Detected (NotDetected)
[2023-07-06 21:56] LABS: Basophils # (auto) 0.07 K/uL (0.00-0.20); Basophils % (auto) 0.9 %; Eosinophils # (auto) 0.22 K/uL (0.00-0.50); Eosinophils % (auto) 2.8 %; Hemoglobin 12.1 g/dl (12.0-16.0); Immature Granulocytes # (auto) 0.03 K/uL (0.01-0.20); Immature Granulocytes % (auto) 0.4 %; Lymphocytes # (auto) 1.75 K/uL (1.20-3.40); Lymphocytes % (auto) 22.3 %; Mean Corpuscular Hgb Conc 31.8 g/dL (32.0-36.0); Mean Corpuscular Volume 91.1 fL (80.0-100.0); Mean Platelet Volume 10.2 fL (9.4-12.4); Monocytes # (auto) 0.79 K/uL (0.11-0.59); Monocytes % (auto) 10.1 %; Neutrophils % (auto) 63.5 %; Platelet Count 277 K/uL (130-400); RDW Standard Deviation 47.2 fL (36.4-46.3); Red Blood Count 4.17 M/uL (4.20-5.40); White Blood Count 7.86 K/ul (4.8-10.8)
[2023-07-06 22:02] LABS: Prothrombin Time 10.8 Seconds (9.0-12.0)
[2023-07-06 22:03] LABS: Albumin Globulin Ratio 1.9 (0.9-2); Albumin Level 3.8 gm/dl (3.4-5.0); Bilirubin,Total 0.4 mg/dl (0.2-1.0); Calcium 9.3 mg/dl (8.6-10.3); Est GFR (Non-African American) 48.3 ml/min; Potassium 3.7 mmol/L (3.5-5.1); Total Protein 5.8 gm/dl (6.0-8.3)
--- NOTE | 2023-07-06 22:04 | Emergency Department Note ---
Impression & Plan Shortness of breath, Bronchitis, Laryngopharyngeal reflux (LPR) ED Provider Note NAME: LEANNA KENNEDY AGE: 82 SEX: F : 1940 ARRIVES VIA: Ambulance INFORMANT: Patient ED PROVIDER(S): Ramón Farah MD CHIEF COMPLAINT: Shortness of breath. PLAN: Disposition: Admit MEDICAL DECISION MAKING: The patient is a pleasant 82-year-old woman with a past medical history of acid reflux, IBS, fibromyalgia, overactive bladder who presents to the emergency department via EMS and then accompanied by her daughter for evaluation of acute onset shortness of breath which occurred when she was at home and used her albuterol inhaler which was provided today during an emergency department visit to our facility earlier where she was diagnosed with bronchitis and treated with azithromycin. The patient reports that she has used albuterol in the past and has a nebulizer machine after she had severe COVID-19 previously. However she reports after using the inhaler she felt sudden inability to take in a breath and so 911 was called. She reports by time the ambulance arrived her symptoms had resolved. On my evaluation the patient is no distress, afebrile stable vital signs. She has normal respiratory effort. She has scant intermittent wheezes of bilateral lung ramirez and lungs are otherwise clear. EKG without overt acute ischemia. Chest x-ray negative for acute cardiopulmonary process per my preliminary independent interpretation WBC, H/H and platelets within normal limits. Chemistry without metabolic acidosis. Electrolytes and LFTs unremarkable. High-sensitivity troponin 4.2, within normal limits. Lipase is normal. Respiratory viral panel/[employer] was negative. He was treated initially with Solu-Medrol, guaifenesin and DuoNeb. Shortly after initiation of the patient's nebulizer treatment the patient developed increasing shortness of breath and was noted to have inspiratory stridor and so DuoNeb was discontinued. The patient was coached to attempt to calm her breathing and restlessness and gradually the stridor improved and then resolved. We did review the suspicion for component of laryngeal spasm and they do describe that the patient has had worsening acid reflux recently which correlates with the patient's respiratory symptoms and cough. Thus, suspect laryngal-pharyngeal reflux disease may be contributing the patient's symptoms at this time. CT of the neck and CTA of the chest were performed and were interpreted as negative for [facility] radiology. Patient and daughter agree for admission for further management. Case was discussed with Dr. Hunter [facility] hospitalist, who will evaluate the patient for admission. Triage Nursing notes reviewed and agree them. Prior/external medical records reviewed Vital Signs: reviewed Differential diagnosis: Reactive airway disease, pneumonia, pneumothorax, COPD, CHF, infections, cardiac ischemia, pulmonary embolism, musculoskeletal, gastrointestinal, as well as other pathologies. ER treatment provided: See below. Diagnostics interpreted by me: ECG: Normal sinus rhythm, 80 bpm, no ectopy, no overt ST elevation or depression, QTc 440, QRS 98. Cardiac Monitoring: An order for continuous cardiac monitoring was placed and demonstrated Normal sinus rhythm, 80 bpm, no ectopy. Laboratory studies: See below Imaging studies: See below Consultation(s): Case was discussed with JOSE Minaya hospitalist, who will evaluate the patient for admission. HPI: The patient is a pleasant 82-year-old woman with a past medical history of acid reflux, IBS, fibromyalgia, overactive bladder who presents to the emergency department via EMS and then accompanied by her daughter for evaluation of acute onset shortness of breath which occurred when she was at home and used her albuterol inhaler which was provided today during an emergency department visit to our facility earlier where she was diagnosed with bronchitis and treated with azithromycin. The patient reports that she has used albuterol in the past and has a nebulizer machine after she had severe COVID-19 previously. However she reports after using the inhaler she felt sudden inability to take in a breath and so 9 1 was called. She reports by time the ambulance arrived her symptoms had resolved. ROS: See above HPI for pertinent positives & negatives. A total of 10 systems reviewed and were otherwise negative. VITALS:See Below PHYSICAL EXAMINATION: GENERAL: Awake, alert, in no distress HENT: Normocephalic, atraumatic. Oropharynx with dry mucous membranes and otherwise unremarkable. EYES: Normal conjunctiva. Sclera non-icteric. NECK: Supple. No nuchal rigidity. FROM. No JVD. RESPIRATORY: Intermittent wheeze of bilateral lung ramirez with normal respiratory effort. CARDIAC: Regular rate, normal rhythm. Extremities warm and well perfused. Pulses equal. ABDOMEN: Soft, non-distended. No tenderness to palpation. No rebound or guarding. No masses. MUSCULOSKELETAL: Chest examination reveals no tenderness. The back is symmetrical on inspection without obvious abnormality. There is no CVA tenderness to palpation. No joint edema. LOWER EXTREMITIES: Calves are equal size bilaterally and non-tender. No edema. No discoloration. NEURO: Normal sensorium. No sensory or motor deficits noted. SKIN: No rash or jaundice noted. Ramón Farah MD Past Med/Surg History Medical History Adverse drug reaction History of anesthesia problem pt stated "she is concerned because her last colonoscopy took a long time and she had pain during the procedure and was aware of what was going on and does not want that to happen again" UTI (urinary tract infection) REASON FOR CURRENT ANX Osteoarthritis Chronic back pain follows with residential child care counselor GIST (gastrointestinal stromal tumor), non-malignant (~2019) HX History of COVID-19 end of January 2021. fever/cough/night sweats/fatigue/weakness. no current problems. Pulmonary embolism x3 s/p hysterectomy (30+ years ago) treated with blood thinners. no current problems. Heart murmur NO CARDS Secondary hyperparathyroidism pt unaware, I searched old records did not find dx Surgical History History of cataract surgery RT/LEFT History of bladder surgery bladder sling insertion History of colonoscopy History of esophagogastroduodenoscopy (EGD) History of repair of rectocele History of open reduction and internal fixation (ORIF) procedure right foot History of carpal tunnel surgery of left wrist History of carpal tunnel surgery of right wrist History of cholecystectomy History of tonsillectomy History of gastric surgery 2019 at [facility] to remove gastrointestinal stromal tumor H/O: hysterectomy vaginal hysterectomy Family History Grandmother Myocardial infarction Other No family history of adverse response to anesthesia No pertinent family history Denies family history of Ovarian cancer Prostate cancer Breast cancer Colorectal cancer Social History Smoking Status: Never smoker Tobacco Type: Cigarettes Second Hand Exposure: No; Do You Dip or Chew Tobacco: No; Hx Alcohol Use: No Hx Substance Use: No Preferred Language: Lebanese Communication Ability: Effective Hearing Ability: Use of Hearing Aid Supervisor Pile Driving Required: No Beliefs That Will Affect Care: None marital status: Current Living Situation: Spouse Current Living Situation Comment: home with current occupational status: retired How many Children do You have: 3 Feels Safe at Home: Yes Childhood Exposure to Second-Hand Smoke: Yes Diet: regular caffeine: Yes Dental Care, Regularly: No Physical Activity Frequency: Does not Exercise Seatbelt Use: always Sunscreen Use: No Assistive Devices: Cane, Crutches and Walker Allergies Allergies Allergy/AdvReac Type Severity Reaction Status Date / Time ampicillin Allergy Intermediate Rash Verified 07/07/23 01:08 Penicillins Allergy Intermediate Rash Verified 07/07/23 01:08 tetracycline Allergy Intermediate Rash Verified 07/07/23 01:08 albuterol AdvReac Severe cant Verified 07/07/23 01:08 breathe per pt clarithromycin AdvReac Mild GI UPSET Verified 07/07/23 01:08 metronidazole AdvReac Mild GI UPSET Verified 07/07/23 01:08 Home Meds Home Medications Medication Instructions Recorded Confirmed cholecalciferol (vitamin D3) 125 5,000 units PO QAM 01/09/19 07/07/23 mcg (5,000 unit) capsule multivitamin 3 tab PO QAM 02/09/21 07/07/23 melatonin 3 mg tablet 3 mg PO HS PRN Sleep 09/06/21 07/07/23 Ultimate Bladder Support 1 cap PO DAILY 06/28/22 07/07/23 Previous Rx's Medication Instructions Recorded meclizine 12.5 mg tablet 12.5 mg PO TID PRN dizziness #30 03/28/23 tabs azithromycin 250 mg tablet See Rx Instructions PO .COMPLEX #6 07/06/23 (Zithromax Z-Lorenzo) tabs Results & Data (ED) Vital Signs Vital Signs - 24 hr 07/06/23 19:49 07/06/23 19:51 07/06/23 19:51 Pulse Rate 86 Pulse Rate [Radial] Pulse Rhythm Respiratory Rate Respiratory Effort / Characteristics Non-Labored Respiratory Depth Normal Respiratory Pattern Regular Blood Pressure Blood Pressure [Right Arm] Blood Pressure Mean Blood Pressure Mean [Right Arm] Blood Pressure Position Pulse Oximetry Oxygen Delivery Method Room Air Room Air Sepsis Recent Fever Within 48 Hours Sepsis New/Unexplained Change in Mental Status Sepsis Action Taken by Nursing 07/06/23 19:52 07/06/23 22:08 07/06/23 22:11 Pulse Rate 77 Pulse Rate [Radial] Pulse Rhythm Regular Respiratory Rate 18 18 Respiratory Effort / Characteristics Non-Labored Non-Labored Spontaneous Respiratory Depth Normal Respiratory Pattern Regular Blood Pressure 126/75 Blood Pressure [Right Arm] Blood Pressure Mean 92 Blood Pressure Mean [Right Arm] Blood Pressure Position Sitting Pulse Oximetry 96 98 100 Oxygen Delivery Method Room Air Room Air Sepsis Recent Fever Within 48 Hours No Sepsis New/Unexplained Change in Mental Status N/A Sepsis Action Taken by Nursing No Action Required 07/06/23 23:00 07/07/23 00:13 07/07/23 01:00 Pulse Rate 73 Pulse Rate [Radial] 73 70 Pulse Rhythm Respiratory Rate 18 18 Respiratory Effort / Characteristics Non-Labored Spontaneous Non-Labored Spontaneous Respiratory Depth Normal Normal Respiratory Pattern Regular Regular Blood Pressure Blood Pressure [Right Arm] 125/72 108/60 Blood Pressure Mean Blood Pressure Mean [Right Arm] 89 76 Blood Pressure Position Pulse Oximetry 97 94 Oxygen Delivery Method Room Air Room Air Sepsis Recent Fever Within 48 Hours Sepsis New/Unexplained Change in Mental Status Sepsis Action Taken by Nursing Laboratory Data Attestation: I reviewed the patient's lab results. 07/06/23 19:47 07/06/23 19:47 Lab Results 07/06/23 07/06/23 Range/Units 19:47 20:55 WBC 7.86 (4.8-10.8) K/ul RBC 4.17 L (4.20-5.40) M/uL Hgb 12.1 (12.0-16.0) g/dl Hct 38.0 (37.0-47.0) % MCV 91.1 (80.0-100.0) fL MCH 29.0 (25.0-34.0) pg MCHC 31.8 L (32.0-36.0) g/dL RDW Std Deviation 47.2 H (36.4-46.3) fL RDW Coeff of Arleen 14.0 (11.5-14.5) % Plt Count 277 (130-400) K/uL MPV 10.2 (9.4-12.4) fL Immature Gran % (Auto) 0.4 % Neut % (Auto) 63.5 % Lymph % (Auto) 22.3 % [place] % (Auto) 10.1 % Eos % (Auto) 2.8 % Baso % (Auto) 0.9 % Neut # (Auto) 5.00 (1.40-6.50) K/uL Lymph # (Auto) 1.75 (1.20-3.40) K/uL [place] # (Auto) 0.79 H (0.11-0.59) K/uL Eos # (Auto) 0.22 (0.00-0.50) K/uL Baso # (Auto) 0.07 (0.00-0.20) K/uL Immature Gran # (Auto) 0.03 (0.01-0.20) K/uL ESR 7 (0-30) mm/hr PT 10.8 (9.0-12.0) Seconds INR 1.0 (0.9-1.1) Sodium 142 (136-145) mmol/L Potassium 3.7 (3.5-5.1) mmol/L Chloride 110 H (98-107) mmol/L Carbon Dioxide 25 (21-32) mmol/L Anion Gap 7 (3-11) BUN 15 (6-23) mg/dl Creatinine 1.07 (0.6-1.2) mg/dl Est Cr Clr Drug Dosing 42.0 ml/min Est GFR ( Amer) 56.0 ml/min Est GFR (Non-Af Amer) 48.3 ml/min BUN/Creatinine Ratio 14.0 (10-20) Glucose 102 H (70-99(Fasting)) mg/dl Calcium 9.3 (8.6-10.3) mg/dl Total Bilirubin 0.4 (0.2-1.0) mg/dl AST 23 (13-39) U/L ALT 13 (7-52) U/L Alkaline Phosphatase 67 (34-104) U/L Troponin I High Sens 4.2 (0-14) pg/ml Total Protein 5.8 L (6.0-8.3) gm/dl Albumin 3.8 (3.4-5.0) gm/dl Globulin 2.0 L (2.5-4.0) gm/dl Albumin/Globulin Ratio 1.9 (0.9-2) Lipase 31 (11-82) U/L Adenovirus (PCR) Not Detected (NotDetected) B. pertussis DNA (PCR) Not Detected (NotDetected) B.parapertussis DNA PCR Not Detected (NotDetected) C. pneumoniae DNA (PCR) Not Detected (NotDetected) Coronavirus OC43 (PCR) Not Detected (NotDetected) Coronavirus HKU1 (PCR) Not Detected (NotDetected) Coronavirus 229E (PCR) Not Detected (NotDetected) SARS-CoV-2 (PCR) Not Detected (NotDetected) Coronavirus NL63 (PCR) Not Detected (NotDetected) Human Metapneumovir PCR Not Detected (NotDetected) Influenza Type A (PCR) Not Detected (NotDetected) Influenza Type B (PCR) Not Detected (NotDetected) M. pneumoniae (PCR) Not Detected (NotDetected) Parainfluenza 1 (PCR) Not Detected (NotDetected) Parainfluenza 2 (PCR) Not Detected (NotDetected) Parainfluenza 3 (PCR) Not Detected (NotDetected) Parainfluenza 4 (PCR) Not Detected (NotDetected) RSV (PCR) Not Detected (NotDetected) Entero/Rhino (PCR) Not Detected (NotDetected) Administered Medications Discontinued Medications Albuterol (Albut/Ipratrop 3mg/0.5mg Neb 3 Ml Vial) 3 ml NEB NOW STA; Protocol Stop: 07/06/23 21:32 Last Admin: 07/06/23 22:06 Dose: 3 ml Documented By: SHA Dexamethasone Sodium Phosphate (DexamethasonePf 10 Mg/Ml Vial) 10 mg PO NOW ONE Stop: 07/06/23 23:25 Last Admin: 07/06/23 23:28 Dose: 10 mg Documented By: BOB Guaifenesin (Guaifenesin 600 Mg Tabcr) 600 mg PO NOW STA Stop: 07/06/23 21:32 Last Admin: 07/06/23 22:21 Dose: 600 mg Documented By: CARLEY Sodium Chloride (Nss) 1,000 mls @ 999 mls/hr IV .Q1H1M ONE Stop: 07/06/23 22:31 Last Infusion: 07/06/23 23:24 Dose: Infused Documented By: Admin: 07/06/23 22:19 Dose: 999 mls/hr Documented By: CARLEY Acetaminophen (Ofirmev) 1,000 mg in 100 mls @ 400 mls/hr IV NOW STA Stop: 07/06/23 21:53 Last Infusion: 07/06/23 23:24 Dose: Infused Documented By: Admin: 07/06/23 22:16 Dose: 400 mls/hr Documented By: CARLEY Famotidine (Pepcid 20mg Iv Push) 20 mg in 5 mls @ 2.5 mls/min IV NOW STA Stop: 07/06/23 22:53 Last Admin: 07/06/23 23:28 Dose: 2.5 mls/min Documented By: BOB Pantoprazole Sodium 40 mg/ (Syringe) 10 mls @ 5 mls/min IV NOW ONE Stop: 07/07/23 00:09 Last Admin: 07/07/23 01:19 Dose: 5 mls/min Documented By: BOB Ioversol (Optiray 320 125ml) 112 ml IV ONCE ONE Stop: 07/06/23 23:45 Last Admin: 07/06/23 23:44 Dose: 112 ml Documented By: LISA Methylprednisolone (Methylprednisolone 125 Mg/2 Ml Vial) 125 mg IV NOW STA Stop: 07/06/23 21:33 Last Admin: 07/06/23 22:13 Dose: 125 mg Documented By: CARLEY Methylprednisolone (Methylprednisolone 125 Mg/2 Ml Vial) 125 mg IV NOW STA Stop: 07/06/23 22:53 Last Admin: 07/06/23 23:25 Dose: Not Given Documented By: BOB Sodium Chloride (Sodium Chloride 0.65% Na Soln 45 Ml ([place])) 2 sprays NA NOW ONE Stop: 07/06/23 21:31 Last Admin: 07/06/23 22:23 Dose: 2 sprays Documented By: CARLEY Imaging Data Radiologist's Impression: Chest CTA 07/06/23 22:52 Exam(s): CTA CHEST IV Amt: 112ml opti 320 EXAM: CT Angiography Chest With Intravenous Contrast CLINICAL HISTORY: Reason for exam: sob, r/o PE. TECHNIQUE: Axial computed tomographic angiography images of the chest with intravenous contrast. CTDI is 18.22 mGy and DLP is 456.93 mGy-cm. Automated exposure control was utilized for the study. A dose lowering technique was utilized adhering to the principles of ALARA. MIP reconstructed images were created and reviewed. COMPARISON: No relevant prior studies available. FINDINGS: Pulmonary arteries: Unremarkable. No pulmonary embolism. Aorta: No acute findings. No thoracic aortic aneurysm. Lungs: Unremarkable. No mass. No consolidation. Pleural space: Unremarkable. No significant effusion. No pneumothorax. Heart: Unremarkable. No cardiomegaly. No significant pericardial effusion. No evidence of RV dysfunction. Bones/joints: No acute fracture. No dislocation. Soft tissues: Unremarkable. Lymph nodes: Unremarkable. No enlarged lymph nodes. IMPRESSION: Normal chest CTA. No pulmonary embolism. Electronically signed by: Mauro Hernandez MD 07/07/23 00:26 AM Soft Tissue Neck CT 07/06/23 22:52 Exam(s): CT NECK With Contrast IV Amt: 112ml [id number] EXAM: CT Neck With Intravenous Contrast CLINICAL HISTORY: Reason for exam: sob, bronchitis, ?laryngeal spasm. TECHNIQUE: Axial computed tomography images of the neck with intravenous contrast. CTDI is 26.81 mGy and DLP is 832.32 mGy-cm. Automated exposure control was utilized for the study. A dose lowering technique was utilized adhering to the principles of ALARA. CONTRAST: Patient received 112ml [id number] of IV contrast COMPARISON: No relevant prior studies available. FINDINGS: Oropharynx: Unremarkable. No significant tonsillar enlargement. No peritonsillar abscess. Hypopharynx: Unremarkable. Larynx: Unremarkable. Normal epiglottis. Trachea: Unremarkable. Retropharyngeal space: Unremarkable. Submandibular/parotid glands: Unremarkable. Glands are normal in size. Thyroid: Unremarkable. No enlarged or calcified nodules. Bones/joints: No acute fracture. Soft tissues: Unremarkable. Vasculature: No acute findings. Lymph nodes: Unremarkable. No lymphadenopathy. Lung apices: Unremarkable as visualized. IMPRESSION: Normal neck CT. Electronically signed by: Mauro Hernandez MD 07/07/23 00:29 AM Discharge Plan Visit Data Chief Complaint: Shortness of Breath/Dyspnea Stated Complaint: SOB ED Provider: Ramón Farah Discharge Problem: Shortness of breath, Bronchitis, Laryngopharyngeal reflux (LPR) Forms Stand Alone Forms: [facility] Prescriptions Prescriptions: No Action meclizine 12.5 mg tablet 12.5 mg PO TID PRN (Reason: dizziness) Qty: 30 1RF cholecalciferol (vitamin D3) 5,000 unit capsule 5,000 units PO QAM Ultimate Bladder Support 1 cap PO DAILY multivitamin Tablet 3 tab PO QAM melatonin 3 mg Tablet 3 mg PO HS PRN (Reason: Sleep) azithromycin [Zithromax Z-Lorenzo] 250 mg tablet See Rx Instructions PO .COMPLEX Qty: 6 0RF Rx Instructions: take 500 mg today (day 1), then 250 mg for 4 days (days 2-5) Referrals Referrals: Aleida Green CRNP [Primary Care Provider] -
[2023-07-06] MEDS: ALBUT/IPRATROP 3MG/0.5MG NEB 3 ML VIAL NEB STA (22:06)
[2023-07-06 22:10] LABS: Troponin I High Sensitivity 4.2 pg/ml (0-14)
[2023-07-06] MEDS: methylPREDNISolone 125 MG/2 ML VIAL IV STA ×2 (22:13→23:25)
[2023-07-06] MEDS: ACETAMINOPHEN 1,000 MG/100 ML VIAL IV STA (22:16)
[2023-07-06] MEDS: SODIUM CHLORIDE 0.9% 1,000 ML IV ONE (22:19)
[2023-07-06] MEDS: guaiFENesin 600 MG TABCR PO STA (22:21)
[2023-07-06] MEDS: SODIUM CHLORIDE 0.65% NA SOLN 45 ML (OCEAN) ONE (22:23)
[2023-07-06] MEDS: FAMOTIDINE 20MG IV PUSH 20 MG/5 ML SYR IV STA (23:28)
[2023-07-06] MEDS: dexAMETHasone**PF** 10 MG/ML VIAL PO ONE (23:28)
[2023-07-06] MEDS: OPTIRAY 320 125ml IV ONE (23:44)
--- NOTE | 2023-07-07 00:27 | CT Scan Report ---
Exam(s): CTA CHEST IV Amt: 112ml opti 320 EXAM: CT Angiography Chest With Intravenous Contrast CLINICAL HISTORY: Reason for exam: sob, r/o PE. TECHNIQUE: Axial computed tomographic angiography images of the chest with intravenous contrast. CTDI is 18.22 mGy and DLP is 456.93 mGy-cm. Automated exposure control was utilized for the study. A dose lowering technique was utilized adhering to the principles of ALARA. MIP reconstructed images were created and reviewed. COMPARISON: No relevant prior studies available. FINDINGS: Pulmonary arteries: Unremarkable. No pulmonary embolism. Aorta: No acute findings. No thoracic aortic aneurysm. Lungs: Unremarkable. No mass. No consolidation. Pleural space: Unremarkable. No significant effusion. No pneumothorax. Heart: Unremarkable. No cardiomegaly. No significant pericardial effusion. No evidence of RV dysfunction. Bones/joints: No acute fracture. No dislocation. Soft tissues: Unremarkable. Lymph nodes: Unremarkable. No enlarged lymph nodes. IMPRESSION: Normal chest CTA. No pulmonary embolism. Electronically signed by: Mauro Hernandez MD 07/07/23 00:26 AM
--- NOTE | 2023-07-07 00:30 | CT Scan Report ---
Exam(s): CT NECK With Contrast IV Amt: 112ml [id number] EXAM: CT Neck With Intravenous Contrast CLINICAL HISTORY: Reason for exam: sob, bronchitis, ?laryngeal spasm. TECHNIQUE: Axial computed tomography images of the neck with intravenous contrast. CTDI is 26.81 mGy and DLP is 832.32 mGy-cm. Automated exposure control was utilized for the study. A dose lowering technique was utilized adhering to the principles of ALARA. CONTRAST: Patient received 112ml [id number] of IV contrast COMPARISON: No relevant prior studies available. FINDINGS: Oropharynx: Unremarkable. No significant tonsillar enlargement. No peritonsillar abscess. Hypopharynx: Unremarkable. Larynx: Unremarkable. Normal epiglottis. Trachea: Unremarkable. Retropharyngeal space: Unremarkable. Submandibular/parotid glands: Unremarkable. Glands are normal in size. Thyroid: Unremarkable. No enlarged or calcified nodules. Bones/joints: No acute fracture. Soft tissues: Unremarkable. Vasculature: No acute findings. Lymph nodes: Unremarkable. No lymphadenopathy. Lung apices: Unremarkable as visualized. IMPRESSION: Normal neck CT. Electronically signed by: Mauro Hernandez MD 07/07/23 00:29 AM
[2023-07-07] MEDS: PANTOprazole 40 MG in SYRINGE 0 ML IV ONE (01:19)
--- NOTE | 2023-07-07 01:26 | History & Physical Report ---
Date of Service July 07, 2023 Assessment & Plan (1) Odynophagia: (2) Laryngopharyngeal reflux (LPR): (3) Overactive bladder: Plan Difficulty and painful swallowing- Patient presents to the emergency department twice within 12 hours with persistent symptoms of throat tightening, difficulty swallowing. Along with the symptoms she has had some intermittent shortness of breath issues There were concerns about possible exposure to bird droppings and moldy areas on top of windowsill but she claimed that the mask on HEENT examination is normal except for some mild dryness Lung examination is normal She describes issues with painful swallowing, and issues with chronically hard stools and difficulty moving her bowels. Discussed with her appropriate water intake There may be an element of swallowing dysfunctionality Consult gastroenterology for their opinion Consult speech therapy to assess swallowing May benefit from GI motility studies Add a sed rate and STACIE to the existing ED labs N.p.o. for now Pantoprazole 40 mg IV daily Acetaminophen 1 g IV every 8 hours as needed for mild pain or fever LR at 80 mL/h x 1 L Overactive bladder- For now hold treatments History of Present Illness Chief Complaint: The patient presents to the emergency department with complaint of 1 week of difficulty swallowing, irritated throat, ongoing constipation. She was initially seen in the emergency department on the afternoon of 07/05 after concerns regarding exposure to bird droppings and difficulty with breathing. She has been given a Z-Lorenzo, which she had not had filled yet, and and butyryl inhaler, which point she used feels like it made her throat feeling worse. She does presents to the emergency department several hours after her first visit, was given a number of treatments including IV Solu-Medrol, oral dexamethasone, and Protonix IV. She feels that the nebulizer seem to make her swallowing and irritation worse, and she was referred for evaluation for admission. Primary Care Provider: MIGUEL Mei Allergies Allergy/AdvReac Type Severity Reaction Status Date / Time ampicillin Allergy Intermediate Rash Verified 07/07/23 01:08 Penicillins Allergy Intermediate Rash Verified 07/07/23 01:08 tetracycline Allergy Intermediate Rash Verified 07/07/23 01:08 albuterol AdvReac Severe cant Verified 07/07/23 01:08 breathe per pt clarithromycin AdvReac Mild GI UPSET Verified 07/07/23 01:08 metronidazole AdvReac Mild GI UPSET Verified 07/07/23 01:08 Home Medications Medication Instructions Recorded Confirmed Type cholecalciferol (vitamin D3) 125 5,000 units PO QAM 01/09/19 07/07/23 History mcg (5,000 unit) capsule multivitamin 3 tab PO QAM 02/09/21 07/07/23 History melatonin 3 mg tablet 3 mg PO HS PRN Sleep 09/06/21 07/07/23 History Ultimate Bladder Support 1 cap PO DAILY 06/28/22 07/07/23 History meclizine 12.5 mg tablet 12.5 mg PO TID PRN dizziness #30 03/28/23 07/07/23 Rx tabs azithromycin 250 mg tablet See Rx Instructions PO .COMPLEX #6 07/06/23 07/07/23 Rx (Zithromax Z-Lorenzo) tabs Past Med/Surg History Medical History Adverse drug reaction History of anesthesia problem pt stated "she is concerned because her last colonoscopy took a long time and she had pain during the procedure and was aware of what was going on and does not want that to happen again" UTI (urinary tract infection) REASON FOR CURRENT ANX Osteoarthritis Chronic back pain follows with neonatal intensive care unit nurse GIST (gastrointestinal stromal tumor), non-malignant (~2019) HX History of COVID-19 end of January 2021. fever/cough/night sweats/fatigue/weakness. no current problems. Pulmonary embolism x3 s/p hysterectomy (30+ years ago) treated with blood thinners. no current problems. Heart murmur NO CARDS Secondary hyperparathyroidism pt unaware, I searched old records did not find dx Surgical History History of cataract surgery RT/LEFT History of bladder surgery bladder sling insertion History of colonoscopy History of esophagogastroduodenoscopy (EGD) History of repair of rectocele History of open reduction and internal fixation (ORIF) procedure right foot History of carpal tunnel surgery of left wrist History of carpal tunnel surgery of right wrist History of cholecystectomy History of tonsillectomy History of gastric surgery 2019 at [facility] [place] to remove gastrointestinal stromal tumor H/O: hysterectomy vaginal hysterectomy Family History Grandmother Myocardial infarction Other No family history of adverse response to anesthesia No pertinent family history Denies family history of Ovarian cancer Prostate cancer Breast cancer Colorectal cancer Social History Smoking Status: Never smoker Tobacco Type: Cigarettes Second Hand Exposure: No; Do You Dip or Chew Tobacco: No; Hx Alcohol Use: No Hx Substance Use: No Preferred Language: Setswana Communication Ability: Effective Hearing Ability: Use of Hearing Aid Handle Sewer Required: No Beliefs That Will Affect Care: None marital status: Current Living Situation: Spouse Current Living Situation Comment: home with current occupational status: retired How many Children do You have: 3 Feels Safe at Home: Yes Childhood Exposure to Second-Hand Smoke: Yes Diet: regular caffeine: Yes Dental Care, Regularly: No Physical Activity Frequency: Does not Exercise Seatbelt Use: always Sunscreen Use: No Assistive Devices: Cane, Crutches and Walker Review of Systems Review of Systems: The patient denies chest pain, palpitations, cough, lower extremity swelling, fevers, chills, sweats, weight change, fatigue, nausea, vomiting, abdominal pain, pelvic pain, blood in urine or stool, dysuria, urinary frequency or urgency, lightheadedness, dizziness, headache, memory loss, loss of consciousness, rash, abnormal bruising or bleeding, imbalance, focal or generalized weakness, numbness or tingling in arms or legs, generalized arthralgias or myalgias, back or neck pain, or night sweats. The review of systems is otherwise negative other than for that already noted above, and at least 10 systems have been reviewed. Physical Exam Physical Exam: The patient is awake, alert and oriented 3, well developed and well nourished, normocephalic and atraumatic, lying in bed and in no acute distress. HEENT--PERRL, EOMI, mucous membranes and oropharynx mildly dry Neck--supple. No JVD. No bruits. Thyroid normal, trachea midline, no adenopathy. Heart--normal S1 and S2. No murmurs, rubs or gallops. Lungs--clear bilaterally, no respiratory distress, no accessory muscle use. Abdomen--normal bowel sounds and soft. Nontender. Nondistended, no hernias or masses, no organomegaly. Extremities--no cyanosis or clubbing. No edema. Dermatologic--normal skin turgor, normal color, no abnormal lymph nodes, no rash. Neurologic--cranial nerves II through XII grossly intact. Rheumatologic--normal range of motion. Psychiatric--normal affect. Results & Data Results & Data Vital Signs (Past 12 Hours) Vital Signs Pulse Pulse Resp BP BP Pulse Ox O2 Del Method 07/07/23 01:00 70 18 108/60 94 Room Air 07/07/23 00:13 73 07/06/23 23:00 73 18 125/72 97 Room Air 07/06/23 22:11 100 07/06/23 22:08 18 98 Room Air 07/06/23 19:52 77 18 126/75 96 Room Air 07/06/23 19:51 Room Air 07/06/23 19:51 Room Air 07/06/23 19:49 86 Laboratory Results Laboratory Results WBC 7.86 K/ul (4.8-10.8) 07/06/23 19:47 RBC 4.17 M/uL (4.20-5.40) L 07/06/23 19:47 Hgb 12.1 g/dl (12.0-16.0) 07/06/23 19:47 Hct 38.0 % (37.0-47.0) 07/06/23 19:47 MCV 91.1 fL (80.0-100.0) 07/06/23 19:47 MCH 29.0 pg (25.0-34.0) 07/06/23 19:47 MCHC 31.8 g/dL (32.0-36.0) L 07/06/23 19:47 RDW Std Deviation 47.2 fL (36.4-46.3) H 07/06/23 19:47 RDW Coeff of Arleen 14.0 % (11.5-14.5) 07/06/23 19:47 Plt Count 277 K/uL (130-400) 07/06/23 19:47 MPV 10.2 fL (9.4-12.4) 07/06/23 19:47 Immature Gran % (Auto) 0.4 % 07/06/23 19:47 Neut % (Auto) 63.5 % 07/06/23 19:47 Lymph % (Auto) 22.3 % 07/06/23 19:47 [place] % (Auto) 10.1 % 07/06/23 19:47 Eos % (Auto) 2.8 % 07/06/23 19:47 Baso % (Auto) 0.9 % 07/06/23 19:47 Neut # (Auto) 5.00 K/uL (1.40-6.50) 07/06/23 19:47 Lymph # (Auto) 1.75 K/uL (1.20-3.40) 07/06/23 19:47 [place] # (Auto) 0.79 K/uL (0.11-0.59) H 07/06/23 19:47 Eos # (Auto) 0.22 K/uL (0.00-0.50) 07/06/23 19:47 Baso # (Auto) 0.07 K/uL (0.00-0.20) 07/06/23 19:47 Immature Gran # (Auto) 0.03 K/uL (0.01-0.20) 07/06/23 19:47 ESR 7 mm/hr (0-30) 07/06/23 19:47 PT 10.8 Seconds (9.0-12.0) 07/06/23 19:47 INR 1.0 (0.9-1.1) 07/06/23 19:47 Sodium 142 mmol/L (136-145) 07/06/23 19:47 Potassium 3.7 mmol/L (3.5-5.1) 07/06/23 19:47 Chloride 110 mmol/L (98-107) H 07/06/23 19:47 Carbon Dioxide 25 mmol/L (21-32) 07/06/23 19:47 Anion Gap 7 (3-11) 07/06/23 19:47 BUN 15 mg/dl (6-23) 07/06/23 19:47 Creatinine 1.07 mg/dl (0.6-1.2) 07/06/23 19:47 Est Cr Clr Drug Dosing 42.0 ml/min 07/06/23 19:47 Est GFR ( Amer) 56.0 ml/min 07/06/23 19:47 Est GFR (Non-Af Amer) 48.3 ml/min 07/06/23 19:47 BUN/Creatinine Ratio 14.0 (10-20) 07/06/23 19:47 Glucose 102 mg/dl (70-99(Fasting)) H 07/06/23 19:47 Calcium 9.3 mg/dl (8.6-10.3) 07/06/23 19:47 Total Bilirubin 0.4 mg/dl (0.2-1.0) 07/06/23 19:47 AST 23 U/L (13-39) 07/06/23 19:47 ALT 13 U/L (7-52) 07/06/23 19:47 Alkaline Phosphatase 67 U/L (34-104) 07/06/23 19:47 Troponin I High Sens 4.2 pg/ml (0-14) 07/06/23 19:47 Total Protein 5.8 gm/dl (6.0-8.3) L 07/06/23 19:47 Albumin 3.8 gm/dl (3.4-5.0) 07/06/23 19:47 Globulin 2.0 gm/dl (2.5-4.0) L 07/06/23 19:47 Albumin/Globulin Ratio 1.9 (0.9-2) 07/06/23 19:47 Lipase 31 U/L (11-82) 07/06/23 19:47 Adenovirus (PCR) Not Detected (NotDetected) 07/06/23 20:55 B. pertussis DNA (PCR) Not Detected (NotDetected) 07/06/23 20:55 B.parapertussis DNA PCR Not Detected (NotDetected) 07/06/23 20:55 C. pneumoniae DNA (PCR) Not Detected (NotDetected) 07/06/23 20:55 Coronavirus OC43 (PCR) Not Detected (NotDetected) 07/06/23 20:55 Coronavirus HKU1 (PCR) Not Detected (NotDetected) 07/06/23 20:55 Coronavirus 229E (PCR) Not Detected (NotDetected) 07/06/23 20:55 SARS-CoV-2 (PCR) Not Detected (NotDetected) 07/06/23 20:55 Coronavirus NL63 (PCR) Not Detected (NotDetected) 07/06/23 20:55 Human Metapneumovir PCR Not Detected (NotDetected) 07/06/23 20:55 Influenza Type A (PCR) Not Detected (NotDetected) 07/06/23 20:55 Influenza Type B (PCR) Not Detected (NotDetected) 07/06/23 20:55 M. pneumoniae (PCR) Not Detected (NotDetected) 07/06/23 20:55 Parainfluenza 1 (PCR) Not Detected (NotDetected) 07/06/23 20:55 Parainfluenza 2 (PCR) Not Detected (NotDetected) 07/06/23 20:55 Parainfluenza 3 (PCR) Not Detected (NotDetected) 07/06/23 20:55 Parainfluenza 4 (PCR) Not Detected (NotDetected) 07/06/23 20:55 RSV (PCR) Not Detected (NotDetected) 07/06/23 20:55 Entero/Rhino (PCR) Not Detected (NotDetected) 07/06/23 20:55 Impressions Chest CTA 07/06/23 22:52 Exam(s): CTA CHEST IV Amt: 112ml opti [id number] EXAM: CT Angiography Chest With Intravenous Contrast CLINICAL HISTORY: Reason for exam: sob, r/o PE. TECHNIQUE: Axial computed tomographic angiography images of the chest with intravenous contrast. CTDI is 18.22 mGy and DLP is 456.93 mGy-cm. Automated exposure control was utilized for the study. A dose lowering technique was utilized adhering to the principles of ALARA. MIP reconstructed images were created and reviewed. COMPARISON: No relevant prior studies available. FINDINGS: Pulmonary arteries: Unremarkable. No pulmonary embolism. Aorta: No acute findings. No thoracic aortic aneurysm. Lungs: Unremarkable. No mass. No consolidation. Pleural space: Unremarkable. No significant effusion. No pneumothorax. Heart: Unremarkable. No cardiomegaly. No significant pericardial effusion. No evidence of RV dysfunction. Bones/joints: No acute fracture. No dislocation. Soft tissues: Unremarkable. Lymph nodes: Unremarkable. No enlarged lymph nodes. IMPRESSION: Normal chest CTA. No pulmonary embolism. Electronically signed by: Mauro Hernandez MD 07/07/23 00:26 AM Soft Tissue Neck CT 07/06/23 22:52 Exam(s): CT NECK With Contrast IV Amt: 112ml [id number] EXAM: CT Neck With Intravenous Contrast CLINICAL HISTORY: Reason for exam: sob, bronchitis, ?laryngeal spasm. TECHNIQUE: Axial computed tomography images of the neck with intravenous contrast. CTDI is 26.81 mGy and DLP is 832.32 mGy-cm. Automated exposure control was utilized for the study. A dose lowering technique was utilized adhering to the principles of ALARA. CONTRAST: Patient received 112ml [id number] of IV contrast COMPARISON: No relevant prior studies available. FINDINGS: Oropharynx: Unremarkable. No significant tonsillar enlargement. No peritonsillar abscess. Hypopharynx: Unremarkable. Larynx: Unremarkable. Normal epiglottis. Trachea: Unremarkable. Retropharyngeal space: Unremarkable. Submandibular/parotid glands: Unremarkable. Glands are normal in size. Thyroid: Unremarkable. No enlarged or calcified nodules. Bones/joints: No acute fracture. Soft tissues: Unremarkable. Vasculature: No acute findings. Lymph nodes: Unremarkable. No lymphadenopathy. Lung apices: Unremarkable as visualized. IMPRESSION: Normal neck CT. Electronically signed by: Mauro Hernandez MD 07/07/23 00:29 AM Code Status & VTE Plan Code Status Full code VTE Prophylaxis Plan VTE Prophylaxis will be ordered: Yes PG Care Time/CCT Total # of Minutes Spent Total Time Spent with Patient: Total time spent is greater than 50% in coordination of care (as documented) at patient's floor/unit and/or counseling patient: Coding Level of Care Code 44205 INT INP/OBS CARE 2/55MIN Diagnoses Odynophagia R13.10 Laryngopharyngeal reflux (LPR) K21.9 Overactive bladder N32.81
[2023-07-07] MEDS: LACTATED RINGER'S 1,000 ML IV SCH (02:12)
[2023-07-07] MEDS ORDERED: ONDANSETRON INJ 2 MG/ML 2 ML VIAL IV PRN (02:48)
[2023-07-07] MEDS: ACETAMINOPHEN 1000 MG/100 ML IV IV PRN (03:40)
--- NOTE | 2023-07-07 07:52 | XRay Report ---
XR chest 1V portable HISTORY: Chest pain, nonspecific COMPARISON: Chest 07/06/2023. FINDINGS: The lungs are clear. Cardiac silhouette is normal in size. No pleural effusions. No pneumot horax. IMPRESSION: No acute process. ACT 112: Negative or not required by law. Electronically signed by: Fco Zepeda M.D. 07/07/2023 7:51 AM
[2023-07-07] MEDS: PANTOprazole 40 MG in SYRINGE 0 ML IV SCH (11:25)
--- NOTE | 2023-07-07 14:35 | Hospitalist Progress Note ---
Date of Service July 07, 2023 Assessment & Plan (1) Odynophagia: Plan: -CBC, CMP, ESR unremarkable, biofire negative. -CTA chest, soft tissue neck unremarkable for any abnormalities. -Patient evaluated by speech therapy - plan for video swallow hopefully Saturday. -Unclear otherwise cause of issue, possibly irritation/inflammation (recent bird exposure) vs autoimmune -Given methylpred 125mg and dexamethasone 10mg with good result. Did not respond well to neb treatment. -otherwise tolerated clear liquid diet today. Can advance as tolerated. -Pantoprazle 40mg IV daily. -Acetaminophen 1g IV q8h prn for pain or fever. (2) Overactive bladder: Plan: -Continue to monitor. Plan DVT: Patient ambulatory Dispo: Med/tele, video swallow study tomorrow hopefully. Admission and Anticipated Discharge Date Admission Date: July 07, 2023 Supervising Physician Co-Signing Physician Notes Attending Physician Supervision Note: I independently interviewed and examined the patient and verified the jefferson history and physical, reviewed labs and image studies and agree with findings and care plan noted above. [place] better this morning. Throat still is sore but able to swallow saliva. Pharynx - Erythema in the right tonsillar fold. CTAB Odynophagia/possible laryngospasm -received IV steroids in the ER. Neb treatment worsened the symptoms. -Evaluated by speech therapy. Reported history of choking with food. -Recommended to have VFS in a.m. -Continue PPI and monitoring -Clear liquid diet Subjective Patient seen at the bedside throughout the day. In the AM worried about the cost of the hospital stay and wanting to go home if going to cost them a lot or insurance won't cover. Later in the day patient more agreeable to workup with video swallow with speech therapy, very pleasant. She feels at her baseline and without any issue currently. Review of Systems Review of Systems: As per HPI. Physical Exam Constitutional: WD/WN, vitals as above Eyes: PERRL, conjunctivae normal, anicteric sclerae ENMT: Oropharynx with mild prominence and erythema of the posterior upper portion on the right, left side normal. Respiratory: normal respiratory effort, lungs clear to auscultation Chest (Breasts): normal inspection/palpation of breasts Gastrointestinal (Abdomen): normal bowel sounds, soft, nontender, no hepatosplenomegaly Psychiatric: A+Ox3, euthymic affect Results & Data Results & Data Vital Signs (Past 12 Hours) Vital Signs Temp Pulse Pulse Resp BP BP Pulse Ox 07/07/23 12:00 66 22 96 07/07/23 11:24 149/85 H 07/07/23 11:24 81 18 97 07/07/23 10:00 67 18 119/69 92 07/07/23 08:00 66 16 121/69 94 07/07/23 07:19 67 07/07/23 06:00 64 17 118/67 07/07/23 04:00 73 20 93 07/07/23 04:00 123/75 07/07/23 03:44 36.6 C 75 18 113/67 96 07/07/23 03:00 113/67 07/07/23 02:59 71 18 91 07/07/23 02:50 07/07/23 02:50 70 18 125/72 91 Pulse Ox O2 Del Method O2 Del Method 07/07/23 12:00 07/07/23 11:24 07/07/23 11:24 07/07/23 10:00 07/07/23 08:00 Room Air 07/07/23 07:19 07/07/23 06:00 07/07/23 04:00 07/07/23 04:00 07/07/23 03:44 Room Air 07/07/23 03:00 07/07/23 02:59 07/07/23 02:50 91 Room Air 07/07/23 02:50 Room Air Resident Activity Tracking Resident Involvement: Resident Care Provided Care Provided: Adult Hospital Medicine
--- NOTE | 2023-07-07 22:47 | Electrocardiogram Report ---
Test Reason : Blood Pressure : / mmHG Vent. Rate : 080 BPM Atrial Rate : 080 BPM P-R Int : 182 ms QRS Dur : 098 ms QT Int : 382 ms P-R-T Axes : 058 001 027 degrees QTc Int : 440 ms Normal sinus rhythm Normal ECG When compared with ECG of 28-JAN-2023 14:08, No significant change was found Confirmed by Joey Ramires ([id number]) on 07/07/2023 10:46:55 PM Referred By: REFERRED SELF Confirmed By:Joey Ramires
[2023-07-08 07:27] LABS: Basophils # (auto) 0.08 K/uL (0.00-0.20); Basophils % (auto) 0.8 %; Eosinophils # (auto) 0.09 K/uL (0.00-0.50); Eosinophils % (auto) 0.9 %; Hematocrit (blood only) 38.9 % (37.0-47.0); Immature Granulocytes # (auto) 0.04 K/uL (0.01-0.20); Immature Granulocytes % (auto) 0.4 %; Lymphocytes # (auto) 1.86 K/uL (1.20-3.40); Lymphocytes % (auto) 19.3 %; Mean Corpuscular Hemoglobin 29.5 pg (25.0-34.0); Mean Corpuscular Hgb Conc 33.4 g/dL (32.0-36.0); Mean Corpuscular Volume 88.4 fL (80.0-100.0); Mean Platelet Volume 10.3 fL (9.4-12.4); Monocytes # (auto) 0.94 K/uL (0.11-0.59); Monocytes % (auto) 9.7 %; Neutrophils # (auto) 6.65 K/uL (1.40-6.50); Neutrophils % (auto) 68.9 %; Platelet Count 294 K/uL (130-400); RDW Coefficient of Variation 14.2 % (11.5-14.5); RDW Standard Deviation 45.6 fL (36.4-46.3); White Blood Count 9.66 K/ul (4.8-10.8)
[2023-07-08 07:34] LABS: Albumin Level 3.9 gm/dl (3.4-5.0); Magnesium 2.1 mg/dl (1.7-2.4); Potassium 3.8 mmol/L (3.5-5.1)
[2023-07-08 07:40] LABS: BUN Creatinine Ratio 12.6 (10-20); Creatinine Clr Calc Pharmacy 46.2 ml/min; Est GFR (African American) 64.6 ml/min; Est GFR (Non-African American) 55.8 ml/min; Phosphorus 2.3 mg/dl (2.5-4.9)
[2023-07-08] MEDS: POLYETHYLENE (MIRALAX) 17 GM PACK PO PRN (08:39)
--- NOTE | 2023-07-08 10:28 | Fluoroscopy Report ---
FL video swallow HISTORY: assess for aspiration TECHNIQUE: Video fluoroscopic evaluation of swallowing was performed in the AP and lateral projection s by the speech pathology staff. The patient is fed nectar-thick and thin liquid barium, a barium [place] wafer, and barium pudding. FLUOROSCOPY TIME: 1 minute and 18 seconds.. Ka,r: 9.1 mGy COMPARISON STUDY: None. FINDINGS: There is normal hyoid excursion and epiglottic deflection. No significant penetration or as piration identified. Swallowing function is within normal limits. IMPRESSION: 1. No aspiration identified. 2. Please see the speech pathologist report for detailed findings and recommendations. ACT 112: Negative or not required by law. Electronically signed by: Fco Zepeda M.D. 07/08/2023 10:26 AM
--- NOTE | 2023-07-08 10:39 | Discharge Summary ---
Date of Service July 08, 2023 Admission HPI Per Admitting Provider The patient presents to the emergency department with complaint of 1 week of difficulty swallowing, irritated throat, ongoing constipation. She was initially seen in the emergency department on the afternoon of 07/05 after concerns regarding exposure to bird droppings and difficulty with breathing. She has been given a Z-Lorenzo, which she had not had filled yet, and and butyryl inhaler, which point she used feels like it made her throat feeling worse. She does presents to the emergency department several hours after her first visit, was given a number of treatments including IV Solu-Medrol, oral dexamethasone, and Protonix IV. She feels that the nebulizer seem to make her swallowing and irritation worse, and she was referred for evaluation for admission. Admission Exam Per Admitting Provider The patient is awake, alert and oriented 3, well developed and well nourished, normocephalic and atraumatic, lying in bed and in no acute distress. HEENT--PERRL, EOMI, mucous membranes and oropharynx mildly dry Neck--supple. No JVD. No bruits. Thyroid normal, trachea midline, no adenopathy. Heart--normal S1 and S2. No murmurs, rubs or gallops. Lungs--clear bilaterally, no respiratory distress, no accessory muscle use. Abdomen--normal bowel sounds and soft. Nontender. Nondistended, no hernias or masses, no organomegaly. Extremities--no cyanosis or clubbing. No edema. Dermatologic--normal skin turgor, normal color, no abnormal lymph nodes, no rash. Neurologic--cranial nerves II through XII grossly intact. Rheumatologic--normal range of motion. Psychiatric--normal affect. Principal Diagnosis dysphagia Discharge Exam Gen: well appearing patient in NAD HEENT: AT NC MMM OP clear, no lymphadenopathy Resp: CTAB no increased work of breathing CV: RRR no m/r/g clinically well perfused Abd: non-distended MSK: no obvious deformities Skin: no rashes or bruising Neuro: alert and oriented Psych: appropriate mood and affect Discharge Data Allergies Allergy/AdvReac Type Severity Reaction Status Date / Time ampicillin Allergy Intermediate Rash Verified 07/07/23 01:08 Penicillins Allergy Intermediate Rash Verified 07/07/23 01:08 tetracycline Allergy Intermediate Rash Verified 07/07/23 01:08 albuterol AdvReac Severe cant Verified 07/07/23 01:08 breathe per pt clarithromycin AdvReac Mild GI UPSET Verified 07/07/23 01:08 metronidazole AdvReac Mild GI UPSET Verified 07/07/23 01:08 Consultations 07/07/23 00:37 ED Decision to Admit Stat Ordered Studies Chest X-Ray 07/06/23 21:30 FINDINGS: The lungs are clear. Cardiac silhouette is normal in size. No pleural effusions. No pneumothorax. IMPRESSION: No acute process. Chest CTA 07/06/23 22:52 FINDINGS: Pulmonary arteries: Unremarkable. No pulmonary embolism. Aorta: No acute findings. No thoracic aortic aneurysm. Lungs: Unremarkable. No mass. No consolidation. Pleural space: Unremarkable. No significant effusion. No pneumothorax. Heart: Unremarkable. No cardiomegaly. No significant pericardial effusion. No evidence of RV dysfunction. Bones/joints: No acute fracture. No dislocation. Soft tissues: Unremarkable. Lymph nodes: Unremarkable. No enlarged lymph nodes. IMPRESSION: Normal chest CTA. No pulmonary embolism. Soft Tissue Neck CT 07/06/23 22:52 FINDINGS: Oropharynx: Unremarkable. No significant tonsillar enlargement. No peritons illar abscess. Hypopharynx: Unremarkable. Larynx: Unremarkable. Normal epiglottis. Trachea: Unremarkable. Retropharyngeal space: Unremarkable. Submandibular/parotid glands: Unremarkable. Glands are normal in size. Thyroid: Unremarkable. No enlarged or calcified nodules. Bones/joints: No acute fracture. Soft tissues: Unremarkable. Vasculature: No acute findings. Lymph nodes: Unremarkable. No lymphadenopathy. Lung apices: Unremarkable as visualized. IMPRESSION: Normal neck CT. Videofluoroscopic Swallow 07/08/23 15:17 COMPARISON STUDY: None. FINDINGS: There is normal hyoid excursion and epiglottic deflection. No significant penetration or aspiration identified. Swallowing function is within normal limits. IMPRESSION: 1. No aspiration identified. 2. Please see the speech pathologist report for detailed findings and recommendations. Hospital Course (1) Odynophagia: Unclear otherwise cause of issue, possibly irritation/inflammation (recent bird exposure) vs autoimmune. Workup unremarkable - CBC, CMP, ESR WNL, biofire negative, CTA chest, soft tissue neck unremarkable. Likely viral etiology. Improved with steroids will do a short course upon discharge. Evaluated by speech therapy - video swallow negative. Tolerating easy to chew. Continue PPI upon discharge. Can use Tylenol as needed for pain. STACIE pending. Would f/u with PCP. (2) Overactive bladder: Continue to monitor. Total Time Total Time Spent Total Time Spent (In Minutes): <30 Discharge Plan Discharge Items Patient Disposition: Home - Self-Care Reason For Visit: ODYNOPHAGIA Discharge Diagnosis: odynophagia Activity: Per Instructions section Non-emergency contact: Primary Care Provider and [employer] Machine Set Up Mechanic Call non-emergency contact if: your symptoms worsen, your pain is worsening and your temperature is above 101 Follow-up/Referrals: Aleida Green CRNP [Primary Care Provider] - 07/16/23 10:30 am Diet: Regular Addtl Attending Provider Instructions: You came to the ER due to concern for difficulty breathing. While you were in the hospital we check blood work and a CT scan of your neck for any abnormalities. Your blood work came back looking normal and there were no abnormalities that were found on the scan. While you were hospitalized you had been given IV and oral steroid with good effect at reducing the symptoms you came in with. We started an acid planning technician called pantoprazole. We will continue with the oral version omeprazole 40 mg daily. We will give you a short course of oral steroids. You can also take your Z-pack as prescribed. Follow up with your PCP within the next week or so. Pending Studies at Discharge: Yes Studies:: STACIE Stand-Alone Forms: [facility] TYMR, Smoking Cessation Medications and DC Order Prescriptions: New cyanocobalamin (vitamin B-12) 1,000 mcg tablet 1,000 mcg PO DAILY Qty: 30 3RF prednisone 20 mg tablet 40 mg PO DAILY 4 Days Qty: 8 0RF omeprazole 40 mg capsule,delayed release(DR/EC) 40 mg PO DAILY Qty: 30 0RF Continued meclizine 12.5 mg tablet 12.5 mg PO TID PRN (Reason: dizziness) Qty: 30 1RF cholecalciferol (vitamin D3) 5,000 unit capsule 5,000 units PO QAM Ultimate Bladder Support 1 cap PO DAILY multivitamin Tablet 3 tab PO QAM melatonin 3 mg Tablet 3 mg PO HS PRN (Reason: Sleep) Discontinued azithromycin [Zithromax Z-Lorenzo] 250 mg tablet See Rx Instructions PO .COMPLEX Qty: 6 0RF Rx Instructions: take 500 mg today (day 1), then 250 mg for 4 days (days 2-5) Discharge Orders: Discharge Order (Routine); Ordered 07/08/23 Ordered By: Cheryl Gonzalez Admission Data Admit Date/Time: 07/07/23 01:26 Attending Provider: Mauro Rosado Admit Provider: Kenny Hunter Primary Care Provider: Aleida Green Other Providers: Kenny Hunter Other Interventions: Discharge Summary Assessment (RN) Last Done: 07/08/23 15:16 Supervising Physician Co-Signing Physician Notes I personally examined the patient and verified all jefferson points of history and exam, discussed case, and agree with decision making with Dr Gonzalez feeling better and very much like to go home. Notes that these problems are all acute. Only chronic problem is occasional reflux. Vitals noted, in general she is awake and alert pleasant no distress. HEENT normocephalic atraumatic mucous membranes moist. Breathing unlabored no accessory muscle use good effort. Skin shows no rashes no pallor or icterus. Odynophagia/possible laryngospasm -received IV steroids in the ER. Neb treatment worsened the symptoms. -Evaluated by speech therapy. Reported history of choking with food. - Video fluoroscopy very reassuring, possible some degree of dysmotility. But on discussion with patient she does not really seem to have chronic symptoms to match. Safe for home, suspect current acute symptoms were related to a viral illness, and this is improving. No clear need for management for the dysmotility seen on video swallow given new symptoms to correlate to it. -safe/stable for home Resident Activity Tracking Resident Involvement: Resident Care Provided Care Provided: Adult Hospital Medicine
--- NOTE | 2023-07-08 17:44 | Billing Data ---
Date of Service July 08, 2023 Coding Level of Care Code 43644 IN/OBS DISCH 30 MIN/LESS
[2023-07-09 12:27] LABS: Anti Nuclear Antibody Screen NEGATIVE (NEGATIVE)
== END 2023-07-08 15:53 | disposition home or self-care (01) ==
LOC: ED 19:37 → EDINP 19:37 → SUATTDRO 07-07 01:26 → 2N 07-07 02:48